=== PATIENT | female | born 1950 | race Caucasian/White ===

== ENCOUNTER → 2019-07-24 | Outpatient (CLI) | payer MEDICARE, SELFPAY | PROVIDERS: Family Provider Nurse Practitioner; Visit Provider Internal Medicine Hematology & Oncology | DX: D64.9 Anemia, unspecified (principal); D72.819 Decreased white blood cell count, unspecified | CPT/HCPCS: 82607; 82728; 85025; 99213 ==

== ENCOUNTER 2020-01-05 14:14 | Outpatient (CLI) | payer MEDICARE, SELFPAY ==
[2020-01-05 14:40] LABS: Basophils % 0.4 %; Eosinophils % 0.7 %; Hematocrit 38.8 % (37.0-47.0); Lymphocytes % 35.7 %; Mean Corpuscular HGB Conc 30.9 g/dL (30.0-36.0); Mean Corpuscular Hemoglobin 27.8 pg (28.0-34.0); Mean Platelet Volume 10.9 fL (7.4-10.4); Monocytes # 0.4 10^3/uL (0.2-0.9); Monocytes % 13.4 %; Neutrophils # 1.3 10^3/uL (1.8-7.7); Neutrophils % 49.8 %; Nucleated Red Blood Cells % 0 %; Platelet Count 179 10^3/cmm (130-400); Red Blood Count 4.31 10^6/uL (4.1-5.3); White Blood Count 2.7 10^3/uL (4.0-10.0)
[2020-01-05 15:03] LABS: Ferritin 137 ng/mL (15-150)
[2020-01-05 15:15] LABS: Vitamin B12 486 pg/mL (232-1245)
--- NOTE | 2020-01-05 16:24 | ONC FU_ITS ---
Dr. Valerio follow up note Patient: Clare Stovall Unit #: [id number]: 1950 Dicatated By: Shilpa Valerio M.D.Date of Visit:Jan 05, 2020 Onc Med Follow-up/Prog Note History of Present Illness: Mrs. Clare Stovall is a 69-year-old female who was admitted to hospital on 01/10/2019 with multiple bee stings. 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 She was treated with supportive care and epinephrine drip and her initial lab showed severe anemia hemoglobin was 7.3 g hematocrit 24.6 white blood count 3.8 and platelets 379,000 she was given 2 units of packed RBCs. Prior to admission she was not aware of anemia and anemia related symptoms. Patient denies any history of melena or hematochezia, denies any history of hemoptysis or hematemesis, denies any history of nosebleed or gross bleeding. History of anemia during at that time she took iron supplements. EGD colonoscopy done on 03/23/2019 showed moderate chronic patchy gastritis but no bleeding and colonoscopy was unremarkable. Came for follow-up, denies any specific complaints, no fever or chills, no nausea or vomiting, no diarrhea or constipation, no weight loss, appetite is good, no shortness of breath or palpitation. Medications: Ferrous Sulfate 1 Tablet (of 325 (65 fe) mg) Oral daily, Metoprolol Tartrate 1 Tablet (of 25 mg) Oral b.i.d. Allergies: Bee Sings Review of Systems: Review of Systems is not available for this patient. Vital Signs: Performed on Jan 05, 2020 15:42 Height - 61.50 in Weight - 127.8 lbs (HIGH) BSA - 1.57 sq.m BMI - 23.76 Temperature - 97.2 F (LOW) Pulse - 77 /min Respiration - 18 /min BP - 208/117 mm(hg) (HIGH) O2 Sat - 97 % Pain - 0 Performance Status: 0 - Fully active, able to carry on all predisease activities without restrictions. (ECOG) Physical Examination: ENMT - No mouth sores, no thrush, Respiratory - Lungs are clear, Cardiovascular - Regular rate and rhythm of heart, Abdomen - Soft, bowel sounds present, Extremities - No visible edema. Lab/Imaging: Test performed on Jan 05, 2020 14:24 WBC 2.7 10 3/uL RBC 4.31 10 6/uL HGB 12.0 g/dL HCT 38.8 % MCV 90.0 fL MCH 27.8 pg MCHC 30.9 g/dL RDW 13.0 % Platelet Count 179 10 3/cmm MPV 10.9 fL Neutrophils 1.3 10 3/uL Lymphocytes 1.0 10 3/uL Monocytes 0.4 10 3/uL Eosinophils 0.0 10 3/uL Basophils 0.0 10 3/uL Neutrophil % 49.8 % Lymphocyte % 35.7 % Monocyte % 13.4 % Eosinophil % 0.7 % Basophils % 0.4 % NRBC % 0 % Test performed on Jul 24, 2019 09:10 Ferritin 123.0 ng/ml Vitamin B12 693 pg/mL Impression: Microcytic anemia most likely iron deficiency due to either malabsorption or chronic GI blood loss. Considering her age underlying myelodysplasia cannot be ruled out. Her CBC from 01/10/2019 showed white blood count 3.8, hemoglobin 7.3 mg, hematocrit 24.6 platelets 379,000 and creatinine 1 Lab workup done on 01/15/2019 shows B12 207 normal being 232 -1245 and ferritin 25 folic acid 6 iron saturation 4.6 She was given 2 units of packed RBCs on 01/11/2019 Plan: Discussed with patient regarding her labs white blood count 2.7 hemoglobin 12 hematocrit 38.8 platelets 179,000 absolute neutrophil count 1300 ferritin 137, B12 486 Clinically, patient is doing well, no new signs symptoms, or follow-up labs shows hemoglobin and iron stores as well as B12 level is within normal range but there is a progressive leukopenia, etiology unclear but considering her age underlying myelodysplasia cannot be ruled out. We will monitor her closely and she will return to clinic in 2 months with CBC and if it shows progressive leukopenia then will consider bone marrow evaluation. Signed By: Shilpa Valerio M.D. <<Signature on File>>
--- NOTE | 2020-01-05 16:27 | ONC FU_ITS ---
Dr. Valerio follow up note Patient: Clare Stovall Unit #: [id number]: 1950 Dicatated By: Shilpa Valerio M.D.Date of Visit:Jan 05, 2020 Onc Med Follow-up/Prog Note History of Present Illness: Mrs. Clare Stovall is a 69-year-old female who was admitted to hospital on 01/10/2019 with multiple bee stings. 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 She was treated with supportive care and epinephrine drip and her initial lab showed severe anemia hemoglobin was 7.3 g hematocrit 24.6 white blood count 3.8 and platelets 379,000 she was given 2 units of packed RBCs. Prior to admission she was not aware of anemia and anemia related symptoms. Patient denies any history of melena or hematochezia, denies any history of hemoptysis or hematemesis, denies any history of nosebleed or gross bleeding. History of anemia during at that time she took iron supplements. EGD colonoscopy done on 03/23/2019 showed moderate chronic patchy gastritis but no bleeding and colonoscopy was unremarkable. Came for follow-up, denies any specific complaints, no fever or chills, no nausea or vomiting, no diarrhea or constipation, no weight loss, appetite is good, no shortness of breath or palpitation. Medications: Ferrous Sulfate 1 Tablet (of 325 (65 fe) mg) Oral daily, Metoprolol Tartrate 1 Tablet (of 25 mg) Oral b.i.d. Allergies: Bee Sings Review of Systems: Review of Systems is not available for this patient. Vital Signs: Performed on Jan 05, 2020 15:42 Height - 61.50 in Weight - 127.8 lbs (HIGH) BSA - 1.57 sq.m BMI - 23.76 Temperature - 97.2 F (LOW) Pulse - 77 /min Respiration - 18 /min BP - 208/117 mm(hg) (HIGH) O2 Sat - 97 % Pain - 0 Performance Status: 0 - Fully active, able to carry on all predisease activities without restrictions. (ECOG) Physical Examination: ENMT - No mouth sores, no thrush, Respiratory - Lungs are clear, Cardiovascular - Regular rate and rhythm of heart, Abdomen - Soft, bowel sounds present, Extremities - No visible edema. Lab/Imaging: Test performed on Jan 05, 2020 14:24 WBC 2.7 10 3/uL RBC 4.31 10 6/uL HGB 12.0 g/dL HCT 38.8 % MCV 90.0 fL MCH 27.8 pg MCHC 30.9 g/dL RDW 13.0 % Platelet Count 179 10 3/cmm MPV 10.9 fL Neutrophils 1.3 10 3/uL Lymphocytes 1.0 10 3/uL Monocytes 0.4 10 3/uL Eosinophils 0.0 10 3/uL Basophils 0.0 10 3/uL Neutrophil % 49.8 % Lymphocyte % 35.7 % Monocyte % 13.4 % Eosinophil % 0.7 % Basophils % 0.4 % NRBC % 0 % Test performed on Jul 24, 2019 09:10 Ferritin 123.0 ng/ml Vitamin B12 693 pg/mL Impression: Microcytic anemia most likely iron deficiency due to either malabsorption or chronic GI blood loss. Considering her age underlying myelodysplasia cannot be ruled out. Her CBC from 01/10/2019 showed white blood count 3.8, hemoglobin 7.3 mg, hematocrit 24.6 platelets 379,000 and creatinine 1 Lab workup done on 01/15/2019 shows B12 207 normal being 232 -1245 and ferritin 25 folic acid 6 iron saturation 4.6 She was given 2 units of packed RBCs on 01/11/2019 Plan: Discussed with patient regarding her labs white blood count 2.7 hemoglobin 12 hematocrit 38.8 platelets 179,000 absolute neutrophil count 1300 ferritin 137, B12 486 Clinically, patient is doing well, no new signs symptoms, or follow-up labs shows hemoglobin and iron stores as well as B12 level is within normal range but there is a progressive leukopenia, etiology unclear but considering her age underlying myelodysplasia cannot be ruled out. Other possibility could be splenic sequestration, we will consider abdominal sonogram with special attention to spleen size. We will monitor her closely and she will return to clinic in 2 months with CBC and if it shows progressive leukopenia then will consider bone marrow evaluation. Signed By: Shilpa Valerio M.D. <<Signature on File>>
== END 2020-01-05 14:15 | disposition home or self-care (01) ==
LOC: ONCMED 14:19
PROVIDERS: PCP Nurse Practitioner; Visit Provider Internal Medicine Hematology & Oncology
DX: D50.9 Iron deficiency anemia, unspecified (principal); D51.9 Vitamin B12 deficiency anemia, unspecified; D72.819 Decreased white blood cell count, unspecified
CPT/HCPCS: 36415; 82607; 82728; 85025; 99214

== ENCOUNTER 2020-02-01 09:19 | Outpatient (CLI) | payer MEDICARE, SELFPAY ==
--- NOTE | 2020-02-01 09:29 | US_ITS ---
WS: [id number] Complete ABDOMINAL ULTRASOUND HISTORY: LEUKOPENIA COMPARISON: None available. Liver: 10.2 cm in length. Liver is normal size and echogenicity with no mass or intrahepatic dilatati on. Gallbladder: Normally distended gallbladder with stones. No wall thickening. No pericholecystic fluid . Gallbladder wall thickness: 0.1 cm. Pancreas: Normal size and echogenicity. CBD: 0.2 cm. Right kidney: 8.4 cm x 4.0 cm x 3.6 cm. Mild cortical thinning. Mild atrophy with no hydronephrosis or solid mass. Left kidney: 7.8 cm x 4.0 cm x 3.6 cm. Mild renal atrophy and cortical thinning. 2 cyst upper pole L EFT kidney. Largest measures 2.3 x 2.2 x 1.7 cm. Spleen: Spleen is normal length. 10.9 cm. Abdominal aorta and IVC are within normal limits. No ascites. US/US abdomen complete* [id number] IMPRESSION: 1. Mild bilateral renal atrophy and LEFT renal cysts. 2. Cholelithiasis without acute cholecystitis. 3. Normal length spleen at 10.9 cm.
== END 2020-02-01 09:20 | disposition home or self-care (01) ==
LOC: US 09:20
PROVIDERS: PCP Nurse Practitioner; Visit Provider Internal Medicine Hematology & Oncology
DX: D72.819 Decreased white blood cell count, unspecified (principal); N26.1 Atrophy of kidney (terminal); Q61.02 Congenital multiple renal cysts; K80.20 Calculus of gallbladder without cholecystitis without obstruction
CPT/HCPCS: 76700

== ENCOUNTER 2020-03-09 09:58 | Outpatient (CLI) | payer MEDICARE, SELFPAY ==
[2020-03-09 10:42] LABS: Basophils % 0.3 %; Eosinophils # 0.1 10^3/uL (0.0-0.8); Eosinophils % 1.5 %; Hematocrit 40.3 % (37.0-47.0); Hemoglobin 12.5 g/dL (11.5-15.3); Lymphocytes # 1.1 10^3/uL (0.8-4.8); Lymphocytes % 30.8 %; Mean Corpuscular Hemoglobin 27.5 pg (28.0-34.0); Mean Corpuscular Volume 88.8 fL (81-99); Mean Platelet Volume 11.2 fL (7.4-10.4); Monocytes # 0.5 10^3/uL (0.2-0.9); Monocytes % 13.4 %; Neutrophils # 1.85 10^3/uL (1.8-7.7); Neutrophils % 53.7 %; Nucleated Red Blood Cells % 0 %; Platelet Count 166 10^3/cmm (130-400); Red Blood Count 4.54 10^6/uL (4.1-5.3); Red Cell Distribution Width 13.3 % (12.1-15.1); White Blood Count 3.4 10^3/uL (4.0-10.0)
--- NOTE | 2020-03-10 16:31 | ONC FU_ITS ---
Dr. Valerio follow up note Patient: Clare Stovall Unit #: [id number]: 1950 Dicatated By: Shilpa Valerio M.D.Date of Visit:Mar 09, 2020 Onc Med Follow-up/Prog Note History of Present Illness: Mrs. Clare Stovall is a 69-year-old female who was admitted to hospital on 01/10/2019 with multiple bee stings. 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 She was treated with supportive care and epinephrine drip and her initial lab showed severe anemia hemoglobin was 7.3 g hematocrit 24.6 white blood count 3.8 and platelets 379,000 she was given 2 units of packed RBCs. Prior to admission she was not aware of anemia and anemia related symptoms. Patient denies any history of melena or hematochezia, denies any history of hemoptysis or hematemesis, denies any history of nosebleed or gross bleeding. History of anemia during at that time she took iron supplements. EGD colonoscopy done on 03/23/2019 showed moderate chronic patchy gastritis but no bleeding and colonoscopy was unremarkable. Abdominal sonogram done on February 01, 2020 showed mild bilateral renal atrophy with left renal cysts spleen is normal size Came for follow-up, denies any specific complaints, no nausea no vomiting, no diarrhea no constipation, no fever chills, no peripheral lymphadenopathy, no abdominal fullness, no night sweats, no weight loss, no recurrent fever, no melena or hematochezia Medications: Ferrous Sulfate 1 Tablet (of 325 (65 fe) mg) Oral daily, Metoprolol Tartrate 1 Tablet (of 25 mg) Oral b.i.d. Allergies: Bee Sings Review of Systems: Constitutional - Appetite is fair and weight is stable. No fever, chills, hot flashes, or night sweats. Energy level is fair, ENMT - No sinus congestion/drainage. No mouth sores. No sore throat or difficulty swallowing, Hematologic/Lymphatic - Pt reports frequent nosebleeds, Respiratory - No shortness of breath. No cough. No pleuritic pain or hemoptysis, Cardiovascular - No angina pain. Positive for palpitations, Gastrointestinal - No nausea or vomiting. No heartburn or acid reflux. No diarrhea or constipation. No blood in the stool or black stools, Genitourinary (F) - No dysuria or hematuria. Positive for nocturia. No urgency, Positive for incontinence, Musculoskeletal - Positive for joint pain, Neurologic - No headache or dizziness. No numbness/paresthesias or other focal neurologic symptoms, Psychiatric - No anxiety or depression. Positive for insomnia. Vital Signs: Performed on Mar 09, 2020 12:04 Height - 61.50 in Weight - 125.0 lbs (LOW) BSA - 1.56 sq.m BMI - 23.24 Temperature - 98.4 F Pulse - 64 /min Respiration - 18 /min BP - 130/90 mm(hg) O2 Sat - 99 % Pain - 0 Performance Status: 0 - Fully active, able to carry on all predisease activities without restrictions. (ECOG) Physical Examination: ENMT - No mouth sores, no thrush, no jaundice, Respiratory - Lungs are clear, Cardiovascular - Regular rate and rhythm of heart, Abdomen - Soft, bowel sounds present, Extremities - No visible edema or rash. Lab/Imaging: Test performed on Jan 05, 2020 14:24 Ferritin 137 ng/mL Vitamin B12 486 pg/mL WBC 2.7 10 3/uL RBC 4.31 10 6/uL HGB 12.0 g/dL HCT 38.8 % MCV 90.0 fL MCH 27.8 pg MCHC 30.9 g/dL RDW 13.0 % Platelet Count 179 10 3/cmm MPV 10.9 fL Neutrophils 1.3 10 3/uL Lymphocytes 1.0 10 3/uL Monocytes 0.4 10 3/uL Eosinophils 0.0 10 3/uL Basophils 0.0 10 3/uL Neutrophil % 49.8 % Lymphocyte % 35.7 % Monocyte % 13.4 % Eosinophil % 0.7 % Basophils % 0.4 % NRBC % 0 % Impression: Microcytic anemia most likely iron deficiency due to either malabsorption or chronic GI blood loss. Considering her age underlying myelodysplasia cannot be ruled out. Her CBC from 01/10/2019 showed white blood count 3.8, hemoglobin 7.3 mg, hematocrit 24.6 platelets 379,000 and creatinine 1 Lab workup done on 01/15/2019 shows B12 207 normal being 232 -1245 and ferritin 25 folic acid 6 iron saturation 4.6 She was given 2 units of packed RBCs on 01/11/2019 Plan: Discussed with patient regarding her labs white blood 3.4 compared to 2.7 on January 05, 2020, hemoglobin 12.5 hematocrit 40.3 platelets 166,000, ANC 1850 Ferritin 137, B12 486, abdominal sonogram showed no splenomegaly Clinically, patient is doing well with no new signs symptoms, her follow-up CBC shows persistent mild but not improving leukopenia with mild monocytosis, reactive versus underlying myelodysplasia/myeloproliferative disorder, her ferritin is within normal range patient is on daily oral iron, she was advised to cut down to twice a week and her B12 is also within normal range. Considering her age underlying myelodysplasia cannot be ruled out which can cause isolated leukopenia, as her follow-up CBC stable, mild, now improving leukopenia with normal hemoglobin and platelet count, will continue to monitor. And she will return to clinic in 6 months with CBC Signed By: Shilpa Valerio M.D. <<Signature on File>>
== END 2020-03-09 09:59 | disposition home or self-care (01) ==
LOC: ONCMED 10:02
PROVIDERS: PCP Nurse Practitioner; Visit Provider Internal Medicine Hematology & Oncology
DX: D50.0 Iron deficiency anemia secondary to blood loss (chronic) (principal); I10 Essential (primary) hypertension
CPT/HCPCS: 85025; G0463

== ENCOUNTER 2020-10-03 09:08 | Outpatient (CLI) | payer MEDICARE, SELFPAY ==
[2020-10-03 09:42] LABS: Basophils % 0.7 %; Eosinophils % 1.5 %; Hematocrit 38.9 % (37.0-47.0); Lymphocytes # 0.8 10^3/uL (0.8-4.8); Lymphocytes % 27.9 %; Mean Corpuscular HGB Conc 30.8 g/dL (30.0-36.0); Mean Corpuscular Hemoglobin 27.1 pg (28.0-34.0); Mean Corpuscular Volume 87.8 fL (81-99); Mean Platelet Volume 10.7 fL (7.4-10.4); Monocytes # 0.3 10^3/uL (0.2-0.9); Monocytes % 12.3 %; Neutrophils # 1.55 10^3/uL (1.8-7.7); Neutrophils % 57.6 %; Nucleated Red Blood Cells % 0 %; Platelet Count 190 10^3/cmm (130-400); Red Blood Count 4.43 10^6/uL (4.1-5.3); Red Cell Distribution Width 13.4 % (12.1-15.1); White Blood Count 2.7 10^3/uL (4.0-10.0)
== END 2020-10-03 09:09 | disposition home or self-care (01) ==
LOC: ONCMED 09:11
PROVIDERS: PCP Nurse Practitioner; Visit Provider Internal Medicine Hematology & Oncology
DX: D72.819 Decreased white blood cell count, unspecified (principal); D64.9 Anemia, unspecified
CPT/HCPCS: 36415; 85025

== ENCOUNTER 2020-10-04 05:41 | Outpatient (CLI) | payer MEDICARE, SELFPAY ==
--- NOTE | 2020-10-04 16:04 | ONC FU_ITS ---
Dr. Valerio follow up note Patient: Clare Stovall Unit #: [id number]: 1950 Dicatated By: Shilpa Valerio M.D.Date of Visit:Oct 04, 2020 Onc Med Follow-up/Prog Note History of Present Illness: Mrs. Clare Stovall is a 70-year-old female who was admitted to hospital on 01/10/2019 with multiple bee stings. 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 She was treated with supportive care and epinephrine drip and her initial lab showed severe anemia hemoglobin was 7.3 g hematocrit 24.6 white blood count 3.8 and platelets 379,000 she was given 2 units of packed RBCs. Prior to admission she was not aware of anemia and anemia related symptoms. Patient denies any history of melena or hematochezia, denies any history of hemoptysis or hematemesis, denies any history of nosebleed or gross bleeding. History of anemia during at that time she took iron supplements. EGD colonoscopy done on 03/23/2019 showed moderate chronic patchy gastritis but no bleeding and colonoscopy was unremarkable. Abdominal sonogram done on February 01, 2020 showed mild bilateral renal atrophy with left renal cysts spleen is normal size Came for follow-up, denies any specific complaints, no fever chills no nausea or vomiting, no diarrhea or constipation, no recurrent fever, no dysuria, no sinus problem.No night sweats, no weight loss, no recurrent infection Medications: Ferrous Sulfate 1 Tablet (of 325 (65 fe) mg) Oral daily, Metoprolol Tartrate 1 Tablet (of 25 mg) Oral b.i.d. Allergies: Bee Sings Review of Systems: Review of Systems is not available for this patient. Vital Signs: Performed on Oct 04, 2020 08:31 Height - 61.50 in Weight - 126 lbs (HIGH) BSA - 1.56 sq.m BMI - 23.42 Temperature - 98.4 F Pulse - 99 /min Respiration - 18 /min BP - 150/90 mm(hg) (HIGH) O2 Sat - 98 % Pain - 0 Fatigue - 0 Performance Status: 0 - Fully active, able to carry on all predisease activities without restrictions. (ECOG) Physical Examination: ENMT - No mouth sores, no thrush, no jaundice, Respiratory - Lungs are clear to auscultation, Cardiovascular - Regular rate and rhythm of heart, Abdomen - No abdominal mass, bowel sounds present, Extremities - No visible edema, no rash. Lab/Imaging: Most recent lab results are not available for this patient. Impression: Microcytic anemia most likely iron deficiency due to either malabsorption or chronic GI blood loss. Considering her age underlying myelodysplasia cannot be ruled out. Her CBC from 01/10/2019 showed white blood count 3.8, hemoglobin 7.3 mg, hematocrit 24.6 platelets 379,000 and creatinine 1 Lab workup done on 01/15/2019 shows B12 207 normal being 232 -1245 and ferritin 25 folic acid 6 iron saturation 4.6 She was given 2 units of packed RBCs on 01/11/2019 Plan: Discussed with patient regarding his labs white blood count 2.7 hemoglobin 12 hematocrit 38.9 platelets 190,000 ANC 1550 Clinically, patient is doing reasonably well with no new signs symptoms or follow-up labs shows fluctuating mild leukopenia and today white blood count is 2700 compared to 3400 on March 09, 2020, at this point patient was recommended bone marrow evaluation to rule out underlying myelodysplasia but 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 She will return to clinic in 2 months with CBC and if leukopenia persists or progressed, will consider bone marrow evaluation Signed By: Shilpa Valerio M.D. <<Signature on File>>
== END 2020-10-04 05:42 | disposition home or self-care (01) ==
LOC: ONCMED 05:44
PROVIDERS: PCP Nurse Practitioner; Visit Provider Internal Medicine Hematology & Oncology
DX: D72.819 Decreased white blood cell count, unspecified (principal); D64.9 Anemia, unspecified
CPT/HCPCS: G0463

== ENCOUNTER 2021-03-06 11:22 | Inpatient (IN) | payer MEDICARE, SELFPAY ==
[2021-03-06] VITALS (9 sets, daily range): BP systolic 161–170; BP diastolic 86–108; PULSE 105–130; RESP 20–40; TEMP 37.4–38.1; O2SAT 94–99; BMI 21.0
--- NOTE | 2021-03-06 11:40 | CT_ITS ---
WS: [id number] CT HEAD TECHNIQUE: Noncontrast CT of the head obtained from the skullbase to the vertex. CLINICAL INFORMATION: Stroke like symptoms. Fall. COMPARISON: None. DLP: 938.[address] scans at [facility] use at least one of these dose optimization techniques: automat ed exposure control; mA and/or kV adjustment per patient size (includes targeted exams where dose is matched to clinical indication); or iterative reconstruction. FINDINGS: No evidence of intracranial hemorrhage or mass effect. Ventricular system and basal cisterns are cho nt. Moderate small vessel changes with moderate parenchymal volume loss. 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 Mastoid air cells are well aerated. Mild mucosal thickening in the eth moid air cells Soft tissue swelling partially visualized over the right facial soft tissues. Partially visualized lo w-attenuation parotid nodules largest measuring [address]/CT head wo con* [id number] IMPRESSION: 1. No evidence of intracranial hemorrhage or mass effect. 2. Moderate small vessel changes with moderate parenchymal volume loss. 3. 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 4. Partially visualized low-attenuation left parotid nodules in accessory paro tid tissue largest measuring 15 x 15 mm. This can be followed up with contrast- enhanced neck CT.
--- NOTE | 2021-03-06 11:40 | XRR_ITS ---
PROCEDURE INFORMATION: Exam: XR Chest Exam date and time: 03/06/2021 11:40 AM Age: 70 years old Clinical indication: Tachypnea; Additional info: AMS, tachycardia, tachypnea TECHNIQUE: Imaging protocol: XR of the chest. Views: 1 view. COMPARISON: No relevant prior studies available. FINDINGS: Lungs: Nonspecific interstitial thickening. No consolidation. Pleural spaces: Unremarkable. No pleural effusion. No pneumothorax. Heart/Mediastinum: Borderline minimal cardiomegaly. Bones/joints: No acute findings. XR/XR chest 1V portable [id number] IMPRESSION: No acute findings.
--- NOTE | 2021-03-06 11:40 | W.ED.AMS ---
HPI - Altered Mental Status General: Chief Complaint: ER Hold Stated Complaint: CONFUSION Time Seen by Provider: 03/06/21 11:23 Source: EMS Limitations: altered mental status History of Present Illness: HPI narrative: Ms. Stovall is a 70-year-old lady with somewhat unclear past medical history presents emergency department after being found down confused. Reportedly she was last seen normal on Saturday. 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 Per EMS report patient reported being down since approximately Saturday morning though exact circumstances of her fall are somewhat unclear. She was found today by a coworker. She does have swelling around her right eye and confused speech. She was tachycardic and had a strong urine smell. No other specific traumatic injuries were identified by EMS crew. Blood glucose was normal. History otherwise limited by mental status change. MD complaint: altered mental status and confusion Review of Systems General: Reports: ROS unobtainable due to mental status Narrative: Unable to obtain due to mental status change [facility] ED PFSH: Medical History (Updated 03/06/21 @ 16:52 by Major Damian MD) History of microcytic hypochromic anemia Surgical History (Updated 03/06/21 @ 16:50 by Major Damian MD) History of 3 sections Family History (Updated 03/06/21 @ 16:50 by Major Damian MD) Father Lung cancer Social History (Updated 03/06/21 @ 16:50 by Major Damian MD) Smoking and tobacco status: never smoked Alcohol intake: never Substance/Drug Use: never Physical Exam Narrative: EXAM NARRATIVE: GENERAL/CONSTITUTIONAL -moderately ill-appearing., Confused. Eyes - PERRL. There is significant edema with purulent sticky discharge of the right eye and periorbital edema. There is conjunctival injection. ENMT - Atraumatic external nose and ears. Moist mucous membranes NECK - supple. trachea midline CARDIOVASCULAR -tachycardia. Regular rate and rhythm. Peripheral pulses 2+ and equal RESPIRATORY -clear to auscultation bilaterally. No retractions or accessory muscle use. ABDOMEN/GI -generalized moderate tenderness to deep palpation.. No tenderness to percussion or evidence of peritonitis MSK - Extremities without obvious deformity or tenderness to palpation SKIN - Warm, Dry. Rash on the lower extremities that appears mildly purpuric though may be diffuse insect bites after scratching NEURO - confused and disoriented strength and sensation intact. Moves all extremities equally. PSYCH -confused and mildly anxious Course ED course: - Patient was seen and evaluated by me at bedside - Patient placed on cardiac monitors, IV access obtained - Initial evaluation notable for ill appearance, patient is confused though no focal deficits are appreciated. The patient did grimace to movement of hip however distal CMS intact and no obvious deformity noted. - Labs notable for normal white blood cell count though this is markedly increased from leukopenia from prior reading, likely hemoconcentration compared to prior. Metabolic panel with minimally elevated anion gap and creatinine. Lactate elevated. CK elevated. Urinalysis concerning for urinary tract infection. - Imaging notable for ED read of chest x-ray with no pneumothorax or lobar consolidation. CT head and neck ordered given possibility of intracranial pathology as an explanation for altered mental status in addition to trauma. Orbital CT ordered due to concern over orbital cellulitis. Given tenderness to palpation of the abdomen and pelvis CT imaging was included. Chest x-ray ordered due to risk of pulmonary source of infection as well as risk of aspiration event. - Fluids and antibiotics given. Due to elevated CK additional fluids ordered. - Upon serial reexamination after treatment the patient was mildly improved in overall appearance however patient continues to be tachycardic and ill - Based on patient history, evaluation, labs, and imaging as interpreted the most likely cause of the patient's condition is sepsis associated with urinary tract infection as well as rhabdomyolysis - The results of ED evaluation were discussed with the patient including plan for admission due to requirement for level of care not available if discharged to prevent significant worsening/deterioration. - Admitting service was contacted and Dr Damian with internal medicine hospitalist agreed to admit the patient - Patient was admitted without further deterioration or significant events. Vital Signs: Vital signs: Vital Signs Temperature 100.6 F H 03/06/21 12:01 Pulse Rate 114 H 03/06/21 22:47 Respiratory Rate 40 H 03/06/21 22:47 Blood Pressure 167/94 03/06/21 22:47 Pulse Oximetry 94 03/06/21 22:47 MDM - Altered Mental Status Medical Records: Attestation: I reviewed the patient's medical records. Lab Data: Attestation: I reviewed the patient's lab results. Labs: Lab Results 08/09/21 08/09/21 08/09/21 Range/Units 12:30 12:30 12:30 WBC 8.2 (4.0-10.0) 10^3/ uL RBC 5.51 H (4.1-5.3) 10^6/u L Hgb 14.3 (11.5-15.3) g/dL Hct 48.1 H (37.0-47.0) % MCV 87.3 (81-99) fL MCH 26.0 L (28.0-34.0) pg MCHC 29.7 L (30.0-36.0) g/dL RDW 15.8 H (12.1-15.1) % Plt Count 168 (130-400) 10^3/c mm MPV 11.7 H (7.4-10.4) fL Neut % (Auto) 87.3 % Lymph % (Auto) 6.6 % Rich % (Auto) 5.3 % Eos % (Auto) 0.0 % Baso % (Auto) 0.2 % Neut # (Auto) 7.14 (1.8-7.7) 10^3/u L Lymph # (Auto) 0.5 L (0.8-4.8) 10^3/u L Rich # (Auto) 0.4 (0.2-0.9) 10^3/u L Eos # (Auto) 0.0 (0.0-0.8) 10^3/u L Baso # (Auto) 0.0 (0.0-0.1) 10^3/u L Nucleated RBC % (a uto) 0 % Nucleated RBCs # 0.0 /100WBC PT 13.20 (12.1-14.9) SECO NDS INR 0.97 (0.8-1.2) APTT 28.1 (23.9-36.7) SECO NDS Sodium 140 (136-145) mmol/L Potassium 4.3 (3.5-5.1) mmol/L Chloride 102 (98-107) mmol/L Carbon Dioxide 23 (22-29) mmol/L Anion Gap 19.3 H (5-19) BUN 28 H (8-23) mg/dL Creatinine 1.0 H (0.5-0.9) mg/dL GFR Calculation Not Reportable Glucose 160 H (65-115) mg/dL Calculated Osmolal ity 299 H (285-295) mOsm/k g Lactate (0.5-2.2) mmol/L Calcium 10.0 (8.5-10.5) mg/dL Total Bilirubin 0.4 (0.15-1.2) mg/dL AST 77 H (0-32) U/L ALT 20 (0-33) U/L Alkaline Phosphata se 86 (35-105) IU/L Creatine Kinase 2116 H* (26-192) U/L Troponin T Baselin e (0-10) ng/L Troponin T 120 Min [place] (0-10) ng/L Delta Troponin T Troponin T Hi Sens 6Hr (0-10) ng/L Troponin T Hi Sens 6Hr Delta (0-12) ng/L C-Reactive Protein (0.0-4.9) mg/L NT-Pro-B Natriuret Pep (0-125) pg/mL Total Protein 8.0 (6.6-8.7) g/dL Albumin 3.6 (3.5-5.2) g/dL Globulin 4.4 (1.3-4.6) g/dL Procalcitonin (0-0.5) ng/mL TSH (0.27-4.20) uIU/ mL Urine Color (Yellow) Urine Appearance (CLEAR) Urine pH (5-7) Ur Specific Gravit y (1.005-1.030) Urine Protein (Negative) Urine Glucose (UA) (Normal) Urine Ketones (Negative) Urine Blood (Negative) Urine Nitrate (Negative) Urine Bilirubin (Negative) Urine Urobilinogen (Negative) mg/dL Ur Leukocyte Layla ase (Negative) Urine RBC (0-2) /hpf Urine WBC (0-5) /hpf Ur Squamous Epith Cells (0-5) /hpf Amorphous Sediment Urine Bacteria (NONE) /hpf SARS-CoV-2 Ag (Rap id) (Negative) 03/06/21 03/06/21 03/06/21 Range/Units 12:30 12:30 12:30 WBC (4.0-10.0) 10^3/ uL RBC (4.1-5.3) 10^6/u L Hgb (11.5-15.3) g/dL Hct (37.0-47.0) % MCV (81-99) fL MCH (28.0-34.0) pg MCHC (30.0-36.0) g/dL RDW (12.1-15.1) % Plt Count (130-400) 10^3/c mm MPV (7.4-10.4) fL Neut % (Auto) % Lymph % (Auto) % Rich % (Auto) % Eos % (Auto) % Baso % (Auto) % Neut # (Auto) (1.8-7.7) 10^3/u L Lymph # (Auto) (0.8-4.8) 10^3/u L Rich # (Auto) (0.2-0.9) 10^3/u L Eos # (Auto) (0.0-0.8) 10^3/u L Baso # (Auto) (0.0-0.1) 10^3/u L Nucleated RBC % (a uto) % Nucleated RBCs # /100WBC PT (12.1-14.9) SECO NDS INR (0.8-1.2) APTT (23.9-36.7) SECO NDS Sodium (136-145) mmol/L Potassium (3.5-5.1) mmol/L Chloride (98-107) mmol/L Carbon Dioxide (22-29) mmol/L Anion Gap (5-19) BUN (8-23) mg/dL Creatinine (0.5-0.9) mg/dL GFR Calculation Glucose (65-115) mg/dL Calculated Osmolal ity (285-295) mOsm/k g Lactate 2.4 H (0.5-2.2) mmol/L Calcium (8.5-10.5) mg/dL Total Bilirubin (0.15-1.2) mg/dL AST (0-32) U/L ALT (0-33) U/L Alkaline Phosphata se (35-105) IU/L Creatine Kinase (26-192) U/L Troponin T Baselin e 28 H (0-10) ng/L Troponin T 120 Min [place] (0-10) ng/L Delta Troponin T Troponin T Hi Sens 6Hr (0-10) ng/L Troponin T Hi Sens 6Hr Delta (0-12) ng/L C-Reactive Protein (0.0-4.9) mg/L NT-Pro-B Natriuret Pep (0-125) pg/mL Total Protein (6.6-8.7) g/dL Albumin (3.5-5.2) g/dL Globulin (1.3-4.6) g/dL Procalcitonin (0-0.5) ng/mL TSH (0.27-4.20) uIU/ mL Urine Color Dark yellow (Yellow) Urine Appearance Hazy A (CLEAR) Urine pH 5 (5-7) Ur Specific Gravit y 1.025 (1.005-1.030) Urine Protein 2+ H (Negative) Urine Glucose (UA) Norm (Normal) Urine Ketones Negative (Negative) Urine Blood 3+ H (Negative) Urine Nitrate Negative (Negative) Urine Bilirubin Neg (Negative) Urine Urobilinogen Norm (Negative) mg/dL Ur Leukocyte Layla ase 2+ H (Negative) Urine RBC 5-10 H (0-2) /hpf Urine WBC >100 H (0-5) /hpf Ur Squamous Epith Cells None (0-5) /hpf Amorphous Sediment Not Reportable Urine Bacteria 3+ H (NONE) /hpf SARS-CoV-2 Ag (Rap id) (Negative) 03/06/21 03/06/21 03/06/21 Range/Units 12:30 12:30 16:51 WBC (4.0-10.0) 10^3/ uL RBC (4.1-5.3) 10^6/u L Hgb (11.5-15.3) g/dL Hct (37.0-47.0) % MCV (81-99) fL MCH (28.0-34.0) pg MCHC (30.0-36.0) g/dL RDW (12.1-15.1) % Plt Count (130-400) 10^3/c mm MPV (7.4-10.4) fL Neut % (Auto) % Lymph % (Auto) % Rich % (Auto) % Eos % (Auto) % Baso % (Auto) % Neut # (Auto) (1.8-7.7) 10^3/u L Lymph # (Auto) (0.8-4.8) 10^3/u L Rich # (Auto) (0.2-0.9) 10^3/u L Eos # (Auto) (0.0-0.8) 10^3/u L Baso # (Auto) (0.0-0.1) 10^3/u L Nucleated RBC % (a uto) % Nucleated RBCs # /100WBC PT (12.1-14.9) SECO NDS INR (0.8-1.2) APTT (23.9-36.7) SECO NDS Sodium (136-145) mmol/L Potassium (3.5-5.1) mmol/L Chloride (98-107) mmol/L Carbon Dioxide (22-29) mmol/L Anion Gap (5-19) BUN (8-23) mg/dL Creatinine (0.5-0.9) mg/dL GFR Calculation Glucose (65-115) mg/dL Calculated Osmolal ity (285-295) mOsm/k g Lactate (0.5-2.2) mmol/L Calcium (8.5-10.5) mg/dL Total Bilirubin (0.15-1.2) mg/dL AST (0-32) U/L ALT (0-33) U/L Alkaline Phosphata se (35-105) IU/L Creatine Kinase (26-192) U/L Troponin T Baselin e (0-10) ng/L Troponin T 120 Min [place] 36.08 H (0-10) ng/L Delta Troponin T TNP Troponin T Hi Sens 6Hr (0-10) ng/L Troponin T Hi Sens 6Hr Delta (0-12) ng/L C-Reactive Protein 117.8 H (0.0-4.9) mg/L NT-Pro-B Natriuret Pep 8597 H (0-125) pg/mL Total Protein (6.6-8.7) g/dL Albumin (3.5-5.2) g/dL Globulin (1.3-4.6) g/dL Procalcitonin 6.44 H (0-0.5) ng/mL TSH 0.90 (0.27-4.20) uIU/ mL Urine Color (Yellow) Urine Appearance (CLEAR) Urine pH (5-7) Ur Specific Gravit y (1.005-1.030) Urine Protein (Negative) Urine Glucose (UA) (Normal) Urine Ketones (Negative) Urine Blood (Negative) Urine Nitrate (Negative) Urine Bilirubin (Negative) Urine Urobilinogen (Negative) mg/dL Ur Leukocyte Layla ase (Negative) Urine RBC (0-2) /hpf Urine WBC (0-5) /hpf Ur Squamous Epith Cells (0-5) /hpf Amorphous Sediment Urine Bacteria (NONE) /hpf SARS-CoV-2 Ag (Rap id) Negative (Negative) 03/06/21 03/06/21 Range/Units 16:51 20:24 WBC (4.0-10.0) 10^3/ uL RBC (4.1-5.3) 10^6/u L Hgb (11.5-15.3) g/dL Hct (37.0-47.0) % MCV (81-99) fL MCH (28.0-34.0) pg MCHC (30.0-36.0) g/dL RDW (12.1-15.1) % Plt Count (130-400) 10^3/c mm MPV (7.4-10.4) fL Neut % (Auto) % Lymph % (Auto) % Rich % (Auto) % Eos % (Auto) % Baso % (Auto) % Neut # (Auto) (1.8-7.7) 10^3/u L Lymph # (Auto) (0.8-4.8) 10^3/u L Rich # (Auto) (0.2-0.9) 10^3/u L Eos # (Auto) (0.0-0.8) 10^3/u L Baso # (Auto) (0.0-0.1) 10^3/u L Nucleated RBC % (a uto) % Nucleated RBCs # /100WBC PT (12.1-14.9) SECO NDS INR (0.8-1.2) APTT (23.9-36.7) SECO NDS Sodium (136-145) mmol/L Potassium (3.5-5.1) mmol/L Chloride (98-107) mmol/L Carbon Dioxide (22-29) mmol/L Anion Gap (5-19) BUN (8-23) mg/dL Creatinine (0.5-0.9) mg/dL GFR Calculation Glucose (65-115) mg/dL Calculated Osmolal ity (285-295) mOsm/k g Lactate 2.3 H (0.5-2.2) mmol/L Calcium (8.5-10.5) mg/dL Total Bilirubin (0.15-1.2) mg/dL AST (0-32) U/L ALT (0-33) U/L Alkaline Phosphata se (35-105) IU/L Creatine Kinase (26-192) U/L Troponin T Baselin e (0-10) ng/L Troponin T 120 Min [place] (0-10) ng/L Delta Troponin T Troponin T Hi Sens 6Hr 29.98 H (0-10) ng/L Troponin T Hi Sens 6Hr Delta 1.98 (0-12) ng/L C-Reactive Protein (0.0-4.9) mg/L NT-Pro-B Natriuret Pep (0-125) pg/mL Total Protein (6.6-8.7) g/dL Albumin (3.5-5.2) g/dL Globulin (1.3-4.6) g/dL Procalcitonin (0-0.5) ng/mL TSH (0.27-4.20) uIU/ mL Urine Color (Yellow) Urine Appearance (CLEAR) Urine pH (5-7) Ur Specific Gravit y (1.005-1.030) Urine Protein (Negative) Urine Glucose (UA) (Normal) Urine Ketones (Negative) Urine Blood (Negative) Urine Nitrate (Negative) Urine Bilirubin (Negative) Urine Urobilinogen (Negative) mg/dL Ur Leukocyte Layla ase (Negative) Urine RBC (0-2) /hpf Urine WBC (0-5) /hpf Ur Squamous Epith Cells (0-5) /hpf Amorphous Sediment Urine Bacteria (NONE) /hpf SARS-CoV-2 Ag (Rap id) (Negative) Imaging Data^: CXR: Attestation: I personally reviewed and interpreted this imaging study as follows: My impression: No pneumothorax. Indistinctness of the left lateral heart border may be due to infiltrate. Radiologist's impression: No acute findings EKG Data^: EKG 1: Attestation: I personally reviewed and interpreted this EKG as follows: EKG interpretation date: 03/06/21 EKG interpretation time: 12:15 Prior EKG tracings: not available for review Ischemic changes: non-specific ST-T wave changes Interpretation: Twelve-lead EKG shows a regular sinus rhythm at a rate of 132 GA interval 112. Normal axis. Interpretation: Sinus tachycardia. Short GA. EKG 2: Attestation: I personally reviewed and interpreted this EKG as follows: EKG interpretation date: 03/06/21 Prior EKG tracings: available for review Interpretation: twelve-lead EKG shows a regular sinus rhythm at a rate of 105. GA interval 124. Normal axis. Attention: Sinus tachycardia. Critical Care Time Critical Care Time: Critical Care Time: Yes Total Critical Care Time: 35 Attestation: This case had a high probability of a clinically significant, sudden, or life threatening deterioration of this patient's condition which required my full and direct attention, intervention and personal management. Discharge Plan Discharge Patient Disposition: Admitted As Inpatient Admit Provider: Major Damian Clinical Impression: Altered mental status, Sepsis, Acute UTI, Blunt trauma of face, Cellulitis, Rhabdomyolysis Condition: Stable Coding Level of Care Code ED Return Agent [place] for Tasneem Pratt
--- NOTE | 2021-03-06 11:41 | ECG_ITS ---
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 Measurements Intervals [place] Rate: 132 P: 73 WA: 112 QRS: 54 QRSD: 80 T: 67 QT: 283 QTc: 420 Interpretive Statements SINUS TACHYCARDIA WITH SHORT WA INTERVAL Compared to ECG 01/10/2019 20:21:17 Short WA interval now present T-wave abnormality no longer present Electronically Signed On 03-06-2021 17:28:15 CDT by Apollo Oneal M.D. [id number]
--- NOTE | 2021-03-06 11:42 | CT_ITS ---
WS: [id number] CT ORBITS TECHNIQUE: Contrast-enhanced CT of the orbits with coronal and sagittal reformatted images. CLINICAL INFORMATION: R eye injury/swelling. sepsis. ?deep infection COMPARISON: None. DLP: 461.[address] scans at [facility] use at least one of these dose optimization techniques: automat ed exposure control; mA and/or kV adjustment per patient size (includes targeted exams where dose is matched to clinical indication); or iterative reconstruction. FINDINGS: Soft tissue edema overlying the right orbit. Recommend correlation with cellulitis or trauma. No evid ence of post septal extension. Normal intraconal fat. Normal rectus muscles. No drainable fluid colle ctions. No evidence of subperiosteal abscess. Enhancing extra-axial dural based lesion involving the right middle cranial fossa anteriorly most consistent with an en plaque meningioma measuring 2.1 x 1. 1 CM. This extends along the right middle cranial fossa and superiorly to the sylvian fissure. Normal nasal bones. Lateral orbits are normal in appearance. Paranasal sinuses and mastoid air cells are well aerated. Mild mucosal thickening in the ethmoid air cells. Normal pterygoid plates. No evide nce of mandibular fracture dislocation. Partially visualized low-attenuation left parotid nodules the largest measure 15 x 16 mm. This can be followed up with ultrasound for better anatomic detail. Cervical lymphadenopathy previously describe d on the cervical spine CT. CT/CT orbit BI w con [id number] IMPRESSION: 1. No acute facial fractures. Right orbit appears intact. 2. Soft tissue edema with enhancement overlying the right orbit consistent wit h cellulitis and/or contusion. No evidence of post septal extension. Normal int raconal fat. 3. No drainable abscess or fluid collection. 4. Enhancing extra-axial lesion right middle cranial fossa described above mos t consistent with en plaque meningioma. 5. Low-attenuation nodules involving the accessory left parotid tissue largest measuring 15 x 16 mm. This can be followed up with ultrasound for better anato maryse detail.
--- NOTE | 2021-03-06 11:42 | CT_ITS ---
WS: [id number] CT ABDOMEN PELVIS TECHNIQUE: Contrast-enhanced CT of the abdomen and pelvis with coronal and sagittal reformatted image s. CLINICAL INFORMATION: abdominal pain, AMS COMPARISON: None. DLP: 2455.[address] scans at [facility] use at least one of these dose optimization techniques: automat ed exposure control; mA and/or kV adjustment per patient size (includes targeted exams where dose is matched to clinical indication); or iterative reconstruction. FINDINGS: Mild diffuse fatty infiltration liver. Normal portal vein and splenic vein. Cholelithiasis. Normal sp damion. Large esophageal hiatal hernia with intrathoracic stomach. Compressive atelectasis in the lung bases. Normal pancreas. Adrenal glands are normal. Normal renal parenchymal enhancement. Right pelvoc aliectasis with mild ureterectasis. No visualized obstructing calculi. Left renal cysts the largest m easuring 2.1 CM. No abdominal or pelvic lymphadenopathy. No inguinal lymphadenopathy. Normal caliber abdominal aorta. Sigmoid diverticulosis. No evidence of acute diverticulitis. No evidence of high-grade small or large bowel obstruction. Urine distended bladder. Calcified uterine fibroid. Left ovarian cyst measuring 4 .1 x 3.8 x 2.8 cm. No free fluid in the abdomen or pelvis. CT/CT abdomen pelvis w con* [id number] IMPRESSION: 1. Mild diffuse fatty infiltration of the liver. 2. Cholelithiasis. 3. Large esophageal hiatal hernia with partial intrathoracic stomach. 4. Normal caliber abdominal aorta. 5. Large left ovarian cyst measuring 4.1 x 3.8 x 2.8 cm. 6. Urine distended bladder. 7. No free fluid in the abdomen or pelvis. 8. No evidence of small or large bowel obstruction.
--- NOTE | 2021-03-06 11:42 | CT_ITS ---
WS: [id number] CT CERVICAL TRAUMA TECHNIQUE: Noncontrast CT of the cervical spine with coronal and sagittal reformatted images. CLINICAL INFORMATION: AMS, fall trauma COMPARISON: None. DLP: 399.[address] scans at [facility] use at least one of these dose optimization techniques: automat ed exposure control; mA and/or kV adjustment per patient size (includes targeted exams where dose is matched to clinical indication); or iterative reconstruction. FINDINGS: Straightening of the normal cervical lordosis. Mild spondylitic changes. Disc space narrowing worse a t C4-C5 C5-C6 and C6-C7. Mild compression of the superior endplate T1 age indeterminant but may be ch ronic. Normal craniocervical junction. Normal C1-C2 articulation. Dens is normal in appearance. Mara l occipital condyles. No high-grade spinal canal narrowing. Normal C1 ring. Normal prevertebral soft tissues. Numerous enlarged bilateral cervical lymph nodes throughout both ce rvical chains. Mastoids air cells are well aerated. CT/CT cervical spin wo con* [id number] IMPRESSION: 1. Mild spondylitic changes. Straightening of the normal cervical lordosis. 2. Mild compression superior endplate T1 age indeterminant but may be chronic. 3. Otherwise no acute fractures. 4. Bilateral cervical lymphadenopathy throughout both cervical chains. Recomme nd correlation with history of malignancy or infection.
--- NOTE | 2021-03-06 12:12 | XRR_ITS ---
PROCEDURE INFORMATION: Exam: XR Pelvis Exam date and time: 03/06/2021 12:12 PM Age: 70 years old Clinical indication: Pain and injury or trauma; Fall; Blunt trauma (contusions or hematomas); Hip pain; Right hip; Additional info: R hip pain TECHNIQUE: Imaging protocol: XR pelvis. Views: 1 or 2 view. COMPARISON: No relevant prior studies available. FINDINGS: Bones/joints: Unremarkable. No acute fracture. Soft tissues: Unremarkable. XR/XR pelvis 1-2V* [id number] IMPRESSION: No acute findings.
[2021-03-06] MEDS: piperacillin-tazobactam 4.5 GM in sodium chloride 0.9% (plus) 50 ML IV (12:45)
[2021-03-06] MEDS: lactated ringers 1,000 ML 1503 ML IV (12:46)
[2021-03-06 12:55] LABS: Basophils % 0.2 %; Hematocrit 48.1 % (37.0-47.0); Hemoglobin 14.3 g/dL (11.5-15.3); Lymphocytes # 0.5 10^3/uL (0.8-4.8); Lymphocytes % 6.6 %; Mean Corpuscular HGB Conc 29.7 g/dL (30.0-36.0); Mean Corpuscular Volume 87.3 fL (81-99); Mean Platelet Volume 11.7 fL (7.4-10.4); Monocytes # 0.4 10^3/uL (0.2-0.9); Monocytes % 5.3 %; Neutrophils # 7.14 10^3/uL (1.8-7.7); Neutrophils % 87.3 %; Nucleated Red Blood Cells % 0 %; Platelet Count 168 10^3/cmm (130-400); Red Blood Count 5.51 10^6/uL (4.1-5.3); Red Cell Distribution Width 15.8 % (12.1-15.1); White Blood Count 8.2 10^3/uL (4.0-10.0)
[2021-03-06 13:00] LABS: INR 0.97 (0.8-1.2)
[2021-03-06 13:01] LABS: Partial Thromboplastin Time 28.1 SECONDS (23.9-36.7)
[2021-03-06 13:16] LABS: Troponin(5th) Baseline 28 ng/L (0-10)
[2021-03-06 13:19] LABS: Lactate (Lactic Acid level) 2.4 mmol/L (0.5-2.2)
[2021-03-06 13:20] LABS: Alanine Aminotransferase 20 U/L (0-33); Albumin Level 3.6 g/dL (3.5-5.2); Alkaline Phosphatase 86 IU/L (35-105); Blood Urea Nitrogen 28 mg/dL (8-23); Carbon Dioxide 23 mmol/L (22-29); Chloride 102 mmol/L (98-107); Globulin 4.4 g/dL (1.3-4.6); Glucose 160 mg/dL (65-115); Osmolality Calculated 299 mOsm/kg (285-295); Sodium 140 mmol/L (136-145); Total Bilirubin 0.4 mg/dL (0.15-1.2)
[2021-03-06] MEDS: vancomycin 1,500 MG/300 ML PIGGYBACK 200 MG IV (13:25)
[2021-03-06 13:39] LABS: Add Urine Microscopic? YES; Bilirubin Urine Neg (Negative); Blood Urine 3+ (Negative); Glucose Urine UA Norm (Normal); Ketones Urine Negative (Negative); Leukocyte Esterase Urine 2+ (Negative); Nitrate Urine Negative (Negative); Protein Urine 2+ (Negative); Specific Gravity, Urine 1.025 (1.005-1.030); Urine Appearance Hazy (CLEAR); Urine Color Dark Yellow (Yellow); Urobilinogen Urine Norm (Negative); pH Urine 5 (5-7)
[2021-03-06 13:40] LABS: WBC Urine >100 /hpf (0-5)
--- NOTE | 2021-03-06 13:40 | PC.NURSE ---
sticky discharge of the right eye noted, right eye periorbital edema noted.
[2021-03-06 13:41] LABS: Add Urine Culture? Yes; Bacteria Urine 3+ /hpf
--- NOTE | 2021-03-06 13:41 | ECG_ITS ---
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 Measurements Intervals [place] Rate: 105 P: 58 MS: 124 QRS: 41 QRSD: 94 T: 54 QT: 328 QTc: 435 Interpretive Statements SINUS TACHYCARDIA POSSIBLE LEFT ATRIAL ENLARGEMENT [-0.1mV P WAVE IN V1/V2] ABNORMAL RHYTHM ECG WARNING: DATA QUALITY MAY AFFECT INTERPRETATION Compared to ECG 03/06/2021 12:01:04 Short MS interval no longer present Electronically Signed On 03-06-2021 17:31:11 CDT by Apollo Oneal M.D. [id number]
--- NOTE | 2021-03-06 13:41 | PC.NURSE ---
patient denied any pain at this time
[2021-03-06 13:44] LABS: Anion Gap 19.3 (5-19)
[2021-03-06 13:45] LABS: SARS Covid-2 Antigen Negative (Negative)
[2021-03-06 13:48] LABS: Aspartate Amino Transferase 77 U/L (0-32); Creatine Phosphokinase 2116 U/L (26-192); Potassium 4.3 mmol/L (3.5-5.1)
[2021-03-06] MEDS: iodixanol 320 mg/mL 100mL Btl IV ×2 (14:10→14:11)
[2021-03-06] MEDS: sodium chloride 0.9% 1,000 ML 150 ML IV (14:31)
--- NOTE | 2021-03-06 16:44 | P.HP_ITS ---
Providers/Chief Complaint Primary Care Provider: GUERRERO Stewart Chief Complaint: CONFUSION History of Present Illness Clare Stovall is a 70 year old female with a past medical history of microcytic anemia, history of leukopenia, who presents to [facility] with her son due to concerns for altered mental status. Currently patient is alert to person, place, not to time, she has episodes of drowsiness and lucidity, she do es answers a significant portion of the questions appropriately, but her son is at bedside to fill in the gaps. According to patient, she went to work on Saturday, nothing out of the ordinary, but starting on Saturday, she did not feel well, no cough, no fevers, no nausea, no vomiting or abdominal pain, no chest pain, no diarrhea, no constipation she just was not feeling well. When she did not show up to religion on Saturday, her children were worried, so her other son called her and she was able to fiber picker the phone, she told the family she just was not feeling well, so she wanted some clare fam, and her son was able to bring it to her and leave it out at her front steps but he did not see her. 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 No known sick contacts, she has not received the Covid vaccination, no known exposure to COVID-19. She has been seen recently, she is fairly healthy, no headache, blurry vision, no strokelike symptoms no facial droop, slurring of her speech, she was found with her right eye swollen, on the floor. In the emergency room, she was found to be tachycardic, febrile, requiring 2 L, work-up evidence of sepsis, UTI, some evidence of periorbital cellulitis, poor periorbital swelling, no radiographic evidence of fractures, no intracranial bleed, no acute stroke. Currently patient has no complaints, but she does doze in and out of answering questions. Review of Systems Const: Reports: fatigue; Denies: fever(s), chills or malaise Eyes: Denies: change in vision or blurry vision ENMT: Denies: nasal congestion Card: Denies: chest pain or palpitations Resp: Denies: dyspnea, productive cough, non-productive cough or wheezing GI: Denies: abdominal pain, nausea, vomiting, hematemesis, diarrhea, constipation, hematochezia or melena : Denies: flank pain, dysuria or urinary frequency Musc: Denies: neck pain or back pain Skin/Breast: Denies: rash Neuro: Denies: headache(s), dizziness or vertigo Psych: Denies: anxiety or depression Endo: Denies: polyuria or polydipsia Medications/Allergies Home Medications Medication Instructions Recorded Confirmed Last Taken Type metoprolol tartrate 25 mg tablet 25 mg PO BID 30 Days #60 tab 01/13/20 03/06/21 Unknown Rx aspirin 325 mg PO PRN 03/06/21 03/06/21 Unknown History Allergies Allergy/AdvReac Type Severity Reaction Status Date / Time insect venom Allergy anaphylaxis Verified 11/05/19 13:12 PFSH Acute PFSH: Medical History (Updated 03/06/21 @ 16:52 by Major Damian MD) History of microcytic hypochromic anemia Surgical History (Updated 03/06/21 @ 16:50 by Major Damian MD) History of 3 sections Family History (Updated 03/06/21 @ 16:50 by Major Damian MD) Father Lung cancer Social History (Updated 03/06/21 @ 16:50 by Major Damian MD) Smoking and tobacco status: never smoked Alcohol intake: never Substance/Drug Use: never Vitals/I&O/Wt Last Vital Signs Temp 100.6 F H 03/06/21 12:01 Pulse 115 H 03/06/21 13:28 Resp 24 H 03/06/21 13:28 BP 170/93 03/06/21 13:28 Pulse Ox 98 03/06/21 13:28 Weight last 48 hrs Weight 52.163 kg Physical Exam Const: COMMON NORMALS: no acute distress EXAM LIMITATIONS: altered mental status ORIENTATION/CONSCIOUSNESS: Yes awake, Yes oriented to person and Yes oriented to place; not oriented to time HENMT: COMMON NORMALS: normocephalic HEAD & SCALP: normocephalic OTHER: Has periorbital edema, periorbital swelling, has crusting along the eyelid Eye: COMMON NORMALS: Equal, round and reactive pupils present PUPIL: Yes Equal, round and reactive pupils present Neck/C-Spine: COMMON NORMALS: full ROM THYROID: Thyroid normal Lymph: LYMPHATIC: lymphadenopathy (Cervical) Resp: COMMON NORMALS: normal respiratory effort, No retractions, No use of accessory muscles and clear to auscultation bilaterally AUSCULTATION: clear to auscultation bilaterally Cardio: COMMON NORMALS: regular rate, regular rhythm, S1 normal heart sound present, S2 normal heart sound present, No gallops present (Cardio), No clicks present (Cardio) and No murmurs present (Cardio) RATE: regular rate RHYTHM: regular rhythm HEART SOUNDS: S1 normal heart sound present and S2 normal heart sound present GI: COMMON NORMALS: Normal to inspection, nondistended, normoactive bowel sounds present, Soft to palpation, non-tender and No hepatosplenomegaly present Extremity: COMMON NORMALS: no pedal edema Neuro: COMMON NORMALS: moves all extremities and no focal motor deficits Skin: OTHER: Bilateral lower extremities, scarring from multiple chigger and bee stings Data : 03/06/21 12:30 03/06/21 12:30 Micro: Microbiology 03/06/21 12:30 Blood Culture - Preliminary Blood SPECIMEN COLLECTED A&P Assessment and plan (1) Sepsis: -Currently tachycardic, febrile with temp 100.6, respiratory 24, required 2 L -Has UA evidence of UTI, no radiographic evidence of pyelonephritis or obstructive uropathy -Has clinical evidence of periorbital cellulitis, no evidence of preseptal cellulitis -With acute encephalopathy -With LEIDY, rhabdomyolysis Plan: -Admit to general medical floors -Has received sepsis bolus -Tylenol for fevers -Monitor mentation -Continue gentle IV hydration, avoid fluid overload -Continue broad-spectrum antibiotics vancomycin, Zosyn -Topical erythromycin -Follow blood cultures, urine cultures, urine bacterial antigen -Monitor urine output -We will order Covid PCR -Follow-up pro-Juice, CRP -Full code -Lovenox for DVT prophylaxis Status: Acute (2) Periorbital cellulitis: Status: Acute (3) Acute kidney injury: Status: Acute (4) Acute encephalopathy: Status: Acute (5) Acute UTI: Status: Acute (6) Blunt trauma of face: Status: Acute (7) Cellulitis: Status: Acute (8) Rhabdomyolysis: Status: [facility] Necessity Statement*: Patient requires hospitalization, inpatient, greater than 2 midnights for sepsis, acute encephalopathy secondary to periorbital cellulitis, with UTI Coding Level of Care Code Acute Playground Equipment Erector for [facility] Diagnoses Sepsis A41.9 Periorbital cellulitis L03.213 Acute kidney injury N17.9 Acute encephalopathy G93.40 Acute UTI N39.0 Blunt trauma of face S09.93XA Cellulitis L03.90 Rhabdomyolysis M62.82
[2021-03-06 17:13] LABS: NT Pro B Type Natriuretic Pept 8597 pg/mL (0-125); Procalcitonin 6.44 ng/mL (0-0.5)
[2021-03-06 17:24] LABS: C Reactive Protein 117.8 mg/L (0.0-4.9)
[2021-03-06 17:36] LABS: Lactate (Lactic Acid level) 2.3 mmol/L (0.5-2.2)
--- NOTE | 2021-03-06 17:41 | ECG_ITS ---
[facility] Test Date: 2021-03-06 Pat Name: Clare Stovall Department: Room: Gender: Female Semi Driver: : 1950 Requested By: Jenaro Estevez Order Number: [id number] Matias MD: Apollo Oneal M.D. Measurements Intervals [place] Rate: 131 P: 79 IL: 134 QRS: 52 QRSD: 82 T: 66 QT: 285 QTc: 422 Interpretive Statements SINUS TACHYCARDIA WITH OCCASIONAL VENTRICULAR PREMATURE COMPLEXES Compared to ECG 01/10/2019 20:21:17 Ventricular premature complex(es) now present T-wave abnormality no longer present Electronically Signed On 03-06-2021 17:31:57 CDT by Apollo Oneal M.D. [id number]
[2021-03-06] MEDS: enoxaparin 40 mg/0.4 mL Syringe SUBCUT (17:42)
[2021-03-06] MEDS: erythromycin Op Oint 1 gm 1 APPLIC EYE-RIGHT (17:44)
[2021-03-06] MEDS: pantoprazole 40 mg SDV IVP (17:45)
[2021-03-06 17:49] LABS: Troponin 5 2HR 36.08 ng/L (0-10)
[2021-03-06] MEDS: piperacillin-tazobactam 3.375 GM in sodium chloride 0.9% (plus) 50 ML IV (17:55)
[2021-03-06 20:58] LABS: Troponin 5 6HR 29.98 ng/L (0-10); Troponin 5 6HR Delta 1.98 ng/L (0-12)
[2021-03-07] MEDS: vancomycin 750 MG in sodium chloride 0.9% 250 ML 250 MG IV ×2 (00:10→17:13)
[2021-03-07] MEDS: sodium chloride 0.9% 1,000 ML 150 ML IV ×2 (00:48→11:23)
--- NOTE | 2021-03-07 00:50 | PC.NURSE ---
Patient had several ticks and fleas on her during assessment. Her legs are covered in flea and tick bites. Patient was given a good bath and changed.
[2021-03-07] MEDS: piperacillin-tazobactam 3.375 GM in sodium chloride 0.9% (plus) 50 ML IV ×3 (02:09→18:26)
[2021-03-07 03:40] LABS: Basophils % 0.3 %; Hematocrit 42.8 % (37.0-47.0); Hemoglobin 12.8 g/dL (11.5-15.3); Lymphocytes # 0.5 10^3/uL (0.8-4.8); Lymphocytes % 7.9 %; Mean Corpuscular HGB Conc 29.9 g/dL (30.0-36.0); Mean Platelet Volume 11.8 fL (7.4-10.4); Monocytes # 0.5 10^3/uL (0.2-0.9); Neutrophils # 4.98 10^3/uL (1.8-7.7); Neutrophils % 83.3 %; Nucleated Red Blood Cells % 0 %; Platelet Count 119 10^3/cmm (130-400); Red Blood Count 4.92 10^6/uL (4.1-5.3); Red Cell Distribution Width 15.8 % (12.1-15.1)
[2021-03-07 03:55] VITALS: BP 153/91; PULSE 105; RESP 20; TEMP 36.9; O2SAT 96
[2021-03-07 03:55] LABS: Alanine Aminotransferase 20 U/L (0-33); Albumin Level 2.7 g/dL (3.5-5.2); Alkaline Phosphatase 65 IU/L (35-105); Anion Gap 10.7 (5-19); Aspartate Amino Transferase 79 U/L (0-32); Blood Urea Nitrogen 20 mg/dL (8-23); C Reactive Protein 118.2 mg/L (0.0-4.9); Calcium 9.5 mg/dL (8.5-10.5); Carbon Dioxide 24 mmol/L (22-29); Chloride 109 mmol/L (98-107); Globulin 4.5 g/dL (1.3-4.6); Glucose 104 mg/dL (65-115); Osmolality Calculated 293 mOsm/kg (285-295); Phosphorus 3.1 mg/dL (2.5-4.5); Potassium 3.7 mmol/L (3.5-5.1); Sodium 140 mmol/L (136-145); Total Bilirubin 0.3 mg/dL (0.15-1.2); Total Protein 7.2 g/dL (6.6-8.7)
[2021-03-07 04:08] LABS: Lactate (Lactic Acid level) 1.2 mmol/L (0.5-2.2)
[2021-03-07 04:10] LABS: Creatine Phosphokinase 1521 U/L (26-192)
[2021-03-07 04:15] LABS: Procalcitonin 3.88 ng/mL (0-0.5)
--- NOTE | 2021-03-07 05:49 | PC.NURSE ---
Patient had low grade temp when brought to the floor around 2345 last night. her temp was normal this AM. Patient is incontinent. Patient denies any pain this shift. Patient seems more alert and answering questions better this AM. will continue to monitor.
[2021-03-07 07:15] VITALS: BP 151/85; PULSE 92; RESP 22; TEMP 36.6; O2SAT 96
[2021-03-07 11:08] VITALS: BP 144/87; PULSE 91; RESP 18; TEMP 36.7; O2SAT 97
[2021-03-07] MEDS: erythromycin Op Oint 1 gm 1 APPLIC EYE-RIGHT ×4 (11:22→21:49)
--- NOTE | 2021-03-07 12:06 | PC.NURSE ---
Called patient's son Toni [phone] and Trena [phone] to complete patient's admission assessment.
[2021-03-07 14:13] LABS: Coronavirus Test Green County Not Detected
--- NOTE | 2021-03-07 14:25 | PC.NURSE ---
Notified patient's son Toni that patient is negative for Covid and patient can have visitor now.
--- NOTE | 2021-03-07 14:26 | PC.NURSE ---
notified Dr Wright that patient is negative for covid per sendout.
--- NOTE | 2021-03-07 15:16 | PC.NURSE ---
Leroyvd verbalized order from Dr Wright to discontinue isolation order since patient is negative for covid.
[2021-03-07 15:17] VITALS: BP 145/92; PULSE 87; RESP 18; TEMP 36.4; O2SAT 98
[2021-03-07] MEDS: enoxaparin 40 mg/0.4 mL Syringe SUBCUT (17:14)
[2021-03-07] MEDS: pantoprazole 40 mg SDV IVP (17:29)
--- NOTE | 2021-03-07 17:47 | P.PN_ITS ---
Subjective Subjective: Interval history: Noted to have poor urine output overnight. Bean catheter was placed after which 900 cc was noted. No fever or chills. Medications: Reviewed: Yes Vitals/I&O/Wt Last Vital Signs Temp 97.6 F 03/07/21 15:17 Pulse 87 03/07/21 15:17 Resp 18 03/07/21 15:17 BP 145/92 03/07/21 15:17 Pulse Ox 98 03/07/21 15:17 03/07/21 03/07/21 03/07/21 06:59 14:59 22:59 Intake Total 300 / 3203 1122.5 / 1122.5 50 / 1172.5 Output Total 1800 / 1800 200 / 2000 Balance 300 / 3203 -677.5 / -677.5 -150 / -827.5 Weight last 48 hrs Weight 52.163 kg Physical Exam Const: COMMON NORMALS: no acute distress EXAM LIMITATIONS: altered mental status ORIENTATION/CONSCIOUSNESS: Yes awake, Yes oriented to person and Yes oriented to place; not oriented to time HENMT: COMMON NORMALS: normocephalic HEAD & SCALP: normocephalic OTHER: Has periorbital edema, periorbital swelling, has crusting along the eyelid Eye: COMMON NORMALS: Equal, round and reactive pupils present PUPIL: Yes Equal, round and reactive pupils present Neck/C-Spine: COMMON NORMALS: full ROM and Thyroid normal THYROID: Thyroid normal Lymph: LYMPHATIC: lymphadenopathy (Cervical) Resp: COMMON NORMALS: normal respiratory effort, No retractions, No use of acc essory muscles and clear to auscultation bilaterally AUSCULTATION: clear to auscultation bilaterally Cardio: COMMON NORMALS: regular rate, regular rhythm, S1 normal heart sound present, S2 normal heart sound present, No gallops present (Cardio), No clicks present (Cardio) and No murmurs present (Cardio) RATE: regular rate RHYTHM: regular rhythm HEART SOUNDS: S1 normal heart sound present and S2 normal heart sound present GI: COMMON NORMALS: Normal to inspection, nondistended, normoactive bowel sounds present, Soft to palpation, non-tender and No hepatosplenomegaly present PALPATION: Yes Soft to palpation and Yes No hepatosplenomegaly present Extremity: COMMON NORMALS: no pedal edema Neuro: COMMON NORMALS: moves all extremities and no focal motor deficits SENSORIUM/ORIENTATION: Yes oriented to person, Yes oriented to place and No oriented to time Skin: OTHER: Bilateral lower extremities, scarring from multiple chigger and b ee stings Urinary Catheter Management^: Bean: Cath Placed During This Visit: yes Reason for Continuing Indwelling Catheter: Acute Urinary Retention or Obstruction Urinary Catheter Date of Insertion: 03/07/21 Urinary Catheter Time of Insertion: 11:32 Data : 03/07/21 03:13 03/07/21 03:13 Micro: Microbiology 03/06/21 16:51 Blood Culture - Preliminary Blood NEGATIVE TO DATE 03/07/21 11:14 Bacterial Antigens - Final Urine,Clean Catch 03/06/21 12:30 Blood Culture - Preliminary Blood NEGATIVE TO DATE 03/06/21 12:30 Urine Culture - Preliminary Urine,Clean Catch Gram Negative Rods A&P Assessment and plan (1) Sepsis: -Currently tachycardic, febrile with temp 100.6, respiratory 24, required 2 L -Has UA evidence of UTI, no radiographic evidence of pyelonephritis or obst ructive uropathy -Has clinical evidence of periorbital cellulitis, no evidence of preseptal cellulitis -With acute encephalopathy -With LEIDY, rhabdomyolysis Plan: Continue antibiotics as currently ordered Follow-up on cultures Repeat labs in a.m. COVID-19 negative Status: Acute (2) Periorbital cellulitis: Status: Acute (3) Acute kidney injury: Status: Acute (4) Acute encephalopathy: Status: Acute (5) Acute UTI: Status: Acute (6) Blunt trauma of face: Status: Acute (7) Cellulitis: Status: Acute (8) Rhabdomyolysis: Status: Acute Additional A&P Information -Lovenox for DVT prophylaxis Attestations Medical Necessity Statement*: Will require further hospitalization for management of sepsis requiring IV antibiotics Time Spent in Patient Care: Greater than 35 minutes (>than 50% of time spent in counselling and/or direct pt care on unit) . Coding Level of Care Code Acute Long Distance Billing Operator for [facility] Fwd Diagnoses Sepsis A41.9 Periorbital cellulitis L03.213 Acute kidney injury N17.9 Acute encephalopathy G93.40 Acute UTI N39.0 Blunt trauma of face S09.93XA Cellulitis L03.90 Rhabdomyolysis M62.82
[2021-03-07 20:00] VITALS: BP 162/85; PULSE 81; RESP 16; TEMP 36.4; O2SAT 96
[2021-03-07 23:54] VITALS: BP 157/84; PULSE 79; RESP 18; TEMP 36.8; O2SAT 100
[2021-03-08] MEDS: piperacillin-tazobactam 3.375 GM in sodium chloride 0.9% (plus) 50 ML IV ×3 (01:06→16:47)
[2021-03-08] MEDS: acetaminophen 325 mg Tablet 650 MG PO ×2 (02:51→09:30)
[2021-03-08 04:00] VITALS: BP 152/83; PULSE 81; RESP 18; TEMP 37; O2SAT 95
[2021-03-08 04:15] LABS: Basophils % 0.3 %; Hematocrit 35.1 % (37.0-47.0); Hemoglobin 10.4 g/dL (11.5-15.3); Lymphocytes # 0.6 10^3/uL (0.8-4.8); Lymphocytes % 15.2 %; Mean Corpuscular HGB Conc 29.6 g/dL (30.0-36.0); Mean Corpuscular Hemoglobin 26.1 pg (28.0-34.0); Mean Platelet Volume 12.1 fL (7.4-10.4); Monocytes # 0.5 10^3/uL (0.2-0.9); Monocytes % 12.4 %; Neutrophils # 2.85 10^3/uL (1.8-7.7); Neutrophils % 71.8 %; Nucleated Red Blood Cells % 0 %; Platelet Count 109 10^3/cmm (130-400); Red Blood Count 3.99 10^6/uL (4.1-5.3); Red Cell Distribution Width 15.7 % (12.1-15.1)
[2021-03-08 04:34] LABS: Alanine Aminotransferase 17 U/L (0-33); Albumin Level 2.5 g/dL (3.5-5.2); Alkaline Phosphatase 49 IU/L (35-105); Anion Gap 8.4 (5-19); Aspartate Amino Transferase 59 U/L (0-32); Blood Urea Nitrogen 18 mg/dL (8-23); C Reactive Protein 62.4 mg/L (0.0-4.9); Calcium 9.2 mg/dL (8.5-10.5); Carbon Dioxide 24 mmol/L (22-29); Chloride 114 mmol/L (98-107); Globulin 3.2 g/dL (1.3-4.6); Glucose 97 mg/dL (65-115); Osmolality Calculated 298 mOsm/kg (285-295); Phosphorus 1.9 mg/dL (2.5-4.5); Potassium 3.4 mmol/L (3.5-5.1); Sodium 143 mmol/L (136-145); Total Bilirubin 0.2 mg/dL (0.15-1.2); Total Protein 5.7 g/dL (6.6-8.7)
[2021-03-08 05:24] LABS: Procalcitonin 2.46 ng/mL (0-0.5)
[2021-03-08 05:26] LABS: Creatine Phosphokinase 460 U/L (26-192)
[2021-03-08] MEDS: erythromycin Op Oint 1 gm 1 APPLIC EYE-RIGHT ×4 (07:48→21:26)
[2021-03-08 08:04] VITALS: BP 163/85; PULSE 78; RESP 16; TEMP 36.5; O2SAT 96
--- NOTE | 2021-03-08 11:51 | PC.CHAP ---
Pastoral Care Encounter/Spiritual Assessment Type of Contact [] Declined engineering documentation specialist visit [] Patient/Family/Request visit [] Outpatient visit [] Follow-up visit [] Physician referral [] Code/Alert [x] Routine visit [] Staff referral [] Actively dying [] Patient sleeping [] Family support [] [x] Out of room [] Palliative care [] [] Receiving care in room [] Pre-surgical visit [] Trauma [] Long length of stay [] ICU visit [] Other: Relational/Emotional Strength [] Patient feels connected with others/family/visitors/staff [] Distress [] Loneliness/isolation [] Abandonment Spirituality of Patient [] Person of Zulma [] Attends Confucianism of their Zulma [] Believes in Prayer [] Reads Bible or Roman Catholic materials [] There are Spiritual issues to be addressed Structural Manager Interventions [] Prayer [] Active listening [] Non-anxious presence [] Spiritual/emotional support [] Crisis/trauma care [] Spiritual counseling [] Bereavement support [] Provided bereavement packet [] Provided Bible/devotional materials [] Provided toy/stuffed animal, coloring book to patient or family member [] Provided Communion [] Anointing/[place] [] Salvation [] Completed spiritual assessment [] Other: Impact on Illness or Injury [] Angry [] Fearful [] Anxious [] Often cries [] Exhaustion [] Unable to work [] Unable to attend zoroastrian [] Unable to walk/stand [] Unable to read [] Unable to drive [] Unable to eat/drink [] Unable to sleep [] Unable to be with family [] Patient intubated [] Other: Summary Time spent with patient
[2021-03-08 12:00] VITALS: BP 144/88; PULSE 82; RESP 16; TEMP 36.7; O2SAT 98
[2021-03-08 16:00] VITALS: BP 148/92; PULSE 89; RESP 16; TEMP 36.8; O2SAT 98
[2021-03-08] MEDS: enoxaparin 40 mg/0.4 mL Syringe SUBCUT (16:47)
[2021-03-08] MEDS: pantoprazole 40 mg SDV IVP (16:47)
[2021-03-08] MEDS: vancomycin 750 MG in sodium chloride 0.9% 250 ML 250 MG IV (17:46)
--- NOTE | 2021-03-08 17:53 | P.PN_ITS ---
Subjective Subjective: Interval history: Patient was feeling better today. denied any pain with ocular movement. no fever, chills, nausea or vomiting. Noted improvement in overall Medications: Reviewed: Yes Vitals/I&O/Wt Last Vital Signs Temp 98.2 F 03/08/21 16:00 Pulse 89 03/08/21 16:00 Resp 16 03/08/21 16:00 BP 148/92 03/08/21 16:00 Pulse Ox 98 03/08/21 16:00 03/08/21 03/08/21 03/08/21 06:59 14:59 22:59 Intake Total 50 / 2520.0 770 / 770 Output Total 300 / 2300 Balance -250 / 220.0 770 / 770 - 769 Physical Exam Const: COMMON NORMALS: no acute distress EXAM LIMITATIONS: altered mental status ORIENTATION/CONSCIOUSNESS: Yes awake, Yes oriented to person and Yes oriented to place; not oriented to time HENMT: COMMON NORMALS: normocephalic HEAD & SCALP: normocephalic OTHER: Has periorbital edema, periorbital swelling, has crusting along the eyelid - conjuntical injection Eye: COMMON NORMALS: Equal, round and reactive pupils present PUPIL: Yes Equal, round and reactive pupils present Neck/C-Spine: COMMON NORMALS: full ROM and Thyroid normal THYROID: Thyroid normal Lymph: LYMPHATIC: lymphadenopathy (Cervical) Resp: COMMON NORMALS: normal respiratory effort, No retractions, No use of accessory muscles and clear to auscultation bilaterally AUSCULTATION: clear to auscultation bilaterally Cardio: COMMON NORMALS: regular rate, regular rhythm, S1 normal heart sound present, S2 normal heart sound present, No gallops present (Cardio), No clicks present (Cardio) and No murmurs present (Cardio) RATE: regular rate RHYTHM: regular rhythm HEART SOUNDS: S1 normal heart sound present and S2 normal heart sound present GI: COMMON NORMALS: Normal to inspection, nondistended, normoactive bowel sounds present, Soft to palpation, non-tender and No hepatosplenomegaly present PALPATION: Yes Soft to palpation and Yes No hepatosplenomegaly present Extremity: COMMON NORMALS: no pedal edema Neuro: COMMON NORMALS: moves all extremities and no focal motor deficits SENSORIUM/ORIENTATION: Yes oriented to person, Yes oriented to place and No oriented to time Skin: OTHER: Bilateral lower extremities, scarring from multiple chigger and bee stings Urinary Catheter Management^: Bean: Cath Placed During This Visit: yes Reason for Continuing Indwelling Catheter: Acute Urinary Retention or Obstruction Urinary Catheter Date of Insertion: 03/07/21 Urinary Catheter Time of Insertion: 11:32 Data : 03/08/21 03:52 03/08/21 03:52 Micro: Microbiology 03/06/21 16:51 Blood Culture - Preliminary Blood NEGATIVE TO DATE 03/07/21 11:14 Bacterial Antigens - Final Urine,Clean Catch A&P Assessment and plan (1) Sepsis: -Currently tachycardic, febrile with temp 100.6, respiratory 24, required 2 L -Has UA evidence of UTI, no radiographic evidence of pyelonephritis or obstructive uropathy -Has clinical evidence of periorbital cellulitis on admission per prior physician notes. - Currently appears to have conjunctival injection. No orbital proptosis. pain with EOM or visual field deficits. -With acute encephalopathy which has resolved -With LEIDY, rhabdomyolysis Plan: De-escalate abx Culture - no growth to date Repeat labs in a.m. COVID-19 negative Status: Acute (2) Periorbital cellulitis: Status: Acute (3) Acute kidney injury: Resolved. Status: Acute (4) Acute encephalopathy: Resolved Status: Acute (5) Acute UTI: culture showed gram negative Follow up on final organism Status: Acute (6) Blunt trauma of face: Status: Acute (7) Cellulitis: Status: Acute (8) Rhabdomyolysis: Improving. Status: Acute (9) Conjunctivitis: will add abx drops Status: Acute Additional A&P Information -Lovenox for DVT prophylaxis - Monitor platelets - if further drop will stop. bleeding precautions Attestations Medical Necessity Statement*: Continue hospitalization for management of sepsis, UTI, conjunctivitits. Time Spent in Patient Care: Greater than 35 minutes (>than 50% of time spent in counselling and/or direct pt care on unit) . Coding Level of Care Code Acute Community Associate for [facility] Fw Diagnoses Sepsis A41.9 Periorbital cellulitis L03.213 Acute kidney injury N17.9 Acute encephalopathy G93.40 Acute UTI N39.0 Blunt trauma of face S09.93XA Cellulitis L03.90 Rhabdomyolysis M62.82 Conjunctivitis H10.9
[2021-03-08 19:51] VITALS: BP 160/82; PULSE 95; RESP 18; TEMP 36.4; O2SAT 90
[2021-03-08 23:39] VITALS: BP 183/98; PULSE 97; RESP 16; TEMP 36.8; O2SAT 97
[2021-03-09] VITALS (7 sets, daily range): BP systolic 165–185; BP diastolic 90–115; PULSE 89–110; RESP 16–19; TEMP 36.8–38; O2SAT 95–97
[2021-03-09 03:37] LABS: Eosinophils % 0.2 %; Hematocrit 36.5 % (37.0-47.0); Hemoglobin 11.1 g/dL (11.5-15.3); Lymphocytes # 0.6 10^3/uL (0.8-4.8); Lymphocytes % 12.6 %; Mean Corpuscular HGB Conc 30.4 g/dL (30.0-36.0); Mean Corpuscular Hemoglobin 25.8 pg (28.0-34.0); Mean Corpuscular Volume 84.7 fL (81-99); Mean Platelet Volume 11.9 fL (7.4-10.4); Monocytes # 0.4 10^3/uL (0.2-0.9); Monocytes % 9.5 %; Neutrophils # 3.42 10^3/uL (1.8-7.7); Neutrophils % 77.2 %; Nucleated Red Blood Cells % 0 %; Platelet Count 128 10^3/cmm (130-400); Red Blood Count 4.31 10^6/uL (4.1-5.3); Red Cell Distribution Width 15.2 % (12.1-15.1); White Blood Count 4.4 10^3/uL (4.0-10.0)
[2021-03-09 03:51] LABS: Lactate (Lactic Acid level) 0.7 mmol/L (0.5-2.2)
[2021-03-09 03:55] LABS: Alanine Aminotransferase 18 U/L (0-33); Albumin Level 2.5 g/dL (3.5-5.2); Alkaline Phosphatase 60 IU/L (35-105); Anion Gap 9.1 (5-19); Aspartate Amino Transferase 51 U/L (0-32); Blood Urea Nitrogen 11 mg/dL (8-23); C Reactive Protein 52.4 mg/L (0.0-4.9); Carbon Dioxide 25 mmol/L (22-29); Chloride 108 mmol/L (98-107); Globulin 3.5 g/dL (1.3-4.6); Glucose 101 mg/dL (65-115); Magnesium 1.8 mg/dL (1.7-2.3); Osmolality Calculated 288 mOsm/kg (285-295); Phosphorus 1.5 mg/dL (2.5-4.5); Potassium 3.1 mmol/L (3.5-5.1); Sodium 139 mmol/L (136-145); Total Bilirubin 0.2 mg/dL (0.15-1.2)
[2021-03-09] MEDS: piperacillin-tazobactam 3.375 GM in sodium chloride 0.9% (plus) 50 ML IV ×3 (03:55→21:02)
[2021-03-09 04:03] LABS: Procalcitonin 1.29 ng/mL (0-0.5)
[2021-03-09 04:14] LABS: Creatine Phosphokinase 165 U/L (26-192)
[2021-03-09] MEDS: erythromycin Op Oint 1 gm 1 APPLIC EYE-RIGHT ×4 (10:05→21:03)
--- NOTE | 2021-03-09 10:31 | PC.OT ---
Occupational therapy attempted multiple times, patient very fatigued today, sleeping sitting in chair. Will attempt again tomorrow.
--- NOTE | 2021-03-09 10:58 | PC.CHAP ---
Pastoral Care Encounter/Spiritual Assessment Type of Contact [] Declined caramel coloring operator visit [] Patient/Family/Request visit [] Outpatient visit [] Follow-up visit [] Physician referral [] Code/Alert [x] Routine visit [] Staff referral [] Actively dying [] Patient sleeping [] Family support [] [] Out of room [] Palliative care [] [x] Receiving care in room [] Pre-surgical visit [] Trauma [x] Long length of stay [] ICU visit [x] Other: confusion Relational/Emotional Strength [x] Patient feels connected with others/family/visitors/staff [x] Distress [] Loneliness/isolation [] Abandonment Spirituality of Patient [x] Person of Zulma [] Attends Restorationism of their Zulma [x] Believes in Prayer [] Reads Bible or Cheondoism materials [] There are Spiritual issues to be addressed Religious Leader Interventions [x] Prayer [x] Active listening [x] Non-anxious presence [x] Spiritual/emotional support [] Crisis/trauma care [x] Spiritual counseling [] Bereavement support [] Provided bereavement packet [] Provided Bible/devotional materials [] Provided toy/stuffed animal, coloring book to patient or family member [] Provided Communion [] Anointing/[place] [] Salvation [x] Completed spiritual assessment [] Other: Impact on Illness or Injury [] Angry [x] Fearful [] Anxious [] Often cries [] Exhaustion [x] Unable to work [] Unable to attend orthodox [] Unable to walk/stand [] Unable to read [] Unable to drive [] Unable to eat/drink [] Unable to sleep [] Unable to be with family [] Patient intubated [] Other: Summary confusion doesn't about her or what needs to be done at this point has negative attitude about when she will able to go home Time spent with patient 10 mins
--- NOTE | 2021-03-09 11:24 | PC.SOCIAL ---
IMM Update IMM updated with patient. Verbalized an understanding. Copy Pg. 2 provided. Initialed, dated, timed, and placed in chart.
--- NOTE | 2021-03-09 17:06 | PM.PN ---
Subjective Subjective: Interval history: patient was continue to improve. No new clinical events overnight. Throughout the day she was noted to be hypertensive and tachycardic. Restarted on her home beta blockers. Denies chest pain or shortness of breath. Medications: Reviewed: Yes Vitals/I&O/Wt Last Vital Signs Temp 98.9 F 03/09/21 15:33 Pulse 109 H 03/09/21 15:33 Resp 16 03/09/21 15:33 BP 165/109 03/09/21 15:33 Pulse Ox 97 03/09/21 15:33 03/09/21 03/09/21 03/09/21 06:59 14:59 22:59 Intake Total 250 / 1670 170 / 170 50 / 220 Output Total 1850 / 1850 300 / 2150 Balance 250 / 1669 -1680 / -1680 -250 / -1930 Physical Exam Const: COMMON NORMALS: no acute distress EXAM LIMITATIONS: altered mental status ORIENTATION/CONSCIOUSNESS: Yes awake, Yes oriented to person and Yes oriented to place; not oriented to time HENMT: COMMON NORMALS: normocephalic HEAD & SCALP: normocephalic OTHER: Has periorbital edema, periorbital swelling, has crusting along the eyelid - conjuntical injection Eye: COMMON NORMALS: Equal, round and reactive pupils present PUPIL: Yes Equal, round and reactive pupils present Neck/C-Spine: COMMON NORMALS: full ROM and Thyroid normal THYROID: Thyroid normal Lymph: LYMPHATIC: lymphadenopathy (Cervical) Resp: COMMON NORMALS: normal respiratory effort, No retractions, No use of accessory muscles and clear to auscultation bilaterally AUSCULTATION: clear to auscultation bilaterally Cardio: COMMON NORMALS: regular rate, regular rhythm, S1 normal heart sound present, S2 normal heart sound present, No gallops present (Cardio), No clicks present (Cardio) and No murmurs present (Cardio) RATE: regular rate RHYTHM: regular rhythm HEART SOUNDS: S1 normal heart sound present and S2 normal heart sound present GI: COMMON NORMALS: Normal to inspection, nondistended, normoactive bowel sounds present, Soft to palpation, non-tender and No hepatosplenomegaly present PALPATION: Yes Soft to palpation and Yes No hepatosplenomegaly present Extremity: COMMON NORMALS: no pedal edema Neuro: COMMON NORMALS: moves all extremities and no focal motor deficits SENSORIUM/ORIENTATION: Yes oriented to person, Yes oriented to place and No oriented to time Skin: OTHER: Bilateral lower extremities, scarring from multiple chigger and bee stings Urinary Catheter Management^: Bean: Cath Placed During This Visit: yes, but has since been removed by the nurse Reason for Continuing Indwelling Catheter: Decision to DC Catheter Urinary Catheter Date of Insertion: 03/07/21 Urinary Catheter Time of Insertion: 11:32 Date Urinary Catheter Removed: 03/09/21 Time Urinary Catheter Discontinued: 11:44 Data : 03/09/21 02:56 03/09/21 02:56 Micro: Microbiology 03/06/21 12:30 Urine Culture - Final Urine,Clean Catch Escherichia coli A&P Assessment and plan (1) Sepsis: -Currently tachycardic, febrile with temp 100.6, respiratory 24, required 2 L -Has UA evidence of UTI, no radiographic evidence of pyelonephritis or obstructive uropathy -Has clinical evidence of periorbital cellulitis on admission per prior physician notes. - Currently appears to have conjunctival injection. No orbital proptosis. pain with EOM or visual field deficits. -With acute encephalopathy which has resolved -With LEIDY, rhabdomyolysis Plan: Will plan to discharge on oral antibiotics tomorrow Status: Acute (2) Periorbital cellulitis: Status: Acute (3) Acute kidney injury: Resolved. Status: Acute (4) Acute encephalopathy: Resolved Status: Acute (5) Acute UTI: culture showed gram negative Follow up on final organism Follow-up on susceptibilities Status: Acute (6) Blunt trauma of face: Status: Acute (7) Cellulitis: Status: Acute (8) Rhabdomyolysis: Improving. Status: Acute (9) Conjunctivitis: continue erythromycin ointment Status: Acute Additional A&P Information -Lovenox for DVT prophylaxis - Monitor platelets - if further drop will stop. bleeding precautions Attestations Medical Necessity Statement*: will require further hospitalization for IV antibiotics Time Spent in Patient Care: Greater than 35 minutes (>than 50% of time spent in counselling and/or direct pt care on unit). 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
[2021-03-09] MEDS: pantoprazole 40 mg SDV IVP (17:30)
[2021-03-09] MEDS: sodium chloride 0.9% (100 ml) 100 ML 50 ML (17:30)
[2021-03-09] MEDS: enoxaparin 40 mg/0.4 mL Syringe SUBCUT (17:30)
[2021-03-09] MEDS: metoprolol tartrate 25 mg Tablet PO (17:30)
[2021-03-10] VITALS (9 sets, daily range): BP systolic 136–176; BP diastolic 77–94; PULSE 60–93; RESP 16–18; TEMP 36.3–38.1; O2SAT 94–97
[2021-03-10] MEDS: acetaminophen 325 mg Tablet 650 MG PO ×2 (00:46→20:52)
[2021-03-10] MEDS: piperacillin-tazobactam 3.375 GM in sodium chloride 0.9% (plus) 50 ML IV ×3 (04:21→19:37)
[2021-03-10 05:26] LABS: Basophils % 0.3 %; Eosinophils % 0.3 %; Hematocrit 35.4 % (37.0-47.0); Hemoglobin 10.9 g/dL (11.5-15.3); Lymphocytes # 0.8 10^3/uL (0.8-4.8); Lymphocytes % 20.9 %; Mean Corpuscular HGB Conc 30.8 g/dL (30.0-36.0); Mean Corpuscular Hemoglobin 26.5 pg (28.0-34.0); Mean Corpuscular Volume 85.9 fL (81-99); Mean Platelet Volume 11.1 fL (7.4-10.4); Monocytes # 0.5 10^3/uL (0.2-0.9); Monocytes % 12.6 %; Neutrophils # 2.54 10^3/uL (1.8-7.7); Neutrophils % 65.4 %; Nucleated Red Blood Cells % 0 %; Platelet Count 144 10^3/cmm (130-400); Red Blood Count 4.12 10^6/uL (4.1-5.3); Red Cell Distribution Width 15.3 % (12.1-15.1); White Blood Count 3.9 10^3/uL (4.0-10.0)
[2021-03-10 06:08] LABS: Alanine Aminotransferase 16 U/L (0-33); Albumin Level 2.4 g/dL (3.5-5.2); Alkaline Phosphatase 55 IU/L (35-105); Aspartate Amino Transferase 40 U/L (0-32); Blood Urea Nitrogen 12 mg/dL (8-23); Carbon Dioxide 28 mmol/L (22-29); Chloride 104 mmol/L (98-107); Globulin 3.4 g/dL (1.3-4.6); Glucose 88 mg/dL (65-115); Osmolality Calculated 287 mOsm/kg (285-295); Sodium 139 mmol/L (136-145); Total Bilirubin 0.3 mg/dL (0.15-1.2); Total Protein 5.8 g/dL (6.6-8.7)
[2021-03-10 07:35] LABS: Slide Review Slide Review Perform
[2021-03-10] MEDS: metoprolol tartrate 25 mg Tablet PO ×2 (10:28→17:15)
[2021-03-10] MEDS: erythromycin Op Oint 1 gm 1 APPLIC EYE-RIGHT ×4 (10:28→19:37)
--- NOTE | 2021-03-10 11:44 | P.PN_ITS ---
Subjective Subjective: Interval history: Fever Medications: Reviewed: Yes Vitals/I&O/Wt Last Vital Signs Temp 100.5 F H 03/10/21 20:00 Pulse 73 03/10/21 20:00 Resp 18 03/10/21 20:00 BP 136/85 03/10/21 20:00 Pulse Ox 96 03/10/21 20:00 03/10/21 03/10/21 03/11/21 14:59 22:59 06:59 Intake Total 410 / 410 290 / 700 Output Total 0 / 0 Balance 410 / 410 290 / 700 Physical Exam Const: COMMON NORMALS: no acute distress EXAM LIMITATIONS: altered mental status ORIENTATION/CONSCIOUSNESS: Yes awake, Yes oriented to person and Yes oriented to place; not oriented to time HENMT: COMMON NORMALS: normocephalic HEAD & SCALP: normocephalic OTHER: Has periorbital edema, periorbital swelling, has crusting along the eyelid - co njuntical injection Eye: COMMON NORMALS: Equal, round and reactive pupils present PUPIL: Yes Equal, round and reactive pupils present Neck/C-Spine: COMMON NORMALS: full ROM and Thyroid normal THYROID: Thyroid normal Lymph: LYMPHATIC: lymphadenopathy (Cervical) Resp: COMMON NORMALS: normal respiratory effort, No retractions, No use of accessory muscles and clear to auscultation bilaterally AUSCULTATION: clear to auscultation bilaterally Cardio: COMMON NORMALS: regular rate, regular rhythm, S1 normal heart sound present, S2 normal heart sound present, No gallops present (Cardio), No clicks present (Cardio) and No murmurs present (Cardio) RATE: regular rate RHYTHM: regular rhythm HEART SOUNDS: S1 normal heart sound present and S2 normal heart sound present GI: COMMON NORMALS: Normal to inspection, nondistended, normoactive bowel sounds present, Soft to palpation, non-tender and No hepatosplenomegaly present PALPATION: Yes Soft to palpation and Yes No hepatosplenomegaly present Extremity: COMMON NORMALS: no pedal edema Neuro: COMMON NORMALS: moves all extremities and no focal motor deficits SENSORIUM/ORIENTATION: Yes oriented to person, Yes oriented to place and No oriented to time Skin: OTHER: Bilateral lower extremities, scarring from multiple chigger and bee stings Urinary Catheter Management^: Bean: Cath Placed During This Visit: yes, but has since been removed by the nurse Reason for Continuing Indwelling Catheter: Decision to DC Catheter Urinary Catheter Date of Insertion: 03/07/21 Urinary Catheter Time of Insertion: 11:32 Date Urinary Catheter Removed: 03/09/21 Time Urinary Catheter Discontinued: 11:44 Data : 03/10/21 05:00 03/10/21 05:00 A&P Assessment and plan (1) Sepsis: -Currently tachycardic, febrile with temp 100.6, respiratory 24, required 2 L -Has UA evidence of UTI, no radiographic evidence of pyelonephritis or obstructive uropathy -Has clinical evidence of periorbital cellulitis on admission per prior physician notes. - Currently appears to have conjunctival injection. No orbital proptosis. pain with EOM or visual field deficits. -With acute encephalopathy which has resolved -With LEIDY, rhabdomyolysis Plan: Will plan to discharge on oral antibiotics tomorrow Status: Acute (2) Periorbital cellulitis: Status: Acute (3) Acute kidney injury: Resolved. Status: Acute (4) Acute encephalopathy: Resolved Status: Acute (5) Acute UTI: culture showed gram negative Follow up on final organism Follow-up on susceptibilities Status: Acute (6) Blunt trauma of face: Status: Acute (7) Cellulitis: Status: Acute (8) Rhabdomyolysis: Improving. Status: Acute (9) Conjunctivitis: continue erythromycin ointment Status: Acute Additional A&P Information -Lovenox for DVT prophylaxis - Monitor platelets - if further drop will stop. bleeding precautions Attestations Medical Necessity Statement*: Will continue hospitalization for managment of infectious process Time Spent in Patient Care: Greater than 35 minutes (>than 50% of time spent in counselling and/or direct pt care on unit) . 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
[2021-03-10] MEDS: pantoprazole 40 mg SDV IVP (17:15)
[2021-03-10] MEDS: enoxaparin 40 mg/0.4 mL Syringe SUBCUT (17:15)
--- NOTE | 2021-03-10 17:57 | PC.NURSE ---
Shift Note Frequent safety and comfort rounds continue. Orders and/or nursing care completed as indicated. Patient monitored for response to intervention and treatment(s). Education provided includes using walker when ambulating. Patient verbalized understanding and demonstrated proper use of the walker. patient is currently sitting in bedside chair. Will continue to monitor.
[2021-03-11 04:00] VITALS: BP 143/81; PULSE 61; RESP 16; TEMP 36.6; O2SAT 98
[2021-03-11] MEDS: piperacillin-tazobactam 3.375 GM in sodium chloride 0.9% (plus) 50 ML IV ×2 (04:40→11:31)
--- NOTE | 2021-03-11 05:37 | PC.NURSE ---
Shift Note Frequent safety and comfort rounds continue. Orders and/or nursing care completed as indicated. Patient monitored for response to intervention and treatment(s). Education provided includes[DISCHARGE PLANS, MEDICATIONS, SAFETY, AND SKIN CARE]. Patient and/or loan representative SHOWED WILLINGNESS TO LEARN, ASK QUESTIONS, AND VERBALIZED UNDERSTANDING. Will continue to monitor.
[2021-03-11 07:49] VITALS: BP 157/81; PULSE 73; RESP 16; TEMP 37.4; O2SAT 97
[2021-03-11 08:00] VITALS: BP 157/81; PULSE 73; RESP 16; TEMP 37.4
[2021-03-11] MEDS: metoprolol tartrate 25 mg Tablet PO (08:36)
[2021-03-11] MEDS: erythromycin Op Oint 1 gm 1 APPLIC EYE-RIGHT (08:37)
--- NOTE | 2021-03-11 09:56 | PC.SOCIAL ---
IMM Updated Updated pt on Pg 2 IMM. No questions voiced. Provided pt a copy. Initialed, dated, & timed copy in chart.
[2021-03-11 11:19] VITALS: BP 142/79; PULSE 81; RESP 17; TEMP 37.1; O2SAT 94
--- NOTE | 2021-03-11 12:23 | PC.NURSE ---
Pt discharged 03/11/21 1219. all questions and concerns answered. pt discharged to son. escorted in a wheelchair by claims customer service representative to vehicle
--- NOTE | 2021-03-11 13:32 | PM.PN ---
Subjective Subjective: Interval history: Patient overall improved significantly. She was however having intermittent episodes of fever. Temperature ranging up to 100.5. Has fever on 13. Noted significant improvement in right eye. Medications: Reviewed: Yes Vitals/I&O/Wt Last Vital Signs Temp 98.8 F 03/11/21 11:19 Pulse 81 03/11/21 11:19 Resp 17 03/11/21 11:19 BP 142/79 03/11/21 11:19 Pulse Ox 94 03/11/21 11:19 03/10/21 03/11/21 03/11/21 22:59 06:59 14:59 Intake Total 290 / 700 50 / 750 420.833 / 420.833 Output Total 0 / 0 Balance 290 / 700 50 / 750 420.833 / 420.833 Physical Exam Const: COMMON NORMALS: no acute distress EXAM LIMITATIONS: altered mental status ORIENTATION/CONSCIOUSNESS: Yes awake, Yes oriented to person and Yes oriented to place; not oriented to time HENMT: COMMON NORMALS: normocephalic HEAD & SCALP: normocephalic OTHER: Has periorbital edema, periorbital swelling, has crusting along the eyelid - conjuntical injection Eye: COMMON NORMALS: Equal, round and reactive pupils present PUPIL: Yes Equal, round and reactive pupils present Neck/C-Spine: COMMON NORMALS: full ROM and Thyroid normal THYROID: Thyroid normal Lymph: LYMPHATIC: lymphadenopathy (Cervical) Resp: COMMON NORMALS: normal respiratory effort, No retractions, No use of accessory muscles and clear to auscultation bilaterally AUSCULTATION: clear to auscultation bilaterally Cardio: COMMON NORMALS: regular rate, regular rhythm, S1 normal heart sound present, S2 normal heart sound present, No gallops present (Cardio), No clicks present (Cardio) and No murmurs present (Cardio) RATE: regular rate RHYTHM: regular rhythm HEART SOUNDS: S1 normal heart sound present and S2 normal heart sound present GI: COMMON NORMALS: Normal to inspection, nondistended, normoactive bowel sounds present, Soft to palpation, non-tender and No hepatosplenomegaly present PALPATION: Yes Soft to palpation and Yes No hepatosplenomegaly present Extremity: COMMON NORMALS: no pedal edema Neuro: COMMON NORMALS: moves all extremities and no focal motor deficits SENSORIUM/ORIENTATION: Yes oriented to person, Yes oriented to place and No oriented to time Skin: OTHER: Bilateral lower extremities, scarring from multiple chigger and bee stings Urinary Catheter Management^: Bean: Cath Placed During This Visit: yes, but has since been removed by the nurse Reason for Continuing Indwelling Catheter: Decision to DC Catheter Urinary Catheter Date of Insertion: 03/07/21 Urinary Catheter Time of Insertion: 11:32 Date Urinary Catheter Removed: 03/09/21 Time Urinary Catheter Discontinued: 11:44 Data : 03/10/21 05:00 03/10/21 05:00 Micro: Microbiology 03/06/21 12:30 Blood Culture - Final Blood NO GROWTH AFTER 5 DAYS A&P Assessment and plan (1) Sepsis: -Currently tachycardic, febrile with temp 100.6, respiratory 24, required 2 L -Resolved -Has UA evidence of UTI, no radiographic evidence of pyelonephritis or obstructive uropathy -Has clinical evidence of periorbital cellulitis on admission per prior physician notes. -Currently appears to have conjunctival injection. No orbital proptosis. pain with EOM or visual field deficits. -With acute encephalopathy which has resolved -With LEIDY, rhabdomyolysis Plan: Transition to oral antibiotics today. Discussed with patient regarding recurrence of fevers. Advisory from hospital if febrile at home. Wanted to be discharged. Status: Acute (2) Periorbital cellulitis: Status: Acute (3) Acute kidney injury: Resolved. Status: Acute (4) Acute encephalopathy: Resolved Status: Acute (5) Acute UTI: Valerio susceptible E coli No urinary symptoms Bean catheter was discontinued on Status: Acute (6) Blunt trauma of face: Status: Acute (7) Cellulitis: Status: Acute (8) Rhabdomyolysis: Improving. Status: Acute (9) Conjunctivitis: Outpatient follow-up with ophthalmology. No visual disturbances, no chemosis or proptosis. No evidence of orbital involvement. Status: Acute Additional A&P Information Discharge orders placed. Attestations Medical Necessity Statement*: Plan to discharge today. Time Spent in Patient Care: Greater than 35 minutes (>than 50% of time spent in counselling and/or direct pt care on unit). Coding Level of Care Code Acute Advertisement Compositor for [facility] Fwd Diagnoses Sepsis A41.9 Periorbital cellulitis L03.213 Acute kidney injury N17.9 Acute encephalopathy G93.40 Acute UTI N39.0 Blunt trauma of face S09.93XA Cellulitis L03.90 Rhabdomyolysis M62.82 Conjunctivitis H10.9
--- NOTE | 2021-03-11 15:49 | P.DS_ITS ---
Discharge Providers Date of Admission: 03/06/21 23:29 Date of Discharge: March 11, 2021 Attending Provider at Admission: Major Damian MD Attending Provider at Discharge: Jay Wright Primary Care Provider: GUERRERO Stewart Diagnoses at Discharge Discharge Diagnosis (1) Sepsis: Status: Resolved (2) Periorbital cellulitis: Status: Resolved (3) Acute kidney injury: Status: Resolved (4) Acute encephalopathy: Status: Acute (5) Acute UTI: Status: Resolved (6) Blunt trauma of face: Status: Resolved (7) Cellulitis: Status: Resolved (8) Rhabdomyolysis: Status: Resolved (9) Conjunctivitis: Status: Acute Reason for Visit Reason for Visit: CONFUSION Hospital Course Hospital Course 70 year old female with a past medical history of microcytic anemia, history of leukopenia, who presents to [facility] with her son due to concerns for altered mental status. Currently patient is alert to person, place, not to time, she has episodes of drowsiness and lucidity, she does answers a significant portion of the questions appropriately, but her son is at bedside to fill in the gaps. According to patient, she went to work on Saturday, nothing out of the ordinary, but starting on Saturday, she did not feel well, no cough, no fevers, no nausea, no vomiting or abdominal pain, no chest pain, no diarrhea, no constipation she just was not feeling well. When she did not show up to [employer] on Saturday, her children were worried, so her other son called her and she was able to excelsior picker the phone, she told the family she just was not feeling well, so she wanted some clare fam, and her son was able to bring it to her and leave it out at her front steps but he did not see her. 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 No known sick contacts, she has not received the Covid vaccination, no known exposure to COVID-19. She has been seen recently, she is fairly healthy, no headache, blurry vision, no strokelike symptoms no facial droop, slurring of her speech, she was found with her right eye swollen, on the floor. In the emergency room, she was found to be tachycardic, febrile, requiring 2 L, work-up evidence of sepsis, UTI, some evidence of periorbital cellulitis, poor periorbital swelling, no radiographic evidence of fractures, no intracranial bleed, no acute stroke. Currently patient has no complaints, but she does doze in and out of answering questions. Patient was continued on IV antibiotics or hospitalization. Her leukocytosis had resolved. She briefly did have intermittent episodes of fever. At the time I assumed care patient her previously noted periorbital cellulitis had resolved. She did however noted to have conjunctival injection. This also improved. No visual deficits. No pain with extraocular movements. Outpatient ophthalmology consultation was requested. Of note orbital CT did show soft tissue edema with enhancement overlying the right orbit consistent with cellulitis or contusion. No evidence of orbital cellulitis was noted. 03/06/2021 blood cultures did not show any growth. Bacterial antigen was also negative. Urine culture however did show E coli. Intermittently did require Bean however urinary retention resolved. Laboratory workup on day of discharge showed a WBC of 3.9, hemoglobin 10.9, hematocrit 35.4 and a platelet count of 144. Sodium 139, potassium 3.0- this was replaced, chloride 104, bicarb 28, BUN 12 and creatinine of 0.6. AST of 40, ALT of 16, alkaline phosphatase of 55. Rhabdo which patient presented with a CPK of 2116 had resolved to 165. Additional testing throughout hospitalization included COVID-19 which was negative. Patient was discharged however extensively counseled on returning to hospital if any recurrence of fever at home. Physical Exam Const: COMMON NORMALS: no acute distress EXAM LIMITATIONS: altered mental status ORIENTATION/CONSCIOUSNESS: Yes awake, Yes oriented to person and Yes oriented to place; not oriented to time HENMT: COMMON NORMALS: normocephalic HEAD & SCALP: normocephalic OTHER: Periorbital edema resolved, conjuntical injection improved. Eye: COMMON NORMALS: Equal, round and reactive pupils present PUPIL: Yes Equal, round and reactive pupils present Neck/C-Spine: COMMON NORMALS: full ROM and Thyroid normal THYROID: Thyroid normal Lymph: LYMPHATIC: lymphadenopathy (Cervical) Resp: COMMON NORMALS: normal respiratory effort, No retractions, No use of accessory muscles and clear to auscultation bilaterally AUSCULTATION: clear to auscultation bilaterally Cardio: COMMON NORMALS: regular rate, regular rhythm, S1 normal heart sound present, S2 normal heart sound present, No gallops present (Cardio), No clicks present (Cardio) and No murmurs present (Cardio) RATE: regular rate RHYTHM: regular rhythm HEART SOUNDS: S1 normal heart sound present and S2 normal heart sound present GI: COMMON NORMALS: Normal to inspection, nondistended, normoactive bowel sounds present, Soft to palpation, non-tender and No hepatosplenomegaly present PALPATION: Yes Soft to palpation and Yes No hepatosplenomegaly present Extremity: COMMON NORMALS: no pedal edema Neuro: COMMON NORMALS: moves all extremities and no focal motor deficits SENSORIUM/ORIENTATION: Yes oriented to person, Yes oriented to place and No oriented to time Skin: OTHER: Bilateral lower extremities, scarring from multiple chigger and bee stings Urinary Catheter Management^: Bean: Cath Placed During This Visit: yes, but has since been removed by the nurse Reason for Continuing Indwelling Catheter: Decision to DC Catheter Urinary Catheter Date of Insertion: 03/07/21 Urinary Catheter Time of Insertion: 11:32 Date Urinary Catheter Removed: 03/09/21 Time Urinary Catheter Discontinued: 11:44 Discharge Data Data Completed and Pending: Completed Studies During Hospitalization Category Date Time Status CT abdomen pelvis w con* [id number] Urge nt Cat Scan 03/06/21 11:[address] cervical spin wo con* [id number] Urge nt Cat Scan 03/06/21 11:[address] head wo con* [id number] Stat Cat Scan 03/06/21 11:[address] orbit BI w con [id number] Urgent Cat Scan 03/06/21 11:42 Completed XR chest 1V fabiola ble [id number] Stat Exams 03/06/21 11:40 Completed XR pelvis 1-2V* 7 [id number] Urgent Exams 03/06/21 12:12 Completed Vitals: Last Vital Signs Temp 98.8 F 03/11/21 17:04 Pulse 81 03/11/21 17:04 Resp 17 03/11/21 17:04 BP 142/79 03/11/21 17:04 Pulse Ox 94 03/11/21 17:04 Discharge Plan Discharge Patient Disposition: Home Condition: Stable Prescriptions: New pantoprazole 40 mg Tablet,Delayed Release (Dr/Ec) 40 mg PO DAILY@1700 Qty: 14 RF: 0 Augmentin 875-125 mg tablet 1 tab PO Q12H Qty: 6 RF: 0 Continued metoprolol tartrate 25 mg tablet 25 mg PO BID 30 Days Qty: 60 RF: 1 aspirin 325 mg Tablet 325 mg PO PRN RF: 0 Discharge Orders: Discharge Order (Routine); Ordered 03/11/21 Ordered By: Jay Wright Referrals: Pina Pro FNP [Primary Care Provider] - (Please call Saturday to schedule a follow up appointment. ) Discharge Diet: Usual diet Discharge Activity: Increase activity as tolerated Patient Instructions: Cellulitis, Amoxicillin/Clavulanate Potassium (By mouth), Pantoprazole (By mouth), Urinary Tract Infection in Women (GEN), Rhabdomyolysis (DC), Sepsis (GEN) Activity Restrictions/Additional Instructions: Consult on return to hospital if any recurrence of fever. Discharge Attestations Time Spent in Discharge Care*: greater than 30 min Specific Discharge Activities: educating patient, discussing with pcp/other providers, discussing with employment evaluator/case manager/social workers/dc planners, documenting/other paperwork and evaluating patient/reviewing data Status at Discharge: Cognitive status at discharge: cognitively intact , Behavioral status at discharge: cooperative , Functional status at discharge: independent ambulation Overall status at discharge: patient is progressing back to baseline Quality Metrics Clinical Quality Measures During this hospital stay, did patient experience: None Coding Level of Care Code Acute Chg FW DC note Diagnoses Sepsis A41.9 Periorbital cellulitis L03.213 Acute kidney injury N17.9 Acute encephalopathy G93.40 Acute UTI N39.0 Blunt trauma of face S09.93XA Cellulitis L03.90 Rhabdomyolysis M62.82 Conjunctivitis H10.9
[2021-03-11 17:04] VITALS: BP 142/79; PULSE 81; RESP 17; TEMP 37.1; O2SAT 94
--- NOTE | 2021-03-16 09:09 | PC.SOCIAL ---
discharge follow up call made. Patient saw Dr. Camara this week, antibiotics were changed. Patient will see PCP this coming week. Taking medications as prescribed, starting to feel better. No questions or concerns.
== END 2021-03-11 12:21 | disposition home or self-care (01) | DRG 872 ==
LOC: ER 15:28 → ER IP 22:51 → MEDSURG 23:31
PROVIDERS: Admitting Provider Family Medicine; Emergency Provider Emergency Medicine; PCP Nurse Practitioner; Visit Provider Hospitalist
DX: A41.51 Sepsis due to Escherichia coli [E. coli] (principal); N39.0 Urinary tract infection, site not specified; M62.82 Rhabdomyolysis; L03.213 Periorbital cellulitis; N17.9 Acute kidney failure, unspecified; G93.40 Encephalopathy, unspecified; H05.011 Cellulitis of right orbit; S09.93XA Unspecified injury of face, initial encounter; W19.XXXA Unspecified fall, initial encounter; Y93.9 Activity, unspecified; Y92.009 Unspecified place in unspecified non-institutional (private) residence as the place of occurrence of the external cause; H10.9 Unspecified conjunctivitis; R33.9 Retention of urine, unspecified; Z87.59 Personal history of other complications of pregnancy, childbirth and the puerperium; Z20.822 Contact with and (suspected) exposure to COVID-19; Z80.1 Family history of malignant neoplasm of trachea, bronchus and lung; Z79.82 Long term (current) use of aspirin
CPT/HCPCS: 36415; 51701; 51702; 70450; 70481; 71045; 72125; 72170; 74177; 80053; 80202; 81001; 82550; 83605; 83735; 83880; 84100; 84145; 84443; 84484; 85025; 85610; 85730; 86140; 86403; 87040; 87077; 87086; 87186; 87426; 87635; 93005; 96361; 96365; 96366; 96367; 96372; 97110; 97112; 97116; 97161; 97165; 97530; 97535; 99285; C9113; J1650; J2543; J3370; J7030; J7050; Q9967

== ENCOUNTER 2021-03-24 13:59 | Outpatient (CLI) | payer MEDICARE, SELFPAY ==
--- NOTE | 2021-03-24 14:41 | CT_ITS ---
WS: [id number] Exam: CT neck w con* [id number] Date/Time of Exam: 03/24/2021 2:43 PM Reason For Exam: PAROTID MASS RIGHT The neck is evaluated in the axial plane with sagittal and coronal reformatted images. Enlarged necr otic lymph nodes in the right neck in the region of the right parotid gland. The largest node measure s 2.4 cm at greatest short axis dimension. The right parotid gland itself is also contains several cy stic-appearing and intraparotid lymph nodes. There are also cystic lesions in the left parotid lobe t he largest about 2 cm at greatest diameter. There is also 1 cm cystic nodule seen along the medial as pect of the right carotid sheath that may represent a necrotic lymph node. No mass is seen in the reg ion of the tongue base. The submandibular glands are difficult to identify. The airway is patent. Vas cular structures are unremarkable. Small cyst in the left thyroid lobe. Upper lung zones are clear. D egenerative changes of the cervical spine. Small left axillary lymph nodes are seen. DLP: 420.[address] scans at [facility] use at least one of these dose optimization techniques: automat ed exposure control; mA and/or kV adjustment per patient size (includes targeted exams where dose is matched to clinical indication); or iterative reconstruction. CT/CT neck w con* [id number] IMPRESSION: 1. Multiple enlarged necrotic lymph nodes in the right and left neck. Some are in the parotid glands. These may represent malignant necrotic nodes or abscess nodes from infection. Biopsy would be indicated for definitive diagnosis. 2. Small left axillary lymph nodes noted which are nonspecific.
[2021-03-24] MEDS: iohexol 300 mg/mL 100 mL Btl IV (15:00)
== END 2021-03-24 14:00 | disposition home or self-care (01) ==
PROVIDERS: PCP Electrodiagnostic Medicine; Visit Provider Electrodiagnostic Medicine
DX: K11.8 Other diseases of salivary glands (principal)
CPT/HCPCS: 70491; Q9967

== ENCOUNTER 2021-07-18 09:17 | Outpatient (CLI) | payer MEDICARE, SELFPAY ==
[2021-07-18 10:22] LABS: Basophils % 0.4 %; Eosinophils # 0.1 10^3/uL (0.0-0.8); Eosinophils % 2.2 %; Hematocrit 38.2 % (37.0-47.0); Hemoglobin 11.9 g/dL (11.5-15.3); Lymphocytes % 41.9 %; Mean Corpuscular HGB Conc 31.2 g/dL (30.0-36.0); Mean Corpuscular Hemoglobin 26.8 pg (28.0-34.0); Mean Platelet Volume 10.7 fL (7.4-10.4); Monocytes # 0.3 10^3/uL (0.2-0.9); Neutrophils % 41.5 %; Nucleated Red Blood Cells % 0 %; Platelet Count 168 10^3/cmm (130-400); Red Blood Count 4.44 10^6/uL (4.1-5.3); Red Cell Distribution Width 13.8 % (12.1-15.1); White Blood Count 2.3 10^3/uL (4.0-10.0)
[2021-07-18 10:36] LABS: Alanine Aminotransferase 7 U/L (0-33); Albumin Level 3.7 g/dL (3.5-5.2); Alkaline Phosphatase 95 IU/L (35-105); Anion Gap 15.8 (5-19); Aspartate Amino Transferase 21 U/L (0-32); Blood Urea Nitrogen 9 mg/dL (8-23); Carbon Dioxide 24 mmol/L (22-29); Chloride 104 mmol/L (98-107); Globulin 3.9 g/dL (1.3-4.6); Glucose 95 mg/dL (65-115); Osmolality Calculated 288 mOsm/kg (285-295); Potassium 3.8 mmol/L (3.5-5.1); Sodium 140 mmol/L (136-145); Total Bilirubin 0.2 mg/dL (0.15-1.2); Total Protein 7.6 g/dL (6.6-8.7)
[2021-07-18 10:59] LABS: Neutrophils # 0.95 10^3/uL (1.8-7.7); Slide Review Slide Review Perform
--- NOTE | 2021-07-18 12:26 | ONC FU_ITS ---
Dr. Valerio follow up note Patient: Clare Stovall Unit #: [id number]: 1950 Dicatated By: Shilpa Valerio M.D.Date of Visit:Jul 18, 2021 Onc Med Follow-up/Prog Note History of Present Illness: Mrs. Clare Stovall is a 71-year-old female who was admitted to hospital on 01/10/2019 with multiple bee stings. 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 She was treated with supportive care and epinephrine drip and her initial lab showed severe anemia hemoglobin was 7.3 g hematocrit 24.6 white blood count 3.8 and platelets 379,000 she was given 2 units of packed RBCs. Prior to admission she was not aware of anemia and anemia related symptoms. Patient denies any history of melena or hematochezia, denies any history of hemoptysis or hematemesis, denies any history of nosebleed or gross bleeding. History of anemia during at that time she took iron supplements. EGD colonoscopy done on 03/23/2019 showed moderate chronic patchy gastritis but no bleeding and colonoscopy was unremarkable. Abdominal sonogram done on February 01, 2020 showed mild bilateral renal atrophy with left renal cysts spleen is normal size Came for follow-up, denies any specific complaint except since her last visit as per patient she was admitted to hospital in February 2021 with tach fever which was confirmed with tick panel and she was treated with antibiotics for over 1 week as inpatient. As per patient then she developed a mass in her right neck for which she was referred to Dr. Maharaj, ENT who ordered FNA of right neck mass in March 2021, as per patient she was told there were cancer cell and she was referred to [facility] in [place] where she saw Dr. Nowak, ENT who repeated right neck FNA and she was told there were necrotic tissue noted that the cancer cell but she was treated with antibiotic for tularemia causing lymphadenopathy, with that right neck mass resolved and during her routine follow-up with PMD, her lab work-up shows persistent leukopenia and neutropenia and she was asked to see us again., Patient was supposed to come back to see us again after tax season as bone marrow evaluation was recommended during her previous visit but patient wanted to wait till the tax season is over, as per patient in summer she developed tach fever and subsequently the issues mentioned above. Today she denies any specific complaints, no fever chills, no nausea or vomiting, no diarrhea constipation, no melena or hematochezia, no hemoptysis or hematemesis, no dysuria no sore throat no lymphadenopathy, no night sweats Medications: Ferrous Sulfate 1 Tablet (of 325 (65 fe) mg) Oral daily, Metoprolol Tartrate 1 Tablet (of 25 mg) Oral b.i.d. Allergies: Bee Sings Review of Systems: Review of Systems is not available for this patient. Vital Signs: Vitals are not available for this patient. Performance Status: 0 - Fully active, able to carry on all predisease activities without restrictions. (ECOG) Physical Examination: ENMT - No mouth sores, no thrush, no jaundice, in the right neck small tiny nodules in submandibular area, as per patient, due to FNA done twice. Small shotty lymphadenopathy, Respiratory - Lungs are clear to auscultation, Cardiovascular - Regular rate and rhythm of heart, Abdomen - Soft, bowel sounds present, Extremities - No visible edema or rash. Lab/Imaging: Most recent lab results are not available for this patient. Impression: Microcytic anemia most likely iron deficiency due to either malabsorption or chronic GI blood loss. Considering her age underlying myelodysplasia cannot be ruled out. Her CBC from 01/10/2019 showed white blood count 3.8, hemoglobin 7.3 mg, hematocrit 24.6 platelets 379,000 and creatinine 1 Lab workup done on 01/15/2019 shows B12 207 normal being 232 -1245 and ferritin 25 folic acid 6 iron saturation 4.6 She was given 2 units of packed RBCs on 01/11/2019 Plan: Discussed with patient regarding her labs white blood count 2.3 hemoglobin 11.9 hematocrit 38.2 platelets 168,000 ANC 950 Clinically, patient is doing well with no signs symptom suggestive of infection her follow-up CBC shows persistent leukopenia/neutropenia etiology remained unclear, bone marrow evaluation was considered during prior visit but patient wanted to wait till tax season is over, as per patient, she developed thick fever in summer and Subsequently right neck mass, for which she underwent CT PET scan in March 2021 which shows increased uptake in the neck, FNA was done by Dr. Maharaj, as per patient it shows that the cancer cell, then she was referred to [facility] where she underwent repeat FNA and was diagnosed with tularemia and treated with antibiotics, as per patient she was told again that she had some cancer cell. . So we will obtain records from [facility] and Dr. Maharaj's office and CT PET scan report and review, today's labs shows persistent moderate isolated leukopenia/neutropenia, etiology remains unclear could be underlying myelodysplasia. She will return to clinic in 2 weeks with CBC and in the meantime we will obtain records from above-mentioned offices and review and may consider bone marrow evaluation. Signed By: Shilpa Valerio M.D. <<Signature on File>>
== END 2021-07-18 09:18 | disposition home or self-care (01) ==
PROVIDERS: PCP Electrodiagnostic Medicine; Visit Provider Internal Medicine Hematology & Oncology
DX: D50.9 Iron deficiency anemia, unspecified (principal); Z09 Encounter for follow-up examination after completed treatment for conditions other than malignant neoplasm
CPT/HCPCS: 36415; 80053; 85025; 99214

== ENCOUNTER 2021-08-01 10:17 | Outpatient (CLI) | payer MEDICARE, SELFPAY ==
[2021-08-01 11:25] LABS: Basophils % 0.4 %; Eosinophils % 1.4 %; Hematocrit 38.6 % (37.0-47.0); Hemoglobin 12.1 g/dL (11.5-15.3); Lymphocytes # 1.1 10^3/uL (0.8-4.8); Lymphocytes % 38.4 %; Mean Corpuscular HGB Conc 31.3 g/dL (30.0-36.0); Mean Corpuscular Hemoglobin 26.2 pg (28.0-34.0); Mean Corpuscular Volume 83.5 fl (81-99); Mean Platelet Volume 10.3 fL (7.4-10.4); Monocytes # 0.4 10^3/uL (0.2-0.9); Monocytes % 12.8 %; Neutrophils # 1.32 10^3/uL (1.8-7.7); Nucleated Red Blood Cells % 0 %; Platelet Count 167 10^3/cmm (130-400); Red Blood Count 4.62 10^6/uL (4.1-5.3); Red Cell Distribution Width 13.5 % (12.1-15.1); White Blood Count 2.8 10^3/uL (4.0-10.0)
== END 2021-08-01 10:18 | disposition home or self-care (01) ==
LOC: ONCMED 10:23
PROVIDERS: Internal Medicine Hematology & Oncology; PCP Electrodiagnostic Medicine; Visit Provider Nurse Practitioner Family
DX: D64.9 Anemia, unspecified (principal)
CPT/HCPCS: 36415; 85025; 99214

== ENCOUNTER → 2021-08-09 16:49 | Outpatient (BNVA) | payer MEDICARE, SELFPAY | PROVIDERS: PCP Electrodiagnostic Medicine; Visit Provider Internal Medicine Hematology & Oncology | DX: Z01.812 Encounter for preprocedural laboratory examination (principal) | CPT/HCPCS: 87635 ==

== ENCOUNTER 2021-08-14 10:47 | Day surgery (SDC) | payer MEDICARE, SELFPAY ==
[2021-08-09 14:31] VITALS: BMI 21.5
--- NOTE | 2021-08-14 11:07 | ANES.PREANE2 ---
Pre-Anesthetic Assessment Pre-Anesthetic Assessment: Height/Weight: Height 1.57 m Weight 53.524 kg Proposed Procedure: Operation Date: 08/14/21 12:00 Proposed Procedures p Bone Marrow Biospy With Aspiration(Not Applicable) - Shilpa Valerio MD Was Beta Guilherme taken within 24 hours: N/A Was Clonidine taken within 24 hours: N/A Social: Social History: No alcohol and No tobacco Exam: Pre-Anes Outpt Exam: alert, oriented x 3, clear to auscultation bilaterally and regular rate & rhythm Airway: Submandibular: WNL Cervical ROM: WNL MP: 2 Dentition: False CV/HEM: CV/HEM: HTN Anesthetic Plan: ASA status: 2 Anesthesia: MAC Risk of > 500 ml blood loss (7ml/kg in children): No PFSH Anesthesia PFSH: Medical History (Updated 08/10/21 @ 00:01 by ) History of microcytic hypochromic anemia Surgical History (Updated 03/06/21 @ 16:50 by Major Damian MD) History of 3 sections Family History (Updated 03/06/21 @ 16:50 by Major Damian MD) Father Lung cancer Social History (Updated 03/06/21 @ 16:50 by Major Damian MD) Smoking and tobacco status: never smoked Alcohol intake: never Data Anesthesia Cardiac Studies: No Data to Display
[2021-08-14 11:20] VITALS: BP 216/137; PULSE 114; RESP 18; TEMP 37; O2SAT 99
[2021-08-14 11:24] VITALS: BP 200/110
--- NOTE | 2021-08-14 11:25 | PC.NURSE ---
Addendum entered by Vidal Vera RN 08/14/21 11:26: Dr. Lima notified. Original Note: 200/110 manual BP
[2021-08-14 11:44] LABS: Basophils % 0.3 %; Eosinophils # 0.1 10^3/uL (0.0-0.8); Eosinophils % 2.3 %; Hematocrit 42.7 % (37.0-47.0); Hemoglobin 13.5 g/dL (11.5-15.3); Lymphocytes # 1.2 10^3/uL (0.8-4.8); Mean Corpuscular HGB Conc 31.6 g/dL (30.0-36.0); Mean Corpuscular Hemoglobin 26.7 pg (28.0-34.0); Mean Corpuscular Volume 84.4 fl (81-99); Mean Platelet Volume 11.5 fL (7.4-10.4); Monocytes # 0.4 10^3/uL (0.2-0.9); Monocytes % 12.2 %; Neutrophils # 1.71 10^3/uL (1.8-7.7); Neutrophils % 49.9 %; Nucleated Red Blood Cells % 0 %; Platelet Count 225 10^3/cmm (130-400); Red Blood Count 5.06 10^6/uL (4.1-5.3); Red Cell Distribution Width 13.8 % (12.1-15.1); White Blood Count 3.4 10^3/uL (4.0-10.0)
[2021-08-14] MEDS: sodium chloride 0.9% 1,000 ML 30 ML IV (11:45)
--- NOTE | 2021-08-14 11:49 | W.PM.OPSUD ---
Surgery/Procedure H&P Update DATE OF PROCEDURE: August 14, 2021 DATE H&P PERFORMED: 07/18/21 PLANNED PROCEDURE: Operation Date: 08/14/21 12:00 Proposed Procedures p Bone Marrow Biospy With Aspiration(Not Applicable) - Shilpa Valerio MD Patient seen and evaluated in GI Lab for bone marrow aspiration biopsy, since last encounter, no change in her physical exam and any new symptoms, will proceed with bone marrow aspiration biopsy as planned.
[2021-08-14] MEDS: metoprolol tartrate 1 mg/1 mL SDV 5 mL 5 MG IVP (12:00)
--- NOTE | 2021-08-14 13:29 | P.PCN_ITS ---
Bone Marrow Biopsy Bone Marrow Biopsy: I was consulted by [] office regarding bone marrow biopsy on []. Briefly, the patient is a [71] year old [Female] with [Leukopenia and anemia]. In the Outpatient Services Department, with nursing staff and laboratory technologists in attendance, the procedure was discussed with the patient. Appropriate consent form had been signed. Appropriate alternatives, benefits and risks of procedure were discussed with the patient and she was pre- operatively assessed with a history and physical by myself and cleared for the biopsy procedure. The patient did request IV sedation and that was provided by the Anesthesia Department.Under aseptic condition right posterior iliac area was cleaned and prepped, local anesthesia was given, about 10 cc of bone marrow aspirate and core biopsy was obtained, specimen was sent for routine histopathology, flow cytometric/cytogenetics and FISH for MDS. Post procedure nurse instructions irwin given Thank you for allowing me to participate in this patient's care and diagnosis. Coding Level of Care Code Acute Quality Control Expert for Tasneem Pratt
[2021-08-14 13:42] VITALS: BP 128/76; PULSE 77; RESP 16; TEMP 36.4; O2SAT 98
[2021-08-14 13:55] VITALS: BP 169/106; PULSE 75; RESP 16; O2SAT 97
--- NOTE | 2021-08-14 14:15 | ANE.PACU2 ---
Inpatient post-anesthesia follow up: Airway intact: Yes Vital signs: Temperature 97.6 F Pulse Rate 75 Respiratory Rate 16 Blood Pressure 169/106 Pulse Oximetry 97 Oxygen Delivery Me thod Room Air Oxygen Flow Rate Fraction of Inspir ed Oxygen Hydration adequate: Yes Nausea and vomiting: No Pain level: 1 Mental status: Baseline
[2021-08-16 07:55] LABS: Miscellaneous Test See Scanned Lab Rpt
[2021-09-01 09:26] LABS: Miscellaneous Test See Scanned Lab Rpt
== END 2021-08-14 14:09 | disposition home or self-care (01) ==
PROVIDERS: PCP Electrodiagnostic Medicine; Visit Provider Internal Medicine Hematology & Oncology
PROC: 07DT3ZX Extraction of Bone Marrow, Percutaneous Approach, Diagnostic (ICD-10-PCS; CPT 38222; principal; 2021-08-14 12:00)
DX: D72.819 Decreased white blood cell count, unspecified (principal); D64.9 Anemia, unspecified; I10 Essential (primary) hypertension; Z80.1 Family history of malignant neoplasm of trachea, bronchus and lung
CPT/HCPCS: 36415; 38222; 85025; 88184; 88185; 88237; 88264; 88305; 88311; 88367; 88374; 96374; J3490; J7030

== ENCOUNTER 2021-08-15 08:32 | Outpatient (CLI) | payer MEDICARE, SELFPAY ==
--- NOTE | 2021-08-15 08:38 | MM_ITS ---
WS: [id number] BILATERAL DIGITAL SCREENING MAMMOGRAPHY WITH CAD CLINICAL INFORMATION: SCREENING HISTORY: Screening mammogram. No current complaints. COMPARISON: None. TECHNIQUE: Bilateral CC and MLO views. FINDINGS: The breasts are composed of heterogeneous fibroglandular density tissue, which can limit the detectio n of small underlying mass lesions. Dystrophic calcification left breast. A few punctate calcificatio ns. Vascular calcification. No suspicious mass, asymmetry, calcifications, or architectural distortio n. No evidence of malignancy. MM/[place] [id number] IMPRESSION: BI-RADS: 2-Benign FOLLOW UP: 1 Year Follow-up Recommend return to annual screening mammography.
== END 2021-08-15 08:33 | disposition home or self-care (01) ==
LOC: RADSHAW 08:34
PROVIDERS: PCP Electrodiagnostic Medicine; Visit Provider Electrodiagnostic Medicine
DX: Z12.31 Encounter for screening mammogram for malignant neoplasm of breast (principal)
CPT/HCPCS: 77067

== ENCOUNTER 2021-09-06 12:54 | Outpatient (CLI) | payer MEDICARE, SELFPAY ==
[2021-09-06 13:51] LABS: Basophils % 0.4 %; Eosinophils # 0.1 10^3/uL (0.0-0.8); Hematocrit 36.5 % (37.0-47.0); Hemoglobin 11.4 g/dL (11.5-15.3); Lymphocytes # 0.9 10^3/uL (0.8-4.8); Lymphocytes % 36.5 %; Mean Corpuscular HGB Conc 31.2 g/dL (30.0-36.0); Mean Corpuscular Hemoglobin 26.3 pg (28.0-34.0); Mean Corpuscular Volume 84.3 fl (81-99); Mean Platelet Volume 10.8 fL (7.4-10.4); Monocytes # 0.3 10^3/uL (0.2-0.9); Monocytes % 12.2 %; Neutrophils # 1.25 10^3/uL (1.8-7.7); Neutrophils % 48.9 %; Nucleated Red Blood Cells % 0 %; Platelet Count 187 10^3/cmm (130-400); Red Blood Count 4.33 10^6/uL (4.1-5.3); White Blood Count 2.6 10^3/uL (4.0-10.0)
[2021-09-06 14:24] LABS: Alanine Aminotransferase 8 U/L (0-33); Albumin Level 4.1 g/dL (3.5-5.2); Alkaline Phosphatase 102 IU/L (35-105); Anion Gap 16.4 (5-19); Aspartate Amino Transferase 24 U/L (0-32); Blood Urea Nitrogen 15 mg/dL (8-23); Calcium 9.9 mg/dL (8.5-10.5); Carbon Dioxide 23 mmol/L (22-29); Chloride 104 mmol/L (98-107); Globulin 3.5 g/dL (1.3-4.6); Glucose 90 mg/dL (65-115); Osmolality Calculated 288 mOsm/kg (285-295); Potassium 4.4 mmol/L (3.5-5.1); Sodium 139 mmol/L (136-145); Total Bilirubin 0.2 mg/dL (0.15-1.2); Total Protein 7.6 g/dL (6.6-8.7)
== END 2021-09-06 12:55 | disposition home or self-care (01) ==
LOC: ONCMED 13:05
PROVIDERS: PCP Electrodiagnostic Medicine; Visit Provider Internal Medicine Hematology & Oncology
DX: D64.9 Anemia, unspecified (principal)
CPT/HCPCS: 36415; 80053; 85025

== ENCOUNTER 2021-09-07 06:22 | Outpatient (CLI) | payer MEDICARE, SELFPAY ==
--- NOTE | 2021-09-07 16:19 | ONC FU_ITS ---
Dr. Valerio follow up note Patient: Clare Stovall Unit #: [id number]: 1950 Dicatated By: Shilpa Valerio M.D.Date of Visit:Sep 07, 2021 Onc Med Follow-up/Prog Note History of Present Illness: Mrs. Clare Stovall is a 71-year-old female who was admitted to hospital on 01/10/2019 with multiple bee stings. 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 She was treated with supportive care and epinephrine drip and her initial lab showed severe anemia hemoglobin was 7.3 g hematocrit 24.6 white blood count 3.8 and platelets 379,000 she was given 2 units of packed RBCs. Prior to admission she was not aware of anemia and anemia related symptoms. Patient denies any history of melena or hematochezia, denies any history of hemoptysis or hematemesis, denies any history of nosebleed or gross bleeding. History of anemia during at that time she took iron supplements. EGD colonoscopy done on 03/23/2019 showed moderate chronic patchy gastritis but no bleeding and colonoscopy was unremarkable. Abdominal sonogram done on February 01, 2020 showed mild bilateral renal atrophy with left renal cysts spleen is normal size as per patient she was admitted to hospital in February 2021 with tic fever which was confirmed with tick panel and she was treated with antibiotics for over 1 week as inpatient. As per patient then she developed a mass in her right neck for which she was referred to Dr. Maharaj ENT who ordered FNA of right neck mass in March 2021, as per patient she was told there were cancer cell and she was referred to [facility] in [place] where she saw TIAN Velasquez who repeated right neck biopsy and she was told there were necrotic tissue noted that the cancer cell but she was treated with antibiotic for tularemia causing lymphadenopathy, with that right neck mass resolved and during her routine follow-up with PMD, her lab work-up shows persistent leukopenia and neutropenia and she was asked to see us again., , Eventually underwent bone marrow evaluation on August 14, 2021 and showed normal to mildly hypercellular bone marrow for age with trilineage hematopoiesis. No overt dyspoietic or megaloblastic changes seen. Blasts are not appear to be increased. No bone marrow infiltrative disorder detected. Flow cytometry showed no abnormality FISH for MDS was unremarkable, Mammogram done on August 15, 2021 shows BI-RADS 2, benign Came for follow-up, denies any specific complaints, no fever chills, no nausea or vomiting, no diarrhea or constipation, no night sweats, no peripheral lymphadenopathy, no abdominal fullness, no dysuria or hematuria. No neck mass, now being followed by Dr. Maharaj, ENT as per patient she is scheduled to see him in November 2021 Medications: amLODIPine Besylate 1 Tablet (of 5 mg) Oral daily, Ferrous Sulfate 1 Tablet (of 325 (65 fe) mg) Oral daily, Lisinopril 1 Tablet (of 40 mg) Oral daily, Pepcid 1 Tablet (of 20 mg) Oral b.i.d. Allergies: Bee Sings Review of Systems: Review of Systems is not available for this patient. Vital Signs: Performed on Sep 07, 2021 09:22 Height - 61.50 in Weight - 118.2 lbs (LOW) BSA - 1.52 sq.m BMI - 21.97 Temperature - 97.2 F (LOW) Pulse - 91 /min Respiration - 18 /min BP - 192/113 mm(hg) (HIGH) O2 Sat - 99 % Pain - 0 Fatigue - 7 Performance Status: 0 - Fully active, able to carry on all predisease activities without restrictions. (ECOG) Physical Examination: ENMT - No mouth sores, no thrush, no jaundice, no cervical lymphadenopathy, Respiratory - Lungs are clear to auscultation, Cardiovascular - Regular rate and rhythm of heart, Abdomen - Soft, bowel sounds present, Extremities - No visible edema. Lab/Imaging: Test performed on Aug 01, 2021 10:58 WBC 2.8 10 3/uL RBC 4.62 10 6/uL HGB 12.1 g/dL HCT 38.6 % MCV 83.5 fl MCH 26.2 pg MCHC 31.3 g/dL RDW 13.5 % Platelet Count 167 10 3/cmm MPV 10.3 fL Neutrophils 1.32 10 3/uL Lymphocytes 1.1 10 3/uL Monocytes 0.4 10 3/uL Eosinophils 0.0 10 3/uL Basophils 0.0 10 3/uL Neutrophil % 47.0 % Lymphocyte % 38.4 % Monocyte % 12.8 % Eosinophil % 1.4 % Basophils % 0.4 % NRBC % 0 % Impression: Mild leukopenia/neutropenia and fluctuating mild anemia, etiology unclear Myelodysplasia cannot be ruled out but Bone marrow done on August 14, 2021 showed normal to mildly hypercellular bone marrow for age, no overt dyspoietic or megaloblastic changes seen, no increase in blast cells, no infiltrative disorder no significant reticulin fibrosis., Flow cytometry showed no aberrant myeloid or lymphoid population. FISH for MDS was unremarkable, Other possibility could be micronutrient deficiency, or evolving MDS Lab workup done on 01/15/2019 shows B12 207 normal being 232 -1245 and ferritin 25 folic acid 6 iron saturation 4.6 She was given 2 units of packed RBCs on 01/11/2019 as per patient she was admitted to hospital in February 2021 with tic fever which was confirmed with tick panel and she was treated with antibiotics for over 1 week as inpatient. As per patient then she developed a mass in her right neck for which she was referred to TIAN Gilbert who ordered FNA of right neck mass in March 2021, as per patient she was told there were cancer cell and she was referred to [facility] in [place] where she saw TIAN Velasquez who repeated right neck biopsy and she was told there were necrotic tissue noted that the cancer cell but she was treated with antibiotic for tularemia causing lymphadenopathy, with that right neck mass resolved Plan: Discussed with patient regarding her labs white blood count 2.6, hemoglobin 11.4 hematocrit 36.5 platelets 187,000 ANC 1250 CMP within normal limits Bone marrow done on August 14, 2021 showed normal to mildly hypercellular bone marrow for age, no overt dyspoietic or megaloblastic changes seen, no increase in blast cells, no infiltrative disorder no significant reticulin fibrosis., Flow cytometry showed no aberrant myeloid or lymphoid population. FISH for MDS was unremarkable Clinically, patient doing well with no new signs symptoms or follow-up labs shows persistent mild leukopenia and fluctuating mild anemia, bone marrow evaluation showed no evidence of myelodysplasia or malignancy or infiltrative disorder, no history of splenomegaly per sonogram done in the past so etiology of her mild leukopenia/anemia remained inconclusive, early changes related to MDS may not be obvious at this point, so we will continue to monitor, she will return to clinic in 3 months with CBC, in the meantime patient was advised to try [id number] multivitamins. Signed By: Shilpa Valerio M.D. <<Signature on File>>
== END 2021-09-07 06:23 | disposition home or self-care (01) ==
PROVIDERS: PCP Electrodiagnostic Medicine; Visit Provider Internal Medicine Hematology & Oncology
DX: D72.819 Decreased white blood cell count, unspecified (principal); D70.9 Neutropenia, unspecified; D64.9 Anemia, unspecified
CPT/HCPCS: 99214

== ENCOUNTER 2022-01-08 13:19 | Oncology outpatient (recurring) (ONCR) | payer MEDICARE, SELFPAY ==
[2022-01-08 14:13] LABS: Basophils % 0.9 %; Eosinophils # 0.2 10^3/uL (0.0-0.8); Eosinophils % 4.7 %; Hematocrit 32.3 % (37.0-47.0); Hemoglobin 10.2 g/dL (11.5-15.3); Lymphocytes # 0.8 10^3/uL (0.8-4.8); Lymphocytes % 26.3 %; Mean Corpuscular HGB Conc 31.6 g/dL (30.0-36.0); Mean Corpuscular Volume 85.4 fl (81-99); Mean Platelet Volume 10.8 fL (7.4-10.4); Monocytes # 0.4 10^3/uL (0.2-0.9); Monocytes % 11.7 %; Neutrophils # 1.77 10^3/uL (1.8-7.7); Neutrophils % 56.1 %; Nucleated Red Blood Cells % 0 %; Platelet Count 160 10^3/cmm (130-400); Red Blood Count 3.78 10^6/uL (4.1-5.3); White Blood Count 3.2 10^3/uL (4.0-10.0)
== END 2022-01-25 23:59 | disposition home or self-care (01) ==
PROVIDERS: PCP Electrodiagnostic Medicine; Referring Provider Hospitalist; Visit Provider Internal Medicine Hematology & Oncology
DX: D64.9 Anemia, unspecified (principal); D72.819 Decreased white blood cell count, unspecified
CPT/HCPCS: 85025; 99214

== ENCOUNTER 2022-02-16 07:45 | Oncology outpatient (recurring) (ONCR) | payer MEDICARE, SELFPAY ==
[2022-02-16 09:01] LABS: Basophils % 0.5 %; Eosinophils # 0.3 10^3/uL (0.0-0.8); Eosinophils % 13.1 %; Hematocrit 37.7 % (37.0-47.0); Hemoglobin 11.5 g/dL (11.5-15.3); Lymphocytes # 0.6 10^3/uL (0.8-4.8); Lymphocytes % 29.3 %; Mean Corpuscular HGB Conc 30.5 g/dL (30.0-36.0); Mean Corpuscular Hemoglobin 26.6 pg (28.0-34.0); Mean Corpuscular Volume 87.1 fl (81-99); Mean Platelet Volume 10.6 fL (7.4-10.4); Monocytes # 0.3 10^3/uL (0.2-0.9); Monocytes % 14.1 %; Neutrophils % 42.5 %; Nucleated Red Blood Cells % 0 %; Platelet Count 183 10^3/cmm (130-400); Red Blood Count 4.33 10^6/uL (4.1-5.3); White Blood Count 1.9 10^3/uL (4.0-10.0)
[2022-02-16 09:15] LABS: Neutrophils # 0.81 10^3/uL (1.8-7.7)
[2022-02-16 09:18] LABS: Reticulocyte % 0.7 % (0.5-2.0)
[2022-02-16 09:35] LABS: Ferritin 54 ng/mL (15-150); Iron 62 ug/dL (37-145); Percent Saturation 26.9 % (20-50); Total Iron Binding Capacity 230 mcg/dl; Unsaturated Iron Binding 168 ug/dL (112-347)
[2022-02-16 09:48] LABS: Vitamin B12 306 pg/mL (232-1245)
== END 2022-02-25 23:59 | disposition home or self-care (01) ==
PROVIDERS: PCP Electrodiagnostic Medicine; Referring Provider Hospitalist; Visit Provider Internal Medicine Hematology & Oncology
DX: D64.9 Anemia, unspecified (principal); N28.1 Cyst of kidney, acquired; D72.819 Decreased white blood cell count, unspecified; Z79.899 Other long term (current) drug therapy
CPT/HCPCS: 36415; 82607; 82728; 83540; 83550; 85025; 85045; 99214

== ENCOUNTER 2022-03-23 07:49 | Oncology outpatient (recurring) (ONCR) | payer MEDICARE, SELFPAY ==
[2022-03-23 08:36] LABS: Basophils % 0.5 %; Eosinophils # 0.1 10^3/uL (0.0-0.8); Eosinophils % 6.2 %; Hematocrit 35.5 % (37.0-47.0); Hemoglobin 11.1 g/dL (11.5-15.3); Lymphocytes # 0.7 10^3/uL (0.8-4.8); Lymphocytes % 34.3 %; Mean Corpuscular HGB Conc 31.3 g/dL (30.0-36.0); Mean Corpuscular Hemoglobin 26.9 pg (28.0-34.0); Mean Platelet Volume 10.5 fL (7.4-10.4); Monocytes # 0.3 10^3/uL (0.2-0.9); Monocytes % 15.7 %; Neutrophils % 43.3 %; Nucleated Red Blood Cells % 0 %; Platelet Count 199 10^3/cmm (130-400); Red Blood Count 4.13 10^6/uL (4.1-5.3); Red Cell Distribution Width 14.3 % (12.1-15.1); White Blood Count 2.1 10^3/uL (4.0-10.0)
[2022-03-23 09:05] LABS: Iron 44 ug/dL (37-145); Lactate Dehydrogenase 150 U/L (135-214); Percent Saturation 18.5 % (20-50); Total Iron Binding Capacity 237 mcg/dl; Unsaturated Iron Binding 193 ug/dL (112-347)
[2022-03-23 09:24] LABS: Neutrophils # 0.91 10^3/uL (1.8-7.7)
[2022-03-23 09:27] LABS: Add On to Lab Order(s) Added
== END 2022-03-28 23:59 | disposition home or self-care (01) ==
PROVIDERS: Nurse Practitioner Family; PCP Electrodiagnostic Medicine; Referring Provider Hospitalist; Visit Provider Internal Medicine Hematology & Oncology
DX: D64.9 Anemia, unspecified (principal); D72.819 Decreased white blood cell count, unspecified
CPT/HCPCS: 36415; 83540; 83550; 83615; 85025

== ENCOUNTER 2022-04-20 07:50 | Oncology outpatient (recurring) (ONCR) | payer MEDICARE, SELFPAY ==
[2022-04-20 08:14] LABS: Basophils % 0.4 %; Eosinophils # 0.1 10^3/uL (0.0-0.8); Eosinophils % 4.1 %; Hematocrit 38.4 % (37.0-47.0); Hemoglobin 11.8 g/dL (11.5-15.3); Lymphocytes # 0.8 10^3/uL (0.8-4.8); Lymphocytes % 30.9 %; Mean Corpuscular HGB Conc 30.7 g/dL (30.0-36.0); Mean Corpuscular Hemoglobin 27.1 pg (28.0-34.0); Mean Corpuscular Volume 88.3 fl (81-99); Mean Platelet Volume 10.2 fL (7.4-10.4); Monocytes # 0.3 10^3/uL (0.2-0.9); Monocytes % 11.1 %; Neutrophils # 1.29 10^3/uL (1.8-7.7); Neutrophils % 53.1 %; Nucleated Red Blood Cells % 0 %; Platelet Count 177 10^3/cmm (130-400); Red Blood Count 4.35 10^6/uL (4.1-5.3); Red Cell Distribution Width 14.7 % (12.1-15.1); White Blood Count 2.4 10^3/uL (4.0-10.0)
== END 2022-04-27 23:59 | disposition home or self-care (01) ==
PROVIDERS: PCP Electrodiagnostic Medicine; Referring Provider Hospitalist; Visit Provider Internal Medicine Hematology & Oncology
DX: D64.9 Anemia, unspecified (principal); D72.819 Decreased white blood cell count, unspecified
CPT/HCPCS: 36415; 85025

== ENCOUNTER 2022-05-18 08:00 | Oncology outpatient (recurring) (ONCR) | payer MEDICARE, SELFPAY ==
[2022-05-18 08:42] LABS: Basophils % 0.4 %; Eosinophils # 0.1 10^3/uL (0.0-0.8); Eosinophils % 3.4 %; Hematocrit 38.2 % (37.0-47.0); Hemoglobin 11.7 g/dL (11.5-15.3); Lymphocytes # 0.8 10^3/uL (0.8-4.8); Mean Corpuscular HGB Conc 30.6 g/dL (30.0-36.0); Mean Corpuscular Hemoglobin 26.9 pg (28.0-34.0); Mean Corpuscular Volume 87.8 fl (81-99); Mean Platelet Volume 10.6 fL (7.4-10.4); Monocytes # 0.3 10^3/uL (0.2-0.9); Monocytes % 12.4 %; Neutrophils # 1.44 10^3/uL (1.8-7.7); Neutrophils % 53.8 %; Nucleated Red Blood Cells % 0 %; Platelet Count 197 10^3/cmm (130-400); Red Blood Count 4.35 10^6/uL (4.1-5.3); Red Cell Distribution Width 14.6 % (12.1-15.1); White Blood Count 2.7 10^3/uL (4.0-10.0)
== END 2022-05-28 23:59 | disposition home or self-care (01) ==
PROVIDERS: Nurse Practitioner Family; PCP Electrodiagnostic Medicine; Referring Provider Hospitalist; Visit Provider Internal Medicine Hematology & Oncology
DX: D64.9 Anemia, unspecified (principal); D72.819 Decreased white blood cell count, unspecified
CPT/HCPCS: 36415; 85025; 99214

== ENCOUNTER 2022-08-21 12:40 | Oncology outpatient (recurring) (ONCR) | payer MEDICARE, SELFPAY ==
[2022-08-21 13:11] LABS: Basophils % 0.4 %; Eosinophils # 0.1 10^3/uL (0.0-0.8); Eosinophils % 2.1 %; Hemoglobin 10.8 g/dL (11.5-15.3); Lymphocytes # 0.8 10^3/uL (0.8-4.8); Lymphocytes % 34.2 %; Mean Corpuscular HGB Conc 30.9 g/dL (30.0-36.0); Mean Corpuscular Hemoglobin 26.8 pg (28.0-34.0); Mean Corpuscular Volume 86.8 fl (81-99); Mean Platelet Volume 10.4 fL (7.4-10.4); Monocytes # 0.3 10^3/uL (0.2-0.9); Monocytes % 11.4 %; Neutrophils # 1.23 10^3/uL (1.8-7.7); Neutrophils % 51.9 %; Nucleated Red Blood Cells % 0 %; Platelet Count 187 10^3/cmm (130-400); Red Blood Count 4.03 10^6/uL (4.1-5.3); Red Cell Distribution Width 14.3 % (12.1-15.1); White Blood Count 2.4 10^3/uL (4.0-10.0)
[2022-08-21 13:31] LABS: Ferritin 95 ng/mL (15-150); Iron 27 ug/dL (37-145); Percent Saturation 11.2 % (20-50); Total Iron Binding Capacity 239 mcg/dl; Unsaturated Iron Binding 212 ug/dL (112-347)
== END 2022-08-28 23:59 | disposition home or self-care (01) ==
PROVIDERS: PCP Electrodiagnostic Medicine; Visit Provider Internal Medicine Hematology & Oncology
DX: D64.9 Anemia, unspecified (principal); D72.819 Decreased white blood cell count, unspecified; E07.9 Disorder of thyroid, unspecified; Z79.899 Other long term (current) drug therapy
CPT/HCPCS: 36415; 82728; 83540; 83550; 85025; 99214

== ENCOUNTER 2022-09-06 07:27 | Outpatient (CLI) | payer MEDICARE, SELFPAY ==
--- NOTE | 2022-09-06 08:01 | MM_ITS ---
WS: [id number] BILATERAL SCREENING DIGITAL TOMOSYNTHESIS MAMMOGRAM WITH CAD HISTORY: SCREENING COMPARISON: 08/15/2021 Bilateral CC and MLO views with tomosynthesis and synthetic mammography submitted. Computer aided det ection analyzed. Breast composition: The breasts are heterogeneously dense, which may obscure small masses. No suspici ous masses, microcalcifications or architectural distortion. Benign coarse calcification 12:00 LEFT b reast is probably degenerating fibroadenoma. There are a few additional scattered calcifications with in each breast. MM/[place] [id number] IMPRESSION: BI-RADS: 2-Benign FOLLOW UP: 1 Year Follow-up
== END 2022-09-06 07:28 | disposition home or self-care (01) ==
LOC: RAD 07:29
PROVIDERS: PCP Electrodiagnostic Medicine; Visit Provider Electrodiagnostic Medicine
DX: Z12.31 Encounter for screening mammogram for malignant neoplasm of breast (principal)
CPT/HCPCS: 77063; 77067

== ENCOUNTER 2022-12-26 14:30 | Oncology outpatient (recurring) (ONCR) | payer MEDICARE, SELFPAY ==
[2022-11-28 13:01] LABS: Eosinophils # 0.1 10^3/uL (0.0-0.8); Hemoglobin 10.6 g/dL (11.5-15.3); Lymphocytes # 0.8 10^3/uL (0.8-4.8); Lymphocytes % 30.9 %; Mean Corpuscular HGB Conc 31.2 g/dL (30.0-36.0); Mean Corpuscular Volume 86.5 fl (81-99); Mean Platelet Volume 10.7 fL (7.4-10.4); Monocytes # 0.3 10^3/uL (0.2-0.9); Monocytes % 11.4 %; Neutrophils # 1.36 10^3/uL (1.8-7.7); Neutrophils % 55.3 %; Nucleated Red Blood Cells % 0 %; Platelet Count 219 10^3/cmm (130-400); Red Blood Count 3.93 10^6/uL (4.1-5.3); Red Cell Distribution Width 14.4 % (12.1-15.1); White Blood Count 2.5 10^3/uL (4.0-10.0)
[2022-11-28 13:21] LABS: Ferritin 36 ng/mL (15-150); Iron 26 ug/dL (37-145); Percent Saturation 10.1 % (20-50); Total Iron Binding Capacity 256 mcg/dl; Unsaturated Iron Binding 230 ug/dL (112-347)
[2022-11-28 13:37] LABS: Vitamin B12 390 pg/mL (232-1245)
[2022-12-18] MEDS: cyanocobalamin 1,000 mcg/mL SDV 1000 MCG IM (14:34)
[2022-12-18] MEDS: sodium chloride 0.9% 250 ML 75 ML IV (14:35)
[2022-12-18] MEDS: iron sucrose 200 MG in sodium chloride 0.9% (100 ml) 100 ML 220 MG IV (14:35)
[2022-12-18 15:45] VITALS: BP 187/99; PULSE 93; RESP 17; TEMP 36.2; O2SAT 99
[2022-12-20 15:30] VITALS: BP 187/96; PULSE 79; RESP 18; TEMP 36.7; O2SAT 99
[2022-12-20] MEDS: iron sucrose 200 MG in sodium chloride 0.9% (100 ml) 100 ML 220 MG IV (15:44)
[2022-12-20 16:15] VITALS: BP 157/90; PULSE 96; RESP 18; TEMP 36.8; O2SAT 98
[2022-12-26 14:40] VITALS: BP 137/93; PULSE 67; RESP 18; TEMP 36.8; O2SAT 98
[2022-12-26] MEDS: iron sucrose 200 MG in sodium chloride 0.9% (100 ml) 100 ML 220 MG IV (15:02)
[2022-12-26] MEDS: sodium chloride 0.9% 250 ML 75 ML IV (15:02)
[2022-12-26 15:55] VITALS: BP 137/90; PULSE 67; RESP 18; TEMP 36.8; O2SAT 98
== END 2022-12-26 23:59 | disposition home or self-care (01) ==
PROVIDERS: PCP Electrodiagnostic Medicine; Visit Provider Internal Medicine Hematology & Oncology
DX: D50.9 Iron deficiency anemia, unspecified; K90.9 Intestinal malabsorption, unspecified; D51.9 Vitamin B12 deficiency anemia, unspecified; Z79.899 Other long term (current) drug therapy
CPT/HCPCS: 36415; 82607; 82728; 83540; 83550; 85025; 96365; 96372; 99214; J1756; J3420; J7050

== ENCOUNTER 2022-12-31 14:30 | Oncology outpatient (recurring) (ONCR) | payer MEDICARE, SELFPAY ==
[2022-12-28 08:50] VITALS: BP 154/87; PULSE 85; RESP 16; TEMP 35.7; O2SAT 99
[2022-12-28] MEDS: sodium chloride 0.9% 250 ML 75 ML IV (09:02)
[2022-12-28] MEDS: iron sucrose 200 MG in sodium chloride 0.9% (100 ml) 100 ML 220 MG IV (09:05)
[2022-12-28 10:10] VITALS: BP 156/85; PULSE 81; RESP 18; TEMP 36.2; O2SAT 96
[2022-12-31] MEDS: iron sucrose 200 MG in sodium chloride 0.9% (100 ml) 100 ML 220 MG IV (14:36)
[2022-12-31 14:41] VITALS: BP 149/80; PULSE 92; RESP 16; TEMP 35.9; O2SAT 93
[2022-12-31 15:12] VITALS: BP 145/93; PULSE 76; RESP 16; TEMP 36.5; O2SAT 99
== END 2023-01-25 23:59 | disposition home or self-care (01) ==
PROVIDERS: PCP Electrodiagnostic Medicine; Visit Provider Internal Medicine Hematology & Oncology
DX: D64.9 Anemia, unspecified (principal)
CPT/HCPCS: 96365; J1756; J7050

== ENCOUNTER 2023-01-30 13:19 | Oncology outpatient (recurring) (ONCR) | payer MEDICARE, SELFPAY ==
[2023-01-30 13:45] VITALS: BP 167/79; PULSE 86; RESP 18; TEMP 37; O2SAT 100
[2023-01-30 13:59] LABS: Basophils % 0.4 %; Eosinophils # 0.1 10^3/uL (0.0-0.8); Eosinophils % 2.1 %; Hematocrit 35.4 % (37.0-47.0); Hemoglobin 11.1 g/dL (11.5-15.3); Lymphocytes # 0.9 10^3/uL (0.8-4.8); Lymphocytes % 36.6 %; Mean Corpuscular HGB Conc 31.4 g/dL (30.0-36.0); Mean Corpuscular Hemoglobin 26.4 pg (28.0-34.0); Mean Corpuscular Volume 84.1 fl (81-99); Mean Platelet Volume 10.3 fL (7.4-10.4); Monocytes # 0.2 10^3/uL (0.2-0.9); Monocytes % 9.8 %; Neutrophils % 51.1 %; Nucleated Red Blood Cells % 0 %; Platelet Count 154 10^3/cmm (130-400); Red Blood Count 4.21 10^6/uL (4.1-5.3); Red Cell Distribution Width 16.8 % (12.1-15.1); White Blood Count 2.4 10^3/uL (4.0-10.0)
[2023-01-30 14:22] LABS: Ferritin 496 ng/mL (15-150); Iron 41 ug/dL (37-145); Percent Saturation 21.8 % (20-50); Total Iron Binding Capacity 188 mcg/dl; Unsaturated Iron Binding 147 ug/dL (112-347)
[2023-01-30 14:39] LABS: Vitamin B12 620 pg/mL (232-1245)
== END 2023-02-25 23:59 | disposition home or self-care (01) ==
PROVIDERS: PCP Electrodiagnostic Medicine; Visit Provider Internal Medicine Hematology & Oncology
DX: D64.9 Anemia, unspecified (principal); D70.9 Neutropenia, unspecified; Z79.899 Other long term (current) drug therapy
CPT/HCPCS: 36415; 82607; 82728; 83540; 83550; 85025; 99214

== ENCOUNTER 2023-04-15 15:25 | Outpatient (CLI) | payer MEDICARE, SELFPAY ==
--- NOTE | 2023-04-15 15:29 | XR_ITS ---
WS: [id number] DEXA (DUAL ENERGY X-RAY ABSORPTIOMETRY) Bone mineral density was performed using a Musiwave machine. HISTORY: Z78.0 COMPARISON: None available. Lumbar spine BMD (L1-L4): 1.0 T score: -1.8 Z score: 0.2 Total hip BMD: Left: 0.6. T score: -3.1 Z score: -1.2 Right: 0.6. T score: -3.6 Z score: -1.7 10 year probability of a major osteoporotic fracture is 31.1%. IMPRESSION: OSTEOPOROSIS based upon the WHO classification for females.
== END 2023-04-15 15:26 | disposition home or self-care (01) ==
PROVIDERS: PCP Electrodiagnostic Medicine; Visit Provider Nurse Practitioner Family
DX: Z78.0 Asymptomatic menopausal state (principal); M81.0 Age-related osteoporosis without current pathological fracture
CPT/HCPCS: 77080

== ENCOUNTER 2023-05-01 11:40 | Oncology outpatient (recurring) (ONCR) | payer MEDICARE, SELFPAY ==
[2023-05-01 11:53] VITALS: BP 149/89; PULSE 90; RESP 16; TEMP 36.7; O2SAT 97
[2023-05-01 12:12] LABS: Basophils % 0.5 %; Eosinophils # 0.1 10^3/uL (0.0-0.8); Eosinophils % 2.3 %; Lymphocytes # 0.7 10^3/uL (0.8-4.8); Lymphocytes % 29.4 %; Mean Corpuscular HGB Conc 32.4 g/dL (30-55); Mean Corpuscular Hemoglobin 28.1 pg (27-33); Mean Corpuscular Volume 86.6 fl (85-98); Mean Platelet Volume 10.6 fL (7.4-10.4); Monocytes # 0.3 10^3/uL (0.2-0.9); Monocytes % 11.3 %; Neutrophils # 1.25 10^3/uL (1.8-7.7); Neutrophils % 56.5 %; Nucleated Red Blood Cells % 0 %; Platelet Count 174 10^3/cmm (157-399); Red Blood Count 3.81 10^6/uL (3.85-5.65); Red Cell Distribution Width 14.4 % (12.1-15.1); White Blood Count 2.21 10^3/uL (3.29-11.43)
[2023-05-01 12:52] LABS: Ferritin 295 ng/mL (15-150); Iron 38 ug/dL (37-145); Percent Saturation 19.1 % (20-50); Total Iron Binding Capacity 198 mcg/dl; Unsaturated Iron Binding 160 ug/dL (112-347)
[2023-05-01 13:08] LABS: Vitamin B12 839 pg/mL (232-1245)
== END 2023-05-28 23:59 | disposition home or self-care (01) ==
PROVIDERS: Internal Medicine Medical Oncology; PCP Electrodiagnostic Medicine; Visit Provider Internal Medicine Hematology & Oncology
DX: D64.9 Anemia, unspecified (principal); D72.819 Decreased white blood cell count, unspecified; E53.8 Deficiency of other specified B group vitamins; D75.89 Other specified diseases of blood and blood-forming organs; Z79.899 Other long term (current) drug therapy
CPT/HCPCS: 36415; 82607; 82728; 83540; 83550; 85025; 99214

== ENCOUNTER 2023-05-29 13:28 | Oncology outpatient (recurring) (ONCR) | payer MEDICARE, SELFPAY ==
[2023-05-29 13:44] VITALS: BP 148/92; PULSE 92; RESP 16; TEMP 36.8; O2SAT 98
[2023-05-29 13:54] LABS: Basophils % 0.5 %; Hematocrit 33.1 % (36-47); Lymphocytes # 0.6 10^3/uL (0.8-4.8); Lymphocytes % 31.8 %; Mean Corpuscular HGB Conc 31.7 g/dL (30-55); Mean Corpuscular Volume 88.3 fl (85-98); Mean Platelet Volume 10.4 fL (7.4-10.4); Monocytes # 0.2 10^3/uL (0.2-0.9); Monocytes % 12.1 %; Neutrophils # 1.08 10^3/uL (1.8-7.7); Neutrophils % 54.6 %; Nucleated Red Blood Cells % 0 %; Platelet Count 165 10^3/cmm (157-399); Red Blood Count 3.75 10^6/uL (3.85-5.65); Red Cell Distribution Width 13.9 % (12.1-15.1); White Blood Count 1.98 10^3/uL (3.29-11.43)
[2023-05-29 14:29] LABS: Ferritin 235 ng/mL (15-150); Iron 30 ug/dL (37-145); Total Iron Binding Capacity 200 mcg/dl; Unsaturated Iron Binding 170 ug/dL (112-347)
[2023-05-29 14:45] LABS: Vitamin B12 1108 pg/mL (232-1245)
== END 2023-06-27 23:59 | disposition home or self-care (01) ==
PROVIDERS: PCP Electrodiagnostic Medicine; Visit Provider Internal Medicine Medical Oncology
DX: D64.9 Anemia, unspecified (principal); D72.819 Decreased white blood cell count, unspecified; E53.8 Deficiency of other specified B group vitamins; D75.89 Other specified diseases of blood and blood-forming organs; Z79.899 Other long term (current) drug therapy
CPT/HCPCS: 36415; 82607; 82728; 83540; 83550; 85025; 99214

== ENCOUNTER 2023-07-17 08:00 | Oncology outpatient (recurring) (ONCR) | payer MEDICARE, SELFPAY ==
[2023-07-01 12:57] VITALS: BP 153/96; PULSE 111; RESP 16; TEMP 35.8; O2SAT 99
[2023-07-01 13:25] LABS: Basophils % 0.4 %; Eosinophils % 0.9 %; Hematocrit 35.4 % (36-47); Lymphocytes # 0.6 10^3/uL (0.8-4.8); Lymphocytes % 25.5 %; Mean Corpuscular HGB Conc 31.1 g/dL (30-55); Mean Corpuscular Hemoglobin 27.4 pg (27-33); Mean Corpuscular Volume 88.3 fl (85-98); Monocytes # 0.2 10^3/uL (0.2-0.9); Monocytes % 9.5 %; Neutrophils # 1.46 10^3/uL (1.8-7.7); Neutrophils % 63.3 %; Nucleated Red Blood Cells % 0 %; Platelet Count 194 10^3/cmm (157-399); Red Blood Count 4.01 10^6/uL (3.85-5.65); Red Cell Distribution Width 13.8 % (12.1-15.1); White Blood Count 2.31 10^3/uL (3.29-11.43)
[2023-07-01 13:42] LABS: Ferritin 174 ng/mL (15-150); Iron 31 ug/dL (37-145); Percent Saturation 14.4 % (20-50); Total Iron Binding Capacity 215 mcg/dl; Unsaturated Iron Binding 184 ug/dL (112-347)
[2023-07-04 08:12] VITALS: BP 128/85; PULSE 100; RESP 16; TEMP 5337.2; TEMP 9639; O2SAT 97
[2023-07-04] MEDS: iron sucrose 200 MG in sodium chloride 0.9% (100 ml) 100 ML 220 MG IV (08:34)
[2023-07-04 09:11] VITALS: BP 115/74; PULSE 91; RESP 16; TEMP 36.1; O2SAT 97
[2023-07-08 14:59] VITALS: BP 146/90; PULSE 89; RESP 18; TEMP 36.2; O2SAT 97
[2023-07-08] MEDS: sodium chloride 0.9% 250 ML 75 ML IV (15:55)
[2023-07-08] MEDS: iron sucrose 200 MG in sodium chloride 0.9% (100 ml) 100 ML 220 MG IV (15:56)
[2023-07-08 16:24] VITALS: BP 134/79; PULSE 73; RESP 18; TEMP 36.8; O2SAT 98
[2023-07-11 09:19] VITALS: BP 118/78; PULSE 89; RESP 17; TEMP 36.6; O2SAT 99
[2023-07-11] MEDS: sodium chloride 0.9% 250 ML 75 ML IV (09:31)
[2023-07-11] MEDS: iron sucrose 200 MG in sodium chloride 0.9% (100 ml) 100 ML 220 MG IV (09:35)
[2023-07-11 10:30] VITALS: BP 118/71; PULSE 84; RESP 17; TEMP 36.6; O2SAT 97
[2023-07-15 08:36] VITALS: BP 135/84; PULSE 96; RESP 16; TEMP 36.6; O2SAT 100
[2023-07-15] MEDS: sodium chloride 0.9% 250 ML 75 ML IV (08:55)
[2023-07-15] MEDS: iron sucrose 200 MG in sodium chloride 0.9% (100 ml) 100 ML 220 MG IV (08:55)
[2023-07-17 08:08] VITALS: BP 131/77; PULSE 86; RESP 18; TEMP 36.8; O2SAT 98
[2023-07-17] MEDS: iron sucrose 200 MG in sodium chloride 0.9% (100 ml) 100 ML 220 MG IV (08:30)
[2023-07-17 09:10] VITALS: BP 131/74; PULSE 84; RESP 18; TEMP 36.4; O2SAT 98
== END 2023-07-28 23:59 | disposition home or self-care (01) ==
PROVIDERS: Internal Medicine Medical Oncology; PCP Electrodiagnostic Medicine; Visit Provider Nurse Practitioner Family
DX: D64.9 Anemia, unspecified (principal); Z53.9 Procedure and treatment not carried out, unspecified reason
CPT/HCPCS: 36415; 82728; 83540; 83550; 85025; 96365; 99214; J1756; J7050

== ENCOUNTER 2023-08-07 11:29 | Oncology outpatient (recurring) (ONCR) | payer MEDICARE, SELFPAY ==
[2023-08-01 12:05] VITALS: BP 147/89; PULSE 102; RESP 16; TEMP 36.7; O2SAT 97
[2023-08-01 12:14] LABS: Basophils % 0.5 %; Hematocrit 37.3 % (36-47); Lymphocytes # 0.7 10^3/uL (0.8-4.8); Mean Corpuscular HGB Conc 31.6 g/dL (30-55); Mean Corpuscular Volume 88.4 fl (85-98); Mean Platelet Volume 10.4 fL (7.4-10.4); Monocytes # 0.2 10^3/uL (0.2-0.9); Monocytes % 11.2 %; Neutrophils # 1.07 10^3/uL (1.8-7.7); Neutrophils % 54.3 %; Nucleated Red Blood Cells % 0 %; Platelet Count 159 10^3/cmm (157-399); Red Blood Count 4.22 10^6/uL (3.85-5.65); Red Cell Distribution Width 15.3 % (12.1-15.1); White Blood Count 1.97 10^3/uL (3.29-11.43)
[2023-08-01 12:38] LABS: Alanine Aminotransferase 14 U/L (0-33); Albumin Level 3.7 g/dL (3.5-5.2); Alkaline Phosphatase 83 U/L (35-105); Anion Gap 11.2 (5-19); Aspartate Amino Transferase 31 U/L (0-32); Blood Urea Nitrogen 10 mg/dL (8-23); Calcium 9.4 mg/dL (8.5-10.5); Carbon Dioxide 26 mmol/L (22-29); Chloride 105 mmol/L (98-107); Ferritin 879 ng/mL (15-150); Glucose 101 mg/dL (65-115); Iron 46 ug/dL (37-145); Osmolality Calculated 285 mOsm/kg (285-295); Percent Saturation 25.8 % (20-50); Potassium 4.2 mmol/L (3.5-5.1); Sodium 138 mmol/L (136-145); Total Bilirubin 0.2 mg/dL (0.15-1.2); Total Iron Binding Capacity 178 mcg/dl; Total Protein 7.7 g/dL (6.6-8.7); Unsaturated Iron Binding 132 ug/dL (112-347)
== END 2023-08-28 23:59 | disposition home or self-care (01) ==
LOC: LAB 11:29 → ONCMED 08-28 07:00
PROVIDERS: PCP Electrodiagnostic Medicine; Visit Provider Nurse Practitioner Family
DX: Z53.9 Procedure and treatment not carried out, unspecified reason
CPT/HCPCS: 36415; 80053; 82274; 82728; 83540; 83550; 85025; 99214

== ENCOUNTER 2023-09-02 11:04 | Oncology outpatient (recurring) (ONCR) | payer MEDICARE, SELFPAY ==
[2023-09-02 12:04] LABS: Basophils % 0.4 %; Eosinophils % 1.1 %; Hematocrit 36.8 % (36-47); Lymphocytes # 0.7 10^3/uL (0.8-4.8); Lymphocytes % 23.6 %; Mean Corpuscular HGB Conc 32.3 g/dL (30-55); Mean Corpuscular Volume 86.6 fl (85-98); Mean Platelet Volume 10.3 fL (7.4-10.4); Monocytes # 0.3 10^3/uL (0.2-0.9); Neutrophils # 1.73 10^3/uL (1.8-7.7); Neutrophils % 62.9 %; Nucleated Red Blood Cells % 0 %; Platelet Count 164 10^3/cmm (157-399); Red Blood Count 4.25 10^6/uL (3.85-5.65); Red Cell Distribution Width 14.7 % (12.1-15.1); White Blood Count 2.75 10^3/uL (3.29-11.43)
[2023-09-02 12:21] LABS: Alanine Aminotransferase 14 U/L (0-33); Albumin Level 3.7 g/dL (3.5-5.2); Alkaline Phosphatase 75 U/L (35-105); Anion Gap 11.1 (5-19); Aspartate Amino Transferase 35 U/L (0-32); Blood Urea Nitrogen 16 mg/dL (8-23); Calcium 10.6 mg/dL (8.5-10.5); Carbon Dioxide 26 mmol/L (22-29); Chloride 99 mmol/L (98-107); Globulin 4.2 g/dL (1.3-4.6); Glucose 115 mg/dL (65-115); Osmolality Calculated 276 mOsm/kg (285-295); Potassium 4.1 mmol/L (3.5-5.1); Sodium 132 mmol/L (136-145); Total Bilirubin 0.2 mg/dL (0.15-1.2); Total Protein 7.9 g/dL (6.6-8.7)
[2023-09-02 14:17] LABS: Ferritin 740 ng/mL (15-150); Iron 35 ug/dL (37-145); Percent Saturation 18.1 % (20-50); Total Iron Binding Capacity 193 mcg/dl; Unsaturated Iron Binding 158 ug/dL (112-347)
== END 2023-09-26 23:59 | disposition home or self-care (01) ==
PROVIDERS: PCP Electrodiagnostic Medicine; Visit Provider Nurse Practitioner Family
DX: D64.9 Anemia, unspecified; D72.819 Decreased white blood cell count, unspecified; E53.8 Deficiency of other specified B group vitamins; Z79.899 Other long term (current) drug therapy; M81.0 Age-related osteoporosis without current pathological fracture
CPT/HCPCS: 36415; 80053; 82728; 83540; 83550; 85025; 99214

== ENCOUNTER 2023-10-14 13:06 | Oncology outpatient (recurring) (ONCR) | payer MEDICARE, SELFPAY ==
[2023-10-14 13:39] LABS: Basophils % 0.4 %; Eosinophils % 0.8 %; Hematocrit 34.8 % (36-47); Lymphocytes # 0.8 10^3/uL (0.8-4.8); Mean Corpuscular HGB Conc 32.2 g/dL (30-55); Mean Corpuscular Hemoglobin 28.4 pg (27-33); Mean Corpuscular Volume 88.3 fl (85-98); Mean Platelet Volume 10.4 fL (7.4-10.4); Monocytes # 0.4 10^3/uL (0.2-0.9); Monocytes % 14.1 %; Neutrophils # 1.35 10^3/uL (1.8-7.7); Neutrophils % 52.7 %; Nucleated Red Blood Cells % 0 %; Platelet Count 166 10^3/cmm (157-399); Red Blood Count 3.94 10^6/uL (3.85-5.65); Red Cell Distribution Width 14.2 % (12.1-15.1); White Blood Count 2.56 10^3/uL (3.29-11.43)
[2023-10-14 14:01] LABS: Alanine Aminotransferase 13 U/L (0-33); Albumin Level 3.9 g/dL (3.5-5.2); Alkaline Phosphatase 91 U/L (35-105); Aspartate Amino Transferase 32 U/L (0-32); Blood Urea Nitrogen 21 mg/dL (8-23); Calcium 10.2 mg/dL (8.5-10.5); Carbon Dioxide 26 mmol/L (22-29); Chloride 96 mmol/L (98-107); Globulin 3.6 g/dL (1.3-4.6); Glucose 79 mg/dL (65-115); Osmolality Calculated 272 mOsm/kg (285-295); Sodium 130 mmol/L (136-145); Total Bilirubin 0.2 mg/dL (0.15-1.2); Total Protein 7.5 g/dL (6.6-8.7)
[2023-10-14 14:12] LABS: Anion Gap 12.2 (5-19); Potassium 4.2 mmol/L (3.5-5.1)
== END 2023-10-27 23:59 | disposition home or self-care (01) ==
PROVIDERS: PCP Electrodiagnostic Medicine; Visit Provider Nurse Practitioner Family
DX: D72.819 Decreased white blood cell count, unspecified
CPT/HCPCS: 36415; 80053; 85025

== ENCOUNTER 2023-12-10 09:52 | Inpatient (IN) | payer MEDICARE, SELFPAY ==
[2023-12-10] VITALS (78 sets, daily range): BP systolic 53–143; BP diastolic 31–86; PULSE 66–125; RESP 16–43; TEMP 35.1–37.6; O2SAT 83–100; BMI 21.9
--- NOTE | 2023-12-10 09:55 | ECG_ITS ---
[facility] Test Date: 2023-12-10 Pat Name: Clare Stovall Department: Room: Gender: Female Chronic Disease Manager: : 1950 Requested By: Geronimo Alberts Order Number: [id number] Matias MD: Apollo Oneal M.D. Measurements Intervals [place] Rate: 61 P: 58 HI: 144 QRS: 67 QRSD: 83 T: 75 QT: 435 QTc: 438 Interpretive Statements SINUS RHYTHM POSSIBLE LEFT ATRIAL ENLARGEMENT [-0.1mV P-WAVE IN V1/V2] Compared to ECG 03/06/2021 15:12:09 Sinus tachycardia no longer present Electronically Signed On 12-10-2023 17:47:45 CDT by Apollo Oneal M.D. [id number]
--- NOTE | 2023-12-10 09:55 | XRR_ITS ---
PROCEDURE INFORMATION: Exam: XR Chest Exam date and time: 12/10/2023 10:28 AM Age: 73 years old Clinical indication: Cough and dyspnea; Additional info: Dyspnea/cough TECHNIQUE: Imaging protocol: Radiologic exam of the chest. Views: 1 view. COMPARISON: CR XR chest 1V portable [id number] 03/06/2021 11:44 AM FINDINGS: Lungs: Mild chronic hypoventilatory changes at the left lung base. Pleural spaces: Unremarkable. No pleural effusion. No pneumothorax. Heart/Mediastinum: Unremarkable. No cardiomegaly. Bones/joints: Unremarkable. XR/XR chest 1V portable [id number] IMPRESSION: No acute cardiopulmonary disease.
--- NOTE | 2023-12-10 10:02 | PC.PHAR ---
VERIFIED WITH [facility]. 3 MEDICATIONS AND FILL DATES. FERROUS SULFATE AND MULTIVITAMIN NOT ON THEIR RECORDS.
[2023-12-10] MEDS: norepinephrine 4 MG/250 ML BAG 30 MG IV (10:03)
--- NOTE | 2023-12-10 10:05 | ECG_ITS ---
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 Measurements Intervals [place] Rate: 68 P: 76 MS: 144 QRS: 74 QRSD: 87 T: 78 QT: 441 QTc: 472 Interpretive Statements SINUS RHYTHM WITH SINUS ARRHYTHMIA POSSIBLE LEFT ATRIAL ENLARGEMENT [-0.1mV P-WAVE IN V1/V2] Compared to ECG 03/06/2021 15:12:09 Sinus tachycardia no longer present Electronically Signed On 12-10-2023 17:47:39 CDT by Apollo Oneal M.D. [id number]
[2023-12-10 10:07] LABS: ABG PCO2 37.1 mmHg (35-45); ABG PH Result 7.32 (7.35-7.45); Alveolar-Arterial Oxygen Gradi 0.8 mmHg (5-10); Arterial Blood Gas Hematocrit 35.6 % (37-47); Base Excess ABG -6.4 mmol/L (-2.0-2.0); Blood Gas Allen Test Pos; Blood Gas Operator Identificat WALCI; Blood Gas Sample Site Brachial, left; Blood Gas Sample Type Arterial; Carboxyhemoglobin 0.8 %THgb (0.4-20.1); HCO3 ABG 19.1 mmol/L (22-26); HGB O2 Sat 96.3 % (95-100); Ionized Calcium Level - ABG 1.3 mmol/L (1.1-1.4); Methemoglobin 0.2 % (0.4-1.5); Oxygen Device NC; Oxygen Saturation ABG 97.3; PO2 ABG 94.9 mmHg (80.0-100.0); Potassium Level - ABG 3.2 mmol/L (3.5-5.0); Total Hemoglobin 11.6 g/dL (12-16)
[2023-12-10 10:08] LABS: Basophils % 0.6 %; Eosinophils % 1.7 %; Hematocrit 41.3 % (36-47); Lymphocytes % 58.4 %; Mean Corpuscular HGB Conc 32.2 g/dL (30-55); Mean Corpuscular Hemoglobin 28.2 pg (27-33); Mean Corpuscular Volume 87.5 fl (85-98); Mean Platelet Volume 10.8 fL (7.4-10.4); Monocytes # 0.1 10^3/uL (0.2-0.9); Neutrophils % 35.3 %; Nucleated Red Blood Cells % 0 %; Platelet Count 229 10^3/cmm (157-399); Red Blood Count 4.72 10^6/uL (3.85-5.65); Red Cell Distribution Width 13.5 % (12.1-15.1); White Blood Count 1.73 10^3/uL (3.29-11.43)
--- NOTE | 2023-12-10 10:09 | ED_ITS ---
HPI - General Adult 2 General: Chief complaint: Syncope Stated complaint: Gen weakness, Syncope Time Seen by Provider: 12/10/23 09:55 Source: patient Mode of arrival: EMS History of Present Illness: 73-year-old female who presents to the e mergency room after an episode while she was at work where she syncopized. Bystanders performed CPR on 2 separate occasions the length of time is unknown. She is awake but somewhat lethargic when she arrives here she is able to give a fairly decent history. She denies any history of heart disease which is correlated in her chart. She denies any chest pain or abdominal pain. She states these episodes happened after she had stood up she felt lightheaded and dizzy and felt like she was going to pass out and she indeed did. She was profoundly hypotensive on arrival in the emergency room with blood pressures in the 60s and 70s systolic initially. She denies any recent fever sweats or chills dysuria urgency or frequency no chest or abdominal pain. Reviewing her chart she has a history of leukopenia and anemia as she has had a extensive workup for these including bone marrow biopsies did not show any bone marrow dysfunction. They have treated her with iron infusions in the past. She is also received blood transfusion multiple times. She did have an admission previously for anaphylaxis after bee sting. She also had a history of tickborne illness in the past on arrival here she was noted to have a tick in the right axilla however it was removed it was not attached and there is no rash or bull's-eye lesion noted. EKG done in the field did not show any acute ST changes. Patient did receive 400 mL of fluid prior to arrival. Blood pressure was 77 systolic initially. Her oxygen saturation initially was difficult to track and she was placed on 2 L were later able to get a good track with a forehead probe. There is no evidence of trauma to the head neck chest or abdomen. Patient denies any pain to her head or neck she does complain of some low back pain however she states this has been chronic Onset (ago): minute(s) Associated symptoms: Deny chest pain, confusion, cough, diaphoresis, decreased appetite, dyspnea, fevers/chills, headache(s), malaise, nausea, rash, palpitations, seizures, short of breath, syncope, vomiting or weakness Review of Systems 2 Const: Denies: fever(s), chills, malaise or diaphoresis Card: Denies: chest pain, palpitations or syncope Resp: Denies: dyspnea GI: Denies: abdominal pain, nausea or vomiting : Denies: dysuria, urinary frequency or urinary urgency Musc: Denies: neck pain or back pain Skin/Breast: Denies: rash Neuro: Denies: headache(s) or confusion PFSH ED 2 PFSH: Medical History (Updated 12/10/23 @ 14:28 by Geronimo Kirby DO) Esophageal hiatal hernia History of tularemia treated in 2020; at time had mass in neck that was biopsied twice with findings of necrotic tissue, mass resolved with treatment of disease Renal cyst, left Hypertension Osteoporosis on alendronate, DEXA 03/2023 Leukopenia Followed at Hem/Onc, has had workup with inconclusive findings, suspicion is that she has MDS in 08/2023 Anemia Gets venofer infusions at times and had B12 supplementation in 11/2022 History of microcytic hypochromic anemia Surgical History (Updated 12/10/23 @ 13:04 by Mae Galarza MD) History of bone marrow biopsy 07/2021 normal to mildly hypercellular bone marrow with trilineage hematopoesis, no overt dyspoietic or megaloblastic changes seen, FISH for MDS was unremarkable History of colonoscopy 02/2019 unremarkable History of esophagogastroduodenoscopy (EGD) 02/2019 moderate chronic patchy gastritis History of 3 sections Family History Father Lung cancer Other Cancer Dementia Hypertension Stroke Denies family history of Diabetes CAD (coronary artery disease) Clotting disorder Hyperlipidemia Psychiatric illness Suicide Anesthesia complication Bleeding disorder Lung disease Social History Smoking and tobacco/nicotine status: never used tobacco/nicotine Alcohol intake: never Substance/Drug Use: never Physical Exam 2 Const: GENERAL APPEARANCE: lethargic NUTRITIONAL APPEARANCE: thin O RIENTATION/CONSCIOUSNESS: Yes oriented to person, Yes oriented to place, Yes oriented to time and Yes lethargic HENMT: COMMON NORMALS: normocephalic, atraumatic and hearing grossly normal bilaterally HEAD & SCALP: normocephalic and atraumatic Resp: COMMON NORMALS: normal respiratory effort, No retractions, No use of accessory muscles and clear to auscultation bilaterally AUSCULTATION: clear to auscultation bilaterally Cardio: COMMON NORMALS: regular rate, regular rhythm and No murmurs present (Cardio) RATE: regular rate RHYTHM: regular rhythm GI: COMMON NORMALS: Soft to palpation and No hepatosplenomegaly present A USCULTATION: Yes normoactive bowel sounds PALPATION: Yes Soft to palpation, No Tenderness to palpation present (GI), No Guarding due to palpation present (GI) and Yes No hepatosplenomegaly present Extremity: COMMON NORMALS: normal to inspection, capillary refill normal, no clubbing, cyanosis or edema, no calf tenderness and no pedal edema OTHER: Femoral pulses are equal bilaterally Neuro: SENSORIUM/ORIENTATION: Yes oriented to person, Yes oriented to place, Yes oriented to time and Yes lethargic Skin: COMMON NORMALS: no rashes or lesions noted GENERAL SKIN EXAM: no rashes or lesions noted Course 2 Vital Signs: Vital signs: Vital Signs Temperature 97.6 F 12/10/23 09:52 Pulse Rate 67 12/10/23 11:30 Respiratory Rate 20 H 12/10/23 09:52 Blood Pressure 67/42 12/10/23 11:30 Pulse Oximetry 94 12/10/23 11:30 Oxygen Delivery Me thod Nasal Cannula 12/10/23 11:30 Oxygen Flow Rate 1 12/10/23 11:30 MDM - General Adult Medical Decision Making Patient arrives reportedly postcode bystanders had done CPR 2 rounds no cardiopulmonary arrest was witnessed by EMS she is significantly hypotensive on arrival. She is awake and alert and actually able to give a relatively good history. During course of exam found a tick in her right axilla that was not attached no sign of a rash. She has known history of leukopenia and anemia. This was present as well today or leukopenia is more pronounced than it has been in the past she does meet septic shock criteria. Patient was given fluid bolus started on IV antibiotics we subsequently added doxycycline to cover as further ticks were found embedded in her feet. She was given Vanco mycin and Zosyn initially as part of sepsis treatment. She had persistent hypotension was very profound initially the Levophed was started after fluid boluses we are not able to titrate off infective ultimately ended up titrating up and adding vasopressin as well and adding secondary fluid boluses because of her poor urinary output. EKG did not show any acute changes. A CT showed some nonspecific changes with significant amount of fluid distention in the stomach including an intrathoracic stomach from a hiatal hernia. There is also some small bowel enteritis because of her persistent nausea and vomiting we did place an NG tube. Discussed with the hospitalist will admit to the ICU she is currently on Levophed and vasopressin antibiotics has been started monitoring urinary output she has been given multiple fluid boluses as well cultures have been done as well. Medical Records I reviewed the patient's medical records. Lab Data I reviewed the patient's lab results. 12/10/23 09:38 12/10/23 09:38 Radiology Impressions Chest X-Ray 12/10/23 09:55 IMPRESSION: No acute cardiopulmonary disease. Abdomen/Pelvis CT 12/10/23 10:25 IMPRESSION: 1. Extensive sigmoid diverticulosis. No evidence of acute diverticulitis. 2. Fluid distended mid and distal small bowel loops with air and fluid in the colon. No visualized distal obstruction. Sigmoid constipation. 3. Diffuse thickening of jejunal small bowel loops in the LEFT upper quadrant suspicious for small bowel enteritis. 4. Large esophageal hiatal hernia with partial intrathoracic stomach with fluid distention and air-fluid levels. 5. Cholelithiasis. Gallbladder is contracted. Laboratory Results WBC 1.73 10^3/uL (3.29-11.43) L 12/10/23 09:38 RBC 4.72 10^6/uL (3.85-5.65) 12/10/23 09:38 Hgb 13.30 g/dL (11.27-16.99) 12/10/23 09:38 Hct 41.3 % (36-47) 12/10/23 09:38 MCV 87.5 fl (85-98) 12/10/23 09:38 MCH 28.2 pg (27-33) 12/10/23 09:38 MCHC 32.2 g/dL (30-55) 12/10/23 09:38 RDW 13.5 % (12.1-15.1) 12/10/23 09:38 Plt Count 229 10^3/cmm (157-399) 12/10/23 09:38 MPV 10.8 fL (7.4-10.4) H 12/10/23 09:38 Neut % (Auto) 35.3 % 12/10/23 09:38 Lymph % (Auto) 58.4 % 12/10/23 09:38 [place] % (Auto) 4.0 % 12/10/23 09:38 Eos % (Auto) 1.7 % 12/10/23 09:38 Baso % (Auto) 0.6 % 12/10/23 09:38 Neut # (Auto) 0.61 10^3/uL (1.8-7.7) L* 12/10/23 09:38 Lymph # (Auto) 1.0 10^3/uL (0.8-4.8) 12/10/23 09:38 [place] # (Auto) 0.1 10^3/uL (0.2-0.9) L 12/10/23 09:38 Eos # (Auto) 0.0 10^3/uL (0.0-0.8) 12/10/23 09:38 Baso # (Auto) 0.0 10^3/uL (0.0-0.1) 12/10/23 09:38 Nucleated RBC % (auto) 0 % 12/10/23 09: Nucleated RBCs # 0.0 /100WBC 12/10/23 09:38 Specimen Type Arterial 12/10/23 12:13 Sample Site Brachial, left 12/10/23 12:13 ABG pH 7.26 (7.35-7.45) L 12/10/23 12:13 ABG pCO2 29.8 mmHg (35-45) L 12/10/23 12:13 ABG pO2 81.6 mmHg (80.0-100.0) 12/10/23 12:13 ABG PO2/FiO2 Ratio 0 12/10/23 12:13 ABG HCO3 13.4 mmol/L (22-26) L 12/10/23 12:13 ABG O2 Saturation 95.0 12/10/23 12:13 ABG Base Excess -12.3 mmol/L (-2.0-2.0) L 12/10/23 12:13 [place] Test Pos 12/10/23 12:13 A-a O2 Gradient 3.6 mmHg (5-10) L 12/10/23 12:13 Hematocrit 39.8 % (37-47) 12/10/23 12:13 Hgb O2 Saturation 93.3 % (95-100) L 12/10/23 12:13 Carboxyhemoglobin 1.0 %THgb (0.4-20.1) 12/10/23 12:13 Methemoglobin 0.8 % (0.4-1.5) 12/10/23 12:13 Total Hemoglobin 13.0 g/dL (12-16) 12/10/23 12:13 Sodium 140.0 mmol/L (131-143) 12/10/23 12:13 Potassium 3.4 mmol/L (3.5-5.0) L 12/10/23 12:13 Glucose 178.0 mg/dL (70-115) H 12/10/23 12:13 Ionized Calcium 1.2 mmol/L (1.1-1.4) 12/10/23 12:13 O2 Delivery Device Room air 12/10/23 12:13 O2 Liters/Min 2.0 % 12/10/23 09:56 FiO2 21.0 % 12/10/23 12:13 Hotbed Lever Operator ID [place] 12/10/23 12:13 Sodium 140 mmol/L (136-145) 12/10/23 09:38 Potassium 3.6 mmol/L (3.5-5.1) 12/10/23 09:38 Chloride 108 mmol/L (98-107) H 12/10/23 09:38 Carbon Dioxide 20 mmol/L (22-29) L 12/10/23 09:38 Anion Gap 15.6 (5-19) 12/10/23 09:38 BUN 18 mg/dL (8-23) 12/10/23 09:38 Creatinine 1.2 mg/dL (0.5-0.9) H 12/10/23 09:38 GFR Calculation Not Reportable 12/10/23 09:38 Glucose 85 mg/dL (65-115) 12/10/23 09:38 Calculated Osmolality 291 mOsm/kg (285-295) 12/10/23 09:38 Lactic Acid 2.5 mmol/L (0.5-2.2) H 12/10/23 10:18 Calcium 10.0 mg/dL (8.5-10.5) 12/10/23 09:38 Phosphorus 2.7 mg/dL (2.5-4.5) 12/10/23 11:07 Magnesium 2.0 mg/dL (1.7-2.3) 12/10/23 11:07 Total Bilirubin 0.2 mg/dL (0.15-1.2) 12/10/23 09:38 AST 34 U/L (0-32) H 12/10/23 09:38 ALT 22 U/L (0-33) 12/10/23 09:38 Alkaline Phosphatase 114 U/L (35-105) H 12/10/23 09:38 Creatine Kinase 37 U/L (26-192) 12/10/23 09:38 Troponin T Baseline 8 ng/L (0-10) 12/10/23 09:38 Troponin T 120 Minute 8.18 ng/L (0-10) 12/10/23 11:17 Delta Troponin T 0.18 ABS# (0-10) 12/10/23 11:17 NT-Pro-B Natriuret Pep 213 pg/mL (0-450) 12/10/23 11:07 Total Protein 8.0 g/dL (6.6-8.7) 12/10/23 09:38 Albumin 3.6 g/dL (3.5-5.2) 12/10/23 09:38 Globulin 4.4 g/dL (1.3-4.6) 12/10/23 09:38 Lipase 73 U/L (13-60) H 12/10/23 09:38 All radiology interpretation(s) finalized by discharge Critical Care Time 2 Critical Care Time: Critical Care Time: Yes Total Critical Care Time: 40 Attestation: The high probability of a clinically significant, sudden or life threatening deterioration of the patient's cardiovascular renal endocrine system(s) required my full and direct attention, intervention and personal management. The critical care time is as shown. This time is in addition to time spent performing any reported procedures but includes the following: [x] Data and vital sign review and interpretation [x] Patient assessment, examination and intervention [x] Documentation [x] Medication orders and management Discharge Plan Discharge Patient Disposition: Admitted As Inpatient Admit Provider: Mae Galarza Clinical Impression: Septic shock, Acute kidney injury, Anemia, Leukopenia, Tick bites, Cardiopulmonary arrest Condition: Stable Coding Level of Care Code ED Bakery Technician for Tasneem Pratt
[2023-12-10 10:15] LABS: Neutrophils # 0.61 10^3/uL (1.8-7.7)
--- NOTE | 2023-12-10 10:25 | CT_ITS ---
WS: [id number] CT ABDOMEN PELVIS TECHNIQUE: Noncontrast CT of the abdomen and pelvis with coronal and sagittal reformatted images. CLINICAL INFORMATION: Abdominal pain COMPARISON: CT 2020 DLP: 365.[address] scans at [facility] use at least one of these dose optimization techniques: automated e xposure control; mA and/or kV adjustment per patient size (includes targeted exams where dose is matc hed to clinical indication); or iterative reconstruction. FINDINGS: Fluid distended partial intrathoracic stomach with air-fluid level in the intrathoracic hernia and radha dy of the stomach. Normal noncontrast liver. Gallbladder is contracted. Cholelithiasis. Splenic arter y calcifications. Noncontrast pancreas appears normal. Adrenal glands are normal. No hydronephrosis i n the kidney. LEFT renal cyst. Normal caliber abdominal aorta. Bean catheter. Bladder is decompressed. Small calcified uterine fibroid. Extensive sigmoid diverticu losis. No evidence of acute diverticulitis mild sigmoid constipation. LEFT adnexal cyst unchanged com pared to previous measuring 4.0 x 3.9 cm. Fluid distended colon with air-fluid levels. Fluid distended distal small bowel with air-fluid level s. Diffuse thickening with enhancement of jejunal small bowel loops in the LEFT upper quadrant suspic ious for small bowel enteritis. Moderate spondylitic changes lumbar spine. Prominent bilateral inguinal and femoral lymph nodes likely reactive. CT/CT abdomen pelvis wo con [id number] IMPRESSION: 1. Extensive sigmoid diverticulosis. No evidence of acute diverticulitis. 2. Fluid distended mid and distal small bowel loops with air and fluid in the colon. No visualized distal obstruction. Sigmoid constipation. 3. Diffuse thickening of jejunal small bowel loops in the LEFT upper quadrant suspicious for small bowel enteritis. 4. Large esophageal hiatal hernia with partial intrathoracic stomach with flui d distention and air-fluid levels. 5. Cholelithiasis. Gallbladder is contracted.
[2023-12-10 10:27] LABS: Alanine Aminotransferase 22 U/L (0-33); Albumin Level 3.6 g/dL (3.5-5.2); Alkaline Phosphatase 114 U/L (35-105); Anion Gap 15.6 (5-19); Aspartate Amino Transferase 34 U/L (0-32); Blood Urea Nitrogen 18 mg/dL (8-23); Carbon Dioxide 20 mmol/L (22-29); Chloride 108 mmol/L (98-107); Creatine Phosphokinase 37 U/L (26-192); Creatinine Clr Calc Pharmacy 33.1451; Globulin 4.4 g/dL (1.3-4.6); Glucose 85 mg/dL (65-115); Lipase 73 U/L (13-60); Magnesium 2.1 mg/dL (1.7-2.3); Osmolality Calculated 291 mOsm/kg (285-295); Potassium 3.6 mmol/L (3.5-5.1); Sodium 140 mmol/L (136-145); Total Bilirubin 0.2 mg/dL (0.15-1.2)
[2023-12-10 10:28] LABS: Troponin(5th) Baseline 8 ng/L (0-10)
[2023-12-10] MEDS: piperacillin-tazobactam 3.375 GM in sodium chloride 0.9% (plus) 50 ML IV (10:39)
[2023-12-10] MEDS: vancomycin 1,000 MG in sodium chloride 0.9% 250 ML 250 MG IV (10:40)
[2023-12-10] MEDS: sodium chloride 0.9% 1,632.93 ML 1632.93000000000006 ML IV (10:40)
[2023-12-10] MEDS: metoclopramide 5 mg/mL SDV 2 mL 10 MG IVP (10:58)
[2023-12-10 11:03] LABS: Lactic Sepsis W/Reflex 2.5 mmol/L (0.5-2.2)
[2023-12-10 11:43] LABS: Troponin 5 2HR 8.18 ng/L (0-10); Troponin 5 2HR Delta 0.18 ABS# (0-10)
--- NOTE | 2023-12-10 11:56 | ECG_ITS ---
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 Measurements Intervals [place] Rate: 81 P: 70 [place]: 154 QRS: 46 QRSD: 72 T: 77 QT: 381 QTc: 443 Interpretive Statements SINUS RHYTHM POSSIBLE LEFT ATRIAL ENLARGEMENT [-0.1mV P-WAVE IN V1/V2] LOW QRS VOLTAGE IN EXTREMITY LEADS [QRS DEFLECTION < 0.5 mV IN LIMB LEADS] POSSIBLE ANTERIOR MYOCARDIAL INFARCTION , OF INDETERMINATE AGE [30 ms Q WAVE IN V3/V4, OR R < 0.2 mV IN V4] Compared to ECG 12/10/2023 10:05:33 Low QRS voltage now present Myocardial infarct finding now present Sinus arrhythmia no longer present Electronically Signed On 12-10-2023 17:49:04 CDT by Apollo Oneal M.D. [email or web address]
[2023-12-10] MEDS: sodium chloride 0.9% 1,000 ML 999 ML IV ×2 (12:00→17:48)
[2023-12-10] MEDS: doxycycline 100 MG in sodium chloride 0.9% (plus) 100 ML IV ×2 (12:04→22:38)
[2023-12-10] MEDS: vasopressin 40 UNIT/100 ML PREMIX 4.5 UNIT IV ×2 (12:04→17:48)
--- NOTE | 2023-12-10 12:05 | USCV_ITS ---
Stovall Clare Age: 73 Gender: F : 1950 Exam Date: 12/10/2023 14:21 Ordering Phys: Geronimo Kirby DO Technologist: [place] [facility] [place]: hypotension BP: 95 / 65 HR: 78 Rhythm: Sinus Technical Quality: Adequate MEASUREMENTS (Male / Female) Normal Values 2D ECHO LV Diastolic Diameter PLAX 2.2 cm 4.2 - 5.9 / 3.9 - 5.3 cm IVS Diastolic Thickness 1.7 cm 0.6 - 1.0 / 0.6 - 0.9 cm IVS Systolic Thickness 1.6 cm LVPW Diastolic Thickness 1.6 cm 0.6 - 1.0 / 0.6 - 0.9 cm LVPW Systolic Thickness 1.4 cm LVOT Diameter 2.0 cm LV Ejection Fraction 2D Teich 83.9 % LV Ejection Fraction MOD 2C 75.0 % LV Ejection Fraction 2C AL 75.0 % LA Diameter 2.2 cm RA Systolic Volume 4C AL 39.6 ml RA Systolic Volume 4C MOD 40.7 ml Aorta at Sinotubular Diameter 2.3 cm M-MODE LA Ao Ratio MM 1.3 AV Cusp Separation MM 1.7 cm DOPPLER AV Peak Velocity 210.0 cm/s MV Peak Velocity 174.0 cm/s MV Area PHT 1.5 cm squared Mitral E to A Ratio 1.5 TV Peak Velocity 324.0 cm/s TR Peak Velocity 360.0 cm/s TR Peak Gradient 51.8 mmHg PV Peak Velocity 90.0 cm/s FINDINGS Left Ventricle Left ventricle is normal size. LV systolic function is normal with EF of 60 to 65%. No regional wall motion abnormalities are seen. Moderate to severe left ventricular hypertrophy seen. Grade 1 diastolic dysfunction Right Ventricle Normal in size and function Right Atrium Normal in size Left Atrium Normal in size Mitral Valve Structurally normal mitral valve. Mild mitral regurgitation. Aortic Valve Structurally normal aortic valve. No significant stenosis. Tricuspid Valve Insufficient TR jet to calculate RVSP Pulmonic Valve Not well-visualized. Pericardium Normal Aorta Normal in size IVC Appears to be normal CONCLUSIONS LV systolic function is normal with EF of 60-65%. Moderate to severe left ventricular hypertrophy Grade 1 diastolic dysfunction Mild mitral regurgitation No comparison studies are available. Apollo Oneal MD (Electronically Signed) Final Date: 11 Dec 2023 10:45 S
[2023-12-10] MEDS: ondansetron 2 mg/ML SDV 2 mL 4 MG IVP (12:12)
--- NOTE | 2023-12-10 12:12 | PM.HP ---
Providers/Chief Complaint Admitting Physician: Mae Galarza MD Primary Care Provider: Shade Duval DO Chief Complaint: Gen weakness, Syncope History of Present Illness Clare Stovall is a 73 year old female who presented to the emergency room after passing out at work today. She does not recall the details but from information available she was feeling okay this morning. She was sitting down and went to stand up and became dizzy and passed out. It sounds like she lost consciousness. Those who were near her did not notice her breathing nor feel a pulse and started CPR. She came to a short time later only to subsequently again look like she was not breathing and did not have a pulse. She received a second round of CPR. When EMS arrived Mrs. Stovall was awake and able to answer questions. She had a pulse and was breathing spontaneously but blood pressure was very low. Upon arrival to the emergency room her systolic pressures were in the 50s. She was given IV fluids and subsequently put on pressor support. Initial evaluation was focused on post arrest. Twelve-lead EKG did not show any acute ST segment changes. Initial cardiac enzymes were unremarkable. Mrs. Stovall has a history of hypertension but no other cardiovascular diagnoses. She has had some issues with anemia and leukopenia and has been evaluated by hematology/oncology over the last couple of years. White count today was found to be lower than it has ever been at 1.73 with an absolute neutrophil count of 610. Also identified was metabolic acidosis with lactic acid at 2.5 and acute kidney injury. She received additional fluids and was given empiric antibiotics to include vancomycin, Zosyn and doxycycline. ER provider removed a tick from her and she has had some tick bites. After being in the ER for a while patient started to have some nausea and vomiting. Vomitus consisted of the breakfast burrito from [employer] that she had this morning and bilious fluid. Hospitalist were contacted for admission. Additional pressor support had to be added for persistent hypertension. In talking with Mrs. Stovall she was feeling fine yesterday and even this morning when she got up. No specific complaints to note. She denies any headaches, vision changes, neck pain, fever, sore throat, runny nose, cough or shortness of breath, chest pain, abdominal pain. She has chronic constipation with her last bowel movement a couple of days ago which is her usual pattern. She is generally active going to a fitness center 3 times a week. She saw both of her sons that live here locally yesterday. One of them she saw at lunchtime and was doing well. The other when she saw yesterday evening. They walked around the yard before the rain came and sat on the porch for a while. She seemed like her normal self and was doing good. No issues reported overnight. She has never had a similar episode to this degree previously. When she had been identified as having leukopenia some years ago she had had multiple bee stings. 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 Laboratory workup showed abnormalities that subsequently identified tularemia for which she received treatment. She has had persistent leukopenia and neutropenia since then with extensive workup that has thus far been unrevealing for cause. 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 When she was last seen at the heme-onc clinic recommendation was for consideration of a repeat bone marrow biopsy which she has been thinking about. No new medications to report. She did take her medicines today. These do include amlodipine and lisinopril. Review of Systems General: Reports: Other (ROS as per HPI or as otherwise noted here) Medications/Allergies Home Medications Medication Instructions Recorded Confirmed Last Taken Type multivitamin 1 tab PO DAILY 05/18/22 12/10/23 Unknown History ferrous sulfate 325 mg (65 mg 325 mg PO DAILY 05/29/23 12/10/23 Unknown History iron) tablet (Feosol) alendronate 70 mg tablet 70 mg PO .weekly 09/02/23 12/10/23 Unknown History amlodipine 10 mg tablet 10 mg PO QPM 12/10/23 12/10/23 Unknown History lisinopril 40 mg tablet 40 mg PO DAILY 12/10/23 12/10/23 Unknown History Allergies Allergy/AdvReac Type Severity Reaction Status Date / Time insect venom Allergy anaphylaxis Verified 09/02/23 13:12 PFSH Acute PFSH: Medical History (Updated 12/10/23 @ 13:30 by Mae Galarza MD) Esophageal hiatal hernia History of tularemia treated in 2020; at time had mass in neck that was biopsied twice with findings of necrotic tissue, mass resolved with treatment of disease Renal cyst, left Hypertension Osteoporosis on alendronate, DEXA 03/2023 Leukopenia Followed at Hem/Onc, has had workup with inconclusive findings, suspicion is that she has MDS in 08/2023 Anemia Gets venofer infusions at times and had B12 supplementation in 11/2022 History of microcytic hypochromic anemia Surgical History (Updated 12/10/23 @ 13:04 by Mae Galarza MD) History of bone marrow biopsy 07/2021 normal to mildly hypercellular bone marrow with trilineage hematopoesis, no overt dyspoietic or megaloblastic changes seen, FISH for MDS was unremarkable History of colonoscopy 02/2019 unremarkable History of esophagogastroduodenoscopy (EGD) 02/2019 moderate chronic patchy gastritis History of 3 sections Family History Father Lung cancer Other Cancer Dementia Hypertension Stroke Denies family history of Diabetes CAD (coronary artery disease) Clotting disorder Hyperlipidemia Psychiatric illness Suicide Anesthesia complication Bleeding disorder Lung disease Social History Smoking and tobacco/nicotine status: never used tobacco/nicotine Alcohol intake: never Substance/Drug Use: never Other [facility] information: Supplemental [facility] Information: 2 sons live locally and see her regularly Vitals/I&O/Wt Last Vital Signs Temp 97.6 F 12/10/23 09:52 Pulse 75 12/10/23 09:52 Resp 20 H 12/10/23 09:52 BP 77/52 12/10/23 09:52 Pulse Ox 100 12/10/23 09:52 O2 Del Method Room Air 12/10/23 09:52 12/09/23 12/10/23 12/10/23 22:59 06:59 14:59 Intake Total 1666.93 / 1666.93 Balance 1666.93 / 1666.93 Weight last 48 hrs Weight 54.431 kg Physical Exam Narrative: Patient is acutely ill-appearing but opens her eyes and will answer questions. She is oriented to person and place but does not clear on details of what happened today. She remembers this morning and last night. Normocephalic. She has some scleral and conjunctival injection. No photophobia appreciated. Pupils are equally reactive. Nasopharynx is clear. Oropharynx with dry mucous membranes. Bilious vomitus is noted in emesis bag with some food particles visualized. Neck is supple. Lungs are remarkable for shallow, mildly tachypneic respirations. No wheezes or rhonchi noted. Cardiovascular exam reveals a regular rate and rhythm. No murmurs gallops or rubs are noted. Pulses are 1+ x 4. Capillary refill is greater than 3 seconds. She has some mottling noted to the feet and hands and feet are cool to touch. Abdomen is soft. No tenderness is noted. Decreased bowel sounds. No calf tenderness or pitting edema. Has what appears to be chronic scattered petechial erythematous areas to both legs. Scattered sores in different stages of healing none look to be acutely infected. Some minor bruising noted to extensor surfaces. I removed 2 small ticks from the right foot and 1 from the left foot all around her toes. Speech is clear, face symmetric, handgrip weak but equal bilaterally. No abnormal movements noted. Quick SOFA Score: Respiratory Rate: 20 Blood Pressure: 67/42 qSOFA Score: 1 If qSOFA score 2 or greater, continue: PaO2/FiO2 Ratio (mmHg): 0 Blood Pressure Mean: 50 Norepinephrine Current Rate (?g/kg/min): 20 Bilirubin (mg/dl): 0.2 Platelets (x10?/ml): 229 Creatinine (mg/dl): 1.2 Evaluation: Current stage of sepsis: septic shock Initial hypotension: SBP < 90 mmHg Persistent hypotension: SBP < 90 mmHg Sepsis stage criteria used: CMS Sep-1 and Sepsis-3 Crystalloid fluids: 30 mL/kg crystalloid fluids ordered and initiated within 3 hours Blood cultures ordered: Yes Possible source: GI tract/intra-abdominal (nausea/vomiting, abdominal distention, findings of enteritis on CT), genitourinary (limited UOP to date in ED), unknown and other (tick illness) Focused Exam: Vital signs: Temp Pulse Resp BP Pulse Ox O2 Del Method 12/10/23 09:52 97.6 F 75 20 H 77/52 100 Room Air Respiratory exam: Yes diminished lung sounds Cardiovascular exam: Yes regular rate, Yes regular rhythm and No Murmur heart sound present Capillary refill: > 3 Seconds Peripheral pulse strength: 1+ Faint Peripheral pulse location: Radial and Pedal Skin exam: No no rashes or lesions noted (scattered patches of petechial appearing erythema on legs (not new)), Yes mottling (feet only at present) and Yes other (several adherent small ticks removed from feet) Date exam was performed: 12/10/23 Time exam was performed: 13:49 Sepsis Screen No Definite Risk 12/10/23 11:30 Respiratory Rate 20 breaths/min H (12 - 18) 12/10/23 09:52 Blood Pressure 67/42 mmHg 12/10/23 11:30 SOFA Score: ABG PO2/FiO2 Ratio 0 12/10/23 12:13 Blood Pressure Mean 50 mmHg 12/10/23 11:30 Norepinephrine Current Rate 20 12/10/23 12:15 Total Bilirubin 0.2 mg/dL (0.15-1.2) 12/10/23 09:38 Platelet Count 229 10^3/cmm (157-399) 12/10/23 09:38 Creatinine 1.2 mg/dL (0.5-0.9) H 12/10/23 09:38 SOFA Score 8 12/10/23 12:21 Data 12/10/23 09:38 12/10/23 09:38 Other Labs: Radiology Impressions Chest X-Ray 12/10/23 09:55 IMPRESSION: No acute cardiopulmonary disease. Abdomen/Pelvis CT 12/10/23 10:25 IMPRESSION: 1. Extensive sigmoid diverticulosis. No evidence of acute diverticulitis. 2. Fluid distended mid and distal small bowel loops with air and fluid in the colon. No visualized distal obstruction. Sigmoid constipation. 3. Diffuse thickening of jejunal small bowel loops in the LEFT upper quadrant suspicious for small bowel enteritis. 4. Large esophageal hiatal hernia with partial intrathoracic stomach with fluid distention and air-fluid levels. 5. Cholelithiasis. Gallbladder is contracted. Laboratory Results WBC 1.73 10^3/uL (3.29-11.43) L 12/10/23 09:38 RBC 4.72 10^6/uL (3.85-5.65) 12/10/23 09:38 Hgb 13.30 g/dL (11.27-16.99) 12/10/23 09:38 Hct 41.3 % (36-47) 12/10/23 09:38 MCV 87.5 fl (85-98) 12/10/23 09:38 MCH 28.2 pg (27-33) 12/10/23 09:38 MCHC 32.2 g/dL (30-55) 12/10/23 09:38 RDW 13.5 % (12.1-15.1) 12/10/23 09:38 Plt Count 229 10^3/cmm (157-399) 12/10/23 09:38 MPV 10.8 fL (7.4-10.4) H 12/10/23 09:38 Neut % (Auto) 35.3 % 12/10/23 09:38 Lymph % (Auto) 58.4 % 12/10/23 09:38 [place] % (Auto) 4.0 % 12/10/23 09:38 Eos % (Auto) 1.7 % 12/10/23 09:38 Baso % (Auto) 0.6 % 12/10/23 09:38 Neut # (Auto) 0.61 10^3/uL (1.8-7.7) L* 12/10/23 09:38 Lymph # (Auto) 1.0 10^3/uL (0.8-4.8) 12/10/23 09:38 [place] # (Auto) 0.1 10^3/uL (0.2-0.9) L 12/10/23 09:38 Eos # (Auto) 0.0 10^3/uL (0.0-0.8) 12/10/23 09:38 Baso # (Auto) 0.0 10^3/uL (0.0-0.1) 12/10/23 09:38 Nucleated RBC % (auto) 0 % 12/10/23 09: Nucleated RBCs # 0.0 /100WBC 12/10/23 09:38 Specimen Type Arterial 12/10/23 12:13 Sample Site Brachial, left 12/10/23 12:13 ABG pH 7.26 (7.35-7.45) L 12/10/23 12:13 ABG pCO2 29.8 mmHg (35-45) L 12/10/23 12:13 ABG pO2 81.6 mmHg (80.0-100.0) 12/10/23 12:13 ABG PO2/FiO2 Ratio 0 12/10/23 12:13 ABG HCO3 13.4 mmol/L (22-26) L 12/10/23 12:13 ABG O2 Saturation 95.0 12/10/23 12:13 ABG Base Excess -12.3 mmol/L (-2.0-2.0) L 12/10/23 12:13 [place] Test Pos 12/10/23 12:13 A-a O2 Gradient 3.6 mmHg (5-10) L 12/10/23 12:13 Hematocrit 39.8 % (37-47) 12/10/23 12:13 Hgb O2 Saturation 93.3 % (95-100) L 12/10/23 12:13 Carboxyhemoglobin 1.0 %THgb (0.4-20.1) 12/10/23 12:13 Methemoglobin 0.8 % (0.4-1.5) 12/10/23 12:13 Total Hemoglobin 13.0 g/dL (12-16) 12/10/23 12:13 Sodium 140.0 mmol/L (131-143) 12/10/23 12:13 Potassium 3.4 mmol/L (3.5-5.0) L 12/10/23 12:13 Glucose 178.0 mg/dL (70-115) H 12/10/23 12:13 Ionized Calcium 1.2 mmol/L (1.1-1.4) 12/10/23 12:13 O2 Delivery Device Room air 12/10/23 12:13 O2 Liters/Min 2.0 % 12/10/23 09:56 FiO2 21.0 % 12/10/23 12:13 Electric Tool Repairer ID [place] 12/10/23 12:13 Sodium 140 mmol/L (136-145) 12/10/23 09:38 Potassium 3.6 mmol/L (3.5-5.1) 12/10/23 09:38 Chloride 108 mmol/L (98-107) H 12/10/23 09:38 Carbon Dioxide 20 mmol/L (22-29) L 12/10/23 09:38 Anion Gap 15.6 (5-19) 12/10/23 09:38 BUN 18 mg/dL (8-23) 12/10/23 09:38 Creatinine 1.2 mg/dL (0.5-0.9) H 12/10/23 09:38 GFR Calculation Not Reportable 12/10/23 09:38 Glucose 85 mg/dL (65-115) 12/10/23 09:38 Calculated Osmolality 291 mOsm/kg (285-295) 12/10/23 09:38 Lactic Acid 2.5 mmol/L (0.5-2.2) H 12/10/23 10:18 Calcium 10.0 mg/dL (8.5-10.5) 12/10/23 09:38 Magnesium 2.1 mg/dL (1.7-2.3) 12/10/23 09:38 Total Bilirubin 0.2 mg/dL (0.15-1.2) 12/10/23 09:38 AST 34 U/L (0-32) H 12/10/23 09:38 ALT 22 U/L (0-33) 12/10/23 09:38 Alkaline Phosphatase 114 U/L (35-105) H 12/10/23 09:38 Creatine Kinase 37 U/L (26-192) 12/10/23 09:38 Troponin T Baseline 8 ng/L (0-10) 12/10/23 09:38 Troponin T 120 Minute 8.18 ng/L (0-10) 12/10/23 11:17 Delta Troponin T 0.18 ABS# (0-10) 12/10/23 11:17 Total Protein 8.0 g/dL (6.6-8.7) 12/10/23 09:38 Albumin 3.6 g/dL (3.5-5.2) 12/10/23 09:38 Globulin 4.4 g/dL (1.3-4.6) 12/10/23 09:38 Lipase 73 U/L (13-60) H 12/10/23 09:38 Laboratory Tests 12/10/23 09:56 ABG pH 7.32 L ABG pCO2 37.1 ABG pO2 94.9 ABG HCO3 19.1 L ABG O2 Saturation 97.3 ABG Base Excess -6.4 L A-a O2 Gradient 0.8 L Hematocrit 35.6 L Hgb O2 Saturation 96.3 Carboxyhemoglobin 0.8 Methemoglobin 0.2 L Total Hemoglobin 11.6 L Sodium 142.0 Potassium 3.2 L Glucose 94.0 Ionized Calcium 1.3 O2 Liters/Min 2.0 Laboratory Tests 12/10/23 13:13 Urine Color [place]ina Urine Appearance Hazy A Urine pH 5 Ur Specific [place] 1.020 Urine Protein 1+ H Urine Glucose (UA) Norm Urine Ketones 1+ H Urine Blood 2+ H Urine Nitrate Negative Urine Bilirubin 1+ H Urine Urobilinogen 1 H Ur Leukocyte Esterase Negative Urine RBC 5-10 H Urine WBC 0-4 H Ur Squamous Epith Cells 0-4 H Ur Transition Epith Cell 5-10 Amorphous Sediment Trace Urine Bacteria Trace Hyaline Casts 0-4 H Urine Mucus 2+ Micro: Microbiology 12/10/23 11:17 Blood Culture - Preliminary Blood SPECIMEN COLLECTED 12/10/23 10:18 Blood Culture - Preliminary Blood SPECIMEN COLLECTED A&P Assessment and plan (1) Septic shock: Presenting complaint from the field was cardiopulmonary arrest, guiding the direction of initial ER evaluation and workup. With persistent hypotension despite fluid administration, leukopenia with absolute neutropenia, acute kidney injury, lactic acidosis, ABG results and findings on CT of the abdomen without contrast in the lying, severe sepsis with septic shock is current primary diagnosis. Empiric treatment with appropriate fluid boluses, initiation of pressor support for persistent hypotension and broad-spectrum antibiotics have been initiated. Current potential source of infection is intra-abdominal or tickborne illness based on available information. Opportunistic infections should also be considered given chronic leukopenia. That said patient's symptoms today were very sudden in onset so a vascular/embolic etiology should also be kept in mind. EKG without acute ST segment changes and troponin with unremarkable delta at 2 hours. No evidence of ingestion to account for the profound hypotension. She has had exposure to insect repellents but does not have other definitive symptoms to suggest a toxic exposure currently. Has associated acute kidney injury, metabolic acidosis, slight elevation in liver enzymes. Lipase is also noted to be slightly elevated. Nausea and vomiting noted in the ER. Urinalysis not consistent with infectious process. (2) Leukopenia: Has had chronic leukopenia for a couple of years without specific etiology identified beyond tularemia for which she received treatment. Prior to the identification of the leukopenia, patient and had numerous bee stings. Overarching thought at last hematology/oncology visit was that she probably has myelodysplastic syndrome/MDS despite prior bone marrow biopsy being unrevealing. Recommendation has been to repeat bone marrow biopsy which patient has been considering. Today's white count is the lowest it has ever been at 1.73 with an ANC of 0.61. Could be progressive decline of baseline hematopoietic abnormalities or related to acute infection/other acute process. No recent medication changes to account for this. Hemoglobin and platelet count are currently normal. Whether this is a primary component of today's presentation or a secondary component is unclear at this point in time. With absolute neutropenia at risk for atypical infections. (3) Acute kidney injury: Baseline creatinine 0.8. Known to have mild renal atrophy on prior abdominal ultrasounds but does not carry a diagnosis of chronic kidney disease. She is on chronic AMBIKA inhibitor therapy. Initially with no urine output. After a couple of liters of fluid is started to produce some darker yellow urine. (4) Abnormal CT of the abdomen: Noncontrasted CT of the abdomen and pelvis today revealed fluid distended mid and distal small bowel loops with air and fluid in the colon as well. Diffuse thickening of the jejunal small bowel loops in the left upper quadrant are noted to be suspicious for small bowel enteritis. Sigmoid constipation is identified as has a large esophageal hiatal hernia with partial intrathoracic stomach with fluid distention and air-fluid levels. Cholelithiasis with a contracted gallbladder and extensive diverticulosis without evidence of acute diverticulitis were also identified. Patient herself has no complaints of abdominal pain at any point today. She has chronic constipation with regular bowel movements occurring every few days. Last bowel movement was a couple of days ago following her normal pattern. She has had nausea and vomiting this morning. Vomitus consist of breakfast from this morning and bilious fluid. Findings could be secondary to hypoperfusion in a patient with chronic constipation issues and a large esophageal hiatal hernia. More concerned currently about possibility of an acute infection or acute vascular event. Chronic inflammatory process seems less likely but is also in the differential. I suspect the mild elevation in lipase is secondary rather than primary at this point in time. Lack of clear new GI symptoms beyond the vomiting that started after arrival to the emergency room confounds interpretation of imaging findings a bit. (5) Tick bites: Initial encounter. 3 small ticks were removed from patient's feet, 2 on the right, 1 on the left. ER provider also removed 1 from the axilla. Patient herself has removed other ticks already this season. Has a personal history of tularemia which she received treatment for a couple of years ago. The finding of tularemia occurred during workup for anemia and leukopenia. Has not had any focus symptoms of tick disease beyond presenting symptoms today. Has not been on any treatment for tick disease this season. She does use repellent and according to her sons is known at times to potentially get it on her skin rather than her clothes. (6) Anemia: Longstanding history of anemia with iron deficiency and B12 deficiency identified in the past. Receives intermittent Venofer infusions and is on chronic oral iron replacement. Has had B12 supplementation regimen in the past as well. Had EGD and colonoscopy in 2019. (7) Hypertension: Primary hypertension, chronically on amlodipine and lisinopril (8) Osteoporosis: Chronically on alendronate (9) Cardiopulmonary arrest: Reported by those at Mrs Stovall's place of employment who performed two rounds of chest compressions before EMS arrived. On EMS arrival, patient had a pulse and was breathing spontaneously. Blood pressure very low with first check and possible that it was low enough pulses not readily palpable. Plan Inpatient admission ICU level care Continue IV fluids, will add potassium if urine output improves Continue current pressor support which includes fixed rate vasopressin and Levophed Will add a as needed epinephrine drip in case needed Follow-up repeat laboratory studies being drawn soon to include repeat lactic acid among others Will cover empirically with vancomycin, cefepime and doxycycline Blood cultures have been collected Send tick titers Check bacterial antigen panel Get baseline BNP Echocardiogram has been ordered Continue serial cardiac enzymes/EKG Check coagulation studies Monitor urine output and renal function closely adjusting therapeutic agents as needed NG tube has been ordered N.p.o. status currently Serial abdominal exams Will discuss with on-call surgery Hold home medications VTE prophylaxis: Heparin sq and SCDs GI Prophylaxis: PPI Antibiotics: Received Vancomycin, Zosyn and Doxycycline in ED. Will continue with cefepime, vancomycin and doxycycline. Pending studies: Tick panel, bacterial antigens, blood cultures, 6 hr troponin, repeat lactic acid, coags. Morning labs include repeat lipase, CMP, CBC, ABG, lactic acid. Telemetry: Ordered secondary to critical nature of current illness Bean: Ordered for close monitoring of urine output and septic patient with acute kidney injury receiving high-volume IV fluids Line(s): peripheral IVs Disposition plan: Home with outpatient follow up currently though ultimately will depend on clinical course and degree of deconditioning from acute illness. Code Status: Full Code Supportive care otherwise Findings, concerns and plans were discussed with patient and her sons present in the room and they were given an opportunity to ask questions Attestations Medical Necessity Statement*: Anticipated stay greater than 2 midnights in this patient presenting with critically low blood pressures and currently receiving treatment for septic shock. She has an initial sofa score of 8. She is on 2 pressors, receiving IV antibiotics, close monitoring and ongoing workup as described above. At high risk of continued clinical decline up to and including the possibility of without appropriate inpatient treatment. Coding Level of Care Code Critical Care >/= 30 minutes Critical care time (in minutes): 75 The high probability of a clinically significant, sudden or life threatening deterioration, as referenced in this documentation, required my full and direct attention, intervention and personal management. The critical care time shown is in addition to time spent performing any reported separately billable procedures and includes the following: [x] Data and vital sign review and interpretation [x] Patient assessment, examination and intervention [x] Medication orders and management [x] Patient/Family updates as able [x] Care Coordination and Documentation. Diagnoses Septic shock A41.9; R65.21 Leukopenia D72.819 Tick bites W57.XXXA Acute kidney injury N17.[address] of the abdomen R93.5 Anemia D64.9 Hypertension I10 Osteoporosis M81.0 Cardiopulmonary arrest I46.9
[2023-12-10 12:17] LABS: Reflex Lactate Order REFLEX LACTIC ORDERD
[2023-12-10 12:26] LABS: ABG PCO2 29.8 mmHg (35-45); ABG PH Result 7.26 (7.35-7.45); Alveolar-Arterial Oxygen Gradi 3.6 mmHg (5-10); Arterial Blood Gas Hematocrit 39.8 % (37-47); Base Excess ABG -12.3 mmol/L (-2.0-2.0); Blood Gas Allen Test Pos; Blood Gas Operator Identificat WALCI; Blood Gas Sample Site Brachial, left; Blood Gas Sample Type Arterial; HCO3 ABG 13.4 mmol/L (22-26); HGB O2 Sat 93.3 % (95-100); Ionized Calcium Level - ABG 1.2 mmol/L (1.1-1.4); Methemoglobin 0.8 % (0.4-1.5); Oxygen Device ROOM AIR; PO2 ABG 81.6 mmHg (80.0-100.0); PO2 FiO2 Ratio Arterial Blood 0; Potassium Level - ABG 3.4 mmol/L (3.5-5.0)
[2023-12-10 13:26] LABS: Add Urine Microscopic? YES; Bilirubin Urine 1+ (Negative); Blood Urine 2+ (Negative); Glucose Urine UA Norm (Normal); Ketones Urine 1+ (Negative); Leukocyte Esterase Urine Negative (Negative); Nitrate Urine Negative (Negative); Protein Urine 1+ (Negative); Urine Appearance Hazy (CLEAR); Urine Color Amber (Yellow); Urobilinogen Urine 1 mg/dL (Negative); pH Urine 5 (5-7)
[2023-12-10 13:34] LABS: Amorphous Sediment Urine TRACE /hpf; Bacteria Urine TRACE /hpf; Hyaline Casts Urine 0-4 /lpf; Mucus Urine 2+ /hpf; Squamous Epithelial Cell Urine 0-4 /hpf (0-5); WBC Urine 0-4 /hpf (0-5)
[2023-12-10 13:35] LABS: Add Urine Culture? No
[2023-12-10 14:00] LABS: NT Pro B Type Natriuretic Pept 213 pg/mL (0-450); Phosphorus 2.7 mg/dL (2.5-4.5)
[2023-12-10 14:19] LABS: INR 1.38 (0.8-1.2)
[2023-12-10 14:20] LABS: Partial Thromboplastin Time 35.9 SECONDS (23.9-36.7)
[2023-12-10 14:24] LABS: Lactic Acid level (Lactate) 5.2 mmol/L (0.5-2.2)
[2023-12-10] MEDS: norepinephrine 4 MG/250 ML BAG 18 MG IV (14:31)
--- NOTE | 2023-12-10 14:39 | XR_ITS ---
WS: [id number] CHEST XRAY TECHNIQUE: Portable chest. CLINICAL INFORMATION: Post PICC insertion COMPARISON: 12/10/2023 FINDINGS: NG tube with tip in the large esophageal hiatal hernia with tip above the diaphragm. This is seen on the recent CT. Initial PICC line images demonstrate PICC line within the azygos vein at the level of the RIGHT jared tem bronchus. PICC line is repositioned with tip at the SVC/RA junction in good position. No pneumoth orax. No other significant interval changes. XR/XR chest 1V portable [id number] IMPRESSION: 1. Final image demonstrates PICC line in good position SVC/RA junction 2. No pneumothorax. 3. NG tube with tip in the large esophageal hiatal hernia with tip above the d iaphragm and sidehole in the mid esophagus
[2023-12-10 15:31] LABS: Basophils % 0.1 %; Eosinophils % 0.1 %; Hematocrit 40.5 % (36-47); Mean Corpuscular HGB Conc 31.9 g/dL (30-55); Mean Corpuscular Hemoglobin 29.2 pg (27-33); Mean Corpuscular Volume 91.6 fl (85-98); Monocytes # 0.7 10^3/uL (0.2-0.9); Neutrophils # 11.81 10^3/uL (1.8-7.7); Neutrophils % 87.4 %; Nucleated Red Blood Cells % 0 %; Platelet Count 213 10^3/cmm (157-399); Red Blood Count 4.42 10^6/uL (3.85-5.65); Red Cell Distribution Width 13.7 % (12.1-15.1); White Blood Count 13.53 10^3/uL (3.29-11.43)
--- NOTE | 2023-12-10 15:31 | P.CONIM_ITS ---
Providers/Reason For Consult 2 Consulting Physician/Specialty*: Dr. Hari Burk, DO/General surgery Reason for Consult*: SIRS criteria, abdominal pain nausea and vomiting Attending Physician: Gregorio Lepe MD Primary Care Provider: Shade Duval DO History of Present Illness History of Present Illness Clare Stovall is a 73 year old female, with no known cardiac history and a history of leukopenia, who presented to the hospital after a presumed cardiopulmonary arrest. She reports that this morning she felt lightheaded upon standing up and then had a syncopal event. Bystanders reportedly performed 2 separate rounds of CPR. She reports that she did have some nausea and vomiting this morning. Emesis was bilious and not bloody. She reports that she is constipated and has not had a bowel movement for couple of days. She does have diffuse mild abdominal pain. Palpation makes the pain worse. Nothing seems to make the pain better. She ate [employer] this morning but does not believe she could have had any other bad food. She is not around any sick contacts and has not traveled recently. She does report that she has had several tick bites recently. CT of the abdomen pelvis shows a hiatal hernia with a partially intrathoracic stomach. There is also sigmoid constipation and mild jejunal wall thickening. Review of Systems 2 General: Reports: 10 or more systems reviewed and unremarkable except in HPI and below Medications/Allergies Home Medications Medication Instructions Recorded Confirmed Last Taken Type multivitamin 1 tab PO DAILY 05/18/22 12/10/23 Unknown History ferrous sulfate 325 mg (65 mg 325 mg PO DAILY 05/29/23 12/10/23 Unknown History iron) tablet (Feosol) alendronate 70 mg tablet 70 mg PO .weekly 09/02/23 12/10/23 Unknown History amlodipine 10 mg tablet 10 mg PO QPM 12/10/23 12/10/23 Unknown History lisinopril 40 mg tablet 40 mg PO DAILY 12/10/23 12/10/23 Unknown History Allergies Allergy/AdvReac Type Severity Reaction Status Date / Time insect venom Allergy anaphylaxis Verified 09/02/23 13:12 Current Medications Generic Name Dose Route Start Last Admin Trade Name Freq PRN Reason Stop Dose Admin Heparin Sodium (Porcine) 5,000 unit 12/10/23 14:15 12/11/23 01:22 Heparin 5,000 Unit/Ml Inj 1 Ml SUBCUT 5,000 unit Q12H EDILMA Administration norepinephrine 4 mg in 250 mls @ 0 mls/hr 12/10/23 10:00 12/10/23 23:36 Levophed IV 0 mcg/min .Q0M EDILMA 0 mls/hr Titration Protocol Per Protocol Vasopressin 40 unit in 100 mls @ 0.075 mls/min 12/10/23 12:00 12/10/23 19:00 Vasostrict IV 0 mls/min CONT EDILMA Infusion Doxycycline Hyclate 100 mg/ 100 mls @ 100 mls/hr 12/10/23 23:30 12/10/23 23:40 Sodium Chloride IV Infused Q12H EDILMA Infusion Protocol Vancomycin HCl 750 mg/ Sodium 250 mls @ 250 mls/hr 12/10/23 14:30 12/10/23 17:41 Chloride IV Infused Q24H EDILMA Infusion Protocol Sodium Chloride 1,000 mls @ 150 mls/hr 12/10/23 18:30 12/11/23 06:13 Sodium Chloride 0.9% IV 150 mls/hr .Q6H40M EDILMA Infusion Cefepime HCl 2,000 mg/ Sodium 50 mls @ 100 mls/hr 12/11/23 01:00 12/11/23 01:49 Chloride IV Infused Q12H EDIMLA Infusion Protocol Insulin Human Lispro 0 unit 12/10/23 21:00 12/10/23 21:26 Insulin Lispro 100 Unit/1 Ml SUBCUT 1 unit BEDTIME EDILMA Administration Protocol Lanolin 1 applic 12/10/23 20:43 12/10/23 21:26 Lanolin Oint 7 Gm TOPICAL 1 applic PRN PRN Administration DRYNESS Pantoprazole Sodium 40 mg 12/11/23 04:00 12/11/23 04:37 Pantoprazole 40 Mg Sdv IVP 40 mg Q12H EDILMA Administration PFSH Acute 2 PFSH: Medical History (Updated 12/12/23 @ 07:03 by Hari Burk DO) Esophageal hiatal hernia History of tularemia treated in 2020; at time had mass in neck that was biopsied twice with findings of necrotic tissue, mass resolved with treatment of disease Renal cyst, left Hypertension Osteoporosis on alendronate, DEXA 03/2023 Leukopenia Followed at Hem/Onc, has had workup with inconclusive findings, suspicion is that she has MDS in 08/2023 Anemia Gets venofer infusions at times and had B12 supplementation in 11/2022 History of microcytic hypochromic anemia Surgical History History of bone marrow biopsy 07/2021 normal to mildly hypercellular bone marrow with trilineage hematopoesis, no overt dyspoietic or megaloblastic changes seen, FISH for MDS was unremarkable History of colonoscopy 02/2019 unremarkable History of esophagogastroduodenoscopy (EGD) 02/2019 moderate chronic patchy gastritis History of 3 sections Family History Father Lung cancer Other Cancer Dementia Hypertension Stroke Denies family history of Diabetes CAD (coronary artery disease) Clotting disorder Hyperlipidemia Psychiatric illness Suicide Anesthesia complication Bleeding disorder Lung disease Social History Smoking and tobacco/nicotine status: never used tobacco/nicotine Alcohol intake: never Substance/Drug Use: never 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 Vitals/I&O/Wt Last Vital Signs Temp 99.2 F 12/11/23 04:30 Pulse 119 H 12/11/23 06:00 Resp 35 H 12/11/23 06:00 BP 110/63 12/11/23 06:00 Pulse Ox 92 12/11/23 06:00 O2 Del Method Nasal Cannula 12/11/23 06:00 O2 Flow Rate 3 12/11/23 06:00 12/10/23 12/11/23 12/11/23 22:59 06:59 14:59 Intake Total 2437.500 / 5559.630 1765.875 / 7325.505 Output Total 50 / 50 800 / 850 Balance 2387.500 / 5509.630 965.875 / 6475.505 Weight last 48 hrs Weight 143 lb 4.8 oz Weight 143 lb 11.2 oz Weight 120 lb Physical Exam 2 Narrative: General : Patient is well developed , no acute distress, oriented x3 Head : Normal cephalic, a-traumatic. Ears : Pinnae and external canal are normal. Hearing is normal. Eyes : PERRLA, Sclera and injection are normal. No conjunctival discharge. Nose : Mucous membranes are without erythema. Throat : buccal mucosa is normal, gums are without significant recession or hypertrophy. Lungs : Equal chest rise bilaterally, no use of accessory muscles, trachea is midline. Cor : Tachycardic, regular rhythm are normal. Abdomen : Soft, mild distention and mild diffuse tenderness,, no g/r/m Extremities : No edema, no cyanosis or clubbing, dorsalis pedis pulses are present bilaterally, non-tender to palpation of calves. Upper extremities are normal bilaterally. Back : non-tender to palpation, no CVA tenderness. Neuro : CN II - XII intact, Upper and lower extremities have equal and full strength Data 12/11/23 06:55 12/12/23 06:01 Micro: Microbiology 12/10/23 17:50 Occult Blood (FIT) - Final Stool Routine Collection 12/10/23 11:17 Blood Culture - Preliminary Blood SPECIMEN COLLECTED 12/10/23 10:18 Blood Culture - Preliminary Blood SPECIMEN COLLECTED A&P Assessment and plan (1) Gastroenteritis: (2) Leukopenia: (3) Anemia: (4) Cardiopulmonary arrest: (5) Tick bites: Plan I suspect she became dehydrated from gastroenteritis and the resulting nausea and emesis. This may be viral, but we will test her stool. IV fluids NG tube to low intermittent suction N.p.o. Laxative suppository Stool studies No acute surgical intervention Medical management per hospitalist Coding Level of Care Code 23771 Diagnoses Gastroenteritis K52.9 Leukopenia D72.819 Anemia D64.9 Cardiopulmonary arrest I46.9 Tick bites W57.XXXA
[2023-12-10] MEDS: vancomycin 750 MG in sodium chloride 0.9% 250 ML 250 MG IV (15:48)
[2023-12-10 15:49] LABS: Alanine Aminotransferase 23 U/L (0-33); Albumin Level 2.7 g/dL (3.5-5.2); Alkaline Phosphatase 801 U/L (35-105); Anion Gap 17.9 (5-19); Aspartate Amino Transferase 36 U/L (0-32); Blood Urea Nitrogen 23 mg/dL (8-23); Calcium 7.6 mg/dL (8.5-10.5); Carbon Dioxide 13 mmol/L (22-29); Chloride 110 mmol/L (98-107); Creatinine Clr Calc Pharmacy 33.1337; Globulin 3.4 g/dL (1.3-4.6); Glucose 263 mg/dL (65-115); Osmolality Calculated 297 mOsm/kg (285-295); Potassium 3.9 mmol/L (3.5-5.1); Sodium 137 mmol/L (136-145); Total Bilirubin 0.4 mg/dL (0.15-1.2); Total Protein 6.1 g/dL (6.6-8.7)
[2023-12-10] MEDS: heparin 5,000 unit/mL INJ 1 mL 5000 UNIT SUBCUT (15:49)
[2023-12-10] MEDS: cefepime 2,000 MG in sodium chloride 0.9% (plus) 50 ML 100 MG IV (15:49)
[2023-12-10] MEDS: pantoprazole 40 mg SDV IVP (15:49)
[2023-12-10 15:50] LABS: Troponin 5 6HR 8.31 ng/L (0-10); Troponin 5 6HR Delta 0.31 ng/L (0-12)
[2023-12-10] MEDS: sodium chloride 0.9% 1,000 ML 200 ML IV (15:50)
[2023-12-10] MEDS: bisacodyl 10 mg Supp PR (15:50)
--- NOTE | 2023-12-10 15:55 | PICC.NOTE ---
Triple lumen PICC placed to right basilic vein. Referred to vascular access nurse for PICC placement due to use of IV vasopressors. Risks and benefits discussed and informed consent obtained from patient. Right arm assessed with right basilic vein measuring 3.8 mm, straight, and apparent best choice for placement. Using sterile technique and MST, right basilic vein accessed x 1 stick. Mid-arm circumference measured 10 cm from right AC 27 cm. Trimmed cath 35 cm with 2 cm external length noted. CXR shows tip in distal SVC RA junction, in good position for use per radiologist. Line secured with stat-lock. Insertion site covered with Biopatch, gauze, and TSM. Report given to bedside nurse, JAMES Vo.
[2023-12-10 16:55] LABS: ABG PCO2 26.3 mmHg (35-45); ABG PH Result 7.24 (7.35-7.45); Alveolar-Arterial Oxygen Gradi 10.7 mmHg (5-10); Arterial Blood Gas Hematocrit 38.2 % (37-47); Base Excess ABG -14.7 mmol/L (-2.0-2.0); Blood Gas Operator Identificat GD; Blood Gas Sample Site Brachial, left; Blood Gas Sample Type Arterial; Carboxyhemoglobin 0.7 %THgb (0.4-20.1); HCO3 ABG 11.2 mmol/L (22-26); Ionized Calcium Level - ABG 1.2 mmol/L (1.1-1.4); Methemoglobin < 0.0 % (0.4-1.5); Oxygen Device NC; Oxygen Saturation ABG 94.6; PO2 ABG 80.2 mmHg (80.0-100.0); PO2 FiO2 Ratio Arterial Blood 0; Potassium Level - ABG 3.6 mmol/L (3.5-5.0); Total Hemoglobin 12.5 g/dL (12-16)
--- NOTE | 2023-12-10 17:13 | ECG_ITS ---
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 Measurements Intervals [place] Rate: 107 P: 60 SC: 152 QRS: 38 QRSD: 77 T: 62 QT: 339 QTc: 453 Interpretive Statements SINUS TACHYCARDIA POSSIBLE LEFT ATRIAL ENLARGEMENT [-0.1mV P-WAVE IN V1/V2] LOW QRS VOLTAGE IN EXTREMITY LEADS [QRS DEFLECTION < 0.5 mV IN LIMB LEADS] POSSIBLE ANTERIOR MYOCARDIAL INFARCTION , OF INDETERMINATE AGE [30 ms Q WAVE IN V3/V4, OR R < 0.2 mV IN V4] Compared to ECG 12/10/2023 14:51:38 Sinus rhythm no longer present Myocardial infarct finding still present Electronically Signed On 12-10-2023 17:48:35 CDT by Apollo Oneal M.D. [id number]
[2023-12-10] MEDS: norepinephrine 4 MG/250 ML BAG 37.5 MG IV (17:49)
[2023-12-10] MEDS: sodium chloride 0.9% 1,000 ML 150 ML IV (19:21)
[2023-12-10 19:49] LABS: C.Diff PCR (Lab) NEGATIVE (Negative)
[2023-12-10 21:00] LABS: Glucose Point of Care 167 mg/dL (70-110)
[2023-12-10] MEDS: insulin lispro 100 unit/1 mL SUBCUT (21:26)
[2023-12-10] MEDS: lanolin oint 7 gm 1 APPLIC TOPICAL (21:26)
[2023-12-10 23:17] LABS: Anion Gap 14.9 (5-19); Blood Urea Nitrogen 23 mg/dL (8-23); Calcium 7.1 mg/dL (8.5-10.5); Carbon Dioxide 13 mmol/L (22-29); Chloride 117 mmol/L (98-107); Glucose 172 mg/dL (65-115); Lactate (Lactic Acid level) 3.3 mmol/L (0.5-2.2); Osmolality Calculated 300 mOsm/kg (285-295); Potassium 3.9 mmol/L (3.5-5.1); Sodium 141 mmol/L (136-145)
[2023-12-10 23:20] LABS: Creatinine Clr Calc Pharmacy 35.8949
[2023-12-11] VITALS (41 sets, daily range): BP systolic 88–135; BP diastolic 59–84; PULSE 102–128; RESP 1–41; TEMP 36.8–37.9; O2SAT 87–97
[2023-12-11] MEDS: cefepime 2,000 MG in sodium chloride 0.9% (plus) 50 ML 100 MG IV (01:18)
[2023-12-11] MEDS: heparin 5,000 unit/mL INJ 1 mL 5000 UNIT SUBCUT ×2 (01:22→14:42)
[2023-12-11] MEDS: sodium chloride 0.9% 1,000 ML 150 ML IV ×2 (02:10→09:25)
[2023-12-11] MEDS: pantoprazole 40 mg SDV IVP ×2 (04:37→15:47)
[2023-12-11 04:44] LABS: ABG PCO2 23.9 mmHg (35-45); ABG PH Result 7.33 (7.35-7.45); Arterial Blood Gas Hematocrit 36.6 % (37-47); Base Excess ABG -11.8 mmol/L (-2.0-2.0); Blood Gas Allen Test Pos; Blood Gas Sample Site Radial, left; Blood Gas Sample Type Arterial; HCO3 ABG 12.5 mmol/L (22-26); Oxygen Device NC; PO2 ABG 64.5 mmHg (80.0-100.0); PO2 FiO2 Ratio Arterial Blood 0
--- NOTE | 2023-12-11 07:05 | P.PN_ITS ---
Subjective 2 Subjective: Patient seen and examined. She reports that her abdominal pain is much improved and she longer has any nausea or vomiting Vitals/I&O/Wt Last Vital Signs Temp 98.4 F 12/12/23 00:00 Pulse 106 H 12/12/23 06:00 Resp 32 H 12/12/23 06:00 BP 128/79 12/12/23 06:00 Pulse Ox 93 12/12/23 06:00 O2 Del Method Nasal Cannula 12/12/23 06:00 O2 Flow Rate 2 12/12/23 06:00 12/11/23 12/12/23 12/12/23 22:59 06:59 14:59 Intake Total 400 / 1103.333 150 / 1253.333 Output Total 1950 / 2300 800 / 3100 Balance -1550 / -1196.667 -650 / -1846.667 Weight last 48 hrs Weight 138 lb 9.6 oz Weight 143 lb 4.8 oz Weight 143 lb 11.2 oz Weight 120 lb Physical Exam 2 Narrative: General: No acute distress, awake alert and oriented x 3 Abdomen: Soft, nondistended, minimal diffuse tenderness, no guarding rebound or masses Data 12/12/23 06:01 12/12/23 06:01 Micro: Microbiology 12/10/23 11:17 Blood Culture - Preliminary Blood NEGATIVE TO DATE 12/10/23 10:18 Blood Culture - Preliminary Blood NEGATIVE TO DATE 12/10/23 13:13 Bacterial Antigens - Final Urine Kidney A&P Assessment and plan (1) Gastroenteritis: (2) Leukopenia: (3) Anemia: (4) Cardiopulmonary arrest: (5) Tick bites: (6) Bandemia: Plan I suspect she became dehydrated from gastroenteritis and the resulting nausea and emesis. This may be viral, but we will test her stool. Her abdominal pain is much improved. I am not concerned about serious intra- abdominal pathology at this time. Her bandemia may be soliloquy of downtime and CPR IV fluids Recommend removing NG tube and starting clear liquid diet Await stool studies No acute surgical intervention Medical management per hospitalist Attestations 2 Medical Necessity Statement*: Per primary Coding Level of Care Code 40462 Diagnoses Gastroenteritis K52.9 Leukopenia D72.819 Anemia D64.9 Cardiopulmonary arrest I46.9 Tick bites W57.XXXA Bandemia D72.825
[2023-12-11 07:11] LABS: Hematocrit 34.9 % (36-47); Mean Corpuscular HGB Conc 31.8 g/dL (30-55); Mean Corpuscular Volume 91.1 fl (85-98); Mean Platelet Volume 10.9 fL (7.4-10.4); Platelet Count 143 10^3/cmm (157-399); Red Blood Count 3.83 10^6/uL (3.85-5.65); Red Cell Distribution Width 14.2 % (12.1-15.1); White Blood Count 9.96 10^3/uL (3.29-11.43)
[2023-12-11 07:32] LABS: Alanine Aminotransferase 16 U/L (0-33); Albumin Level 2.4 g/dL (3.5-5.2); Alkaline Phosphatase 524 U/L (35-105); Anion Gap 12.6 (5-19); Aspartate Amino Transferase 30 U/L (0-32); Blood Urea Nitrogen 24 mg/dL (8-23); Carbon Dioxide 13 mmol/L (22-29); Chloride 120 mmol/L (98-107); Creatinine Clr Calc Pharmacy 35.8486; Glucose 132 mg/dL (65-115); Lipase 14 U/L (13-60); Magnesium 1.7 mg/dL (1.7-2.3); Osmolality Calculated 300 mOsm/kg (285-295); Potassium 3.6 mmol/L (3.5-5.1); Sodium 142 mmol/L (136-145); Total Bilirubin 0.2 mg/dL (0.15-1.2); Total Protein 5.4 g/dL (6.6-8.7); Uric Acid 5.9 mg/dL (2.4-5.7)
[2023-12-11 07:35] LABS: Lactate (Lactic Acid level) 1.4 mmol/L (0.5-2.2)
[2023-12-11 07:37] LABS: Glucose Point of Care 130 mg/dL (70-110)
[2023-12-11 08:39] LABS: Absolute Neutrophil 9.2 10^3/cmm (1.4-6.5); Absolute Segmented Neutrophil 5.9 10/cmm (1.6-7.1); Band Neutrophils Absolute 3.3 10^3/cmm (0.0-1.2); Eosinophils 0 %; Lymphocytes 2 %; Lymphocytes Absolute 0.2 10^3/cmm (1.2-3.4); Monocytes Absolute 0.4 10^3/cmm (0.1-0.6); Platelet Estimate Decreased (Normal); Segmented Neutrophils 59 %; Slide Review Slide Review Perform; Total Cells Counted 100 (0-100)
[2023-12-11 08:40] LABS: Anisocytosis 1+; Giant Platelets Trace
--- NOTE | 2023-12-11 10:39 | PC.NURSE ---
Garry test performed per Dr. Lepe verbal order. Per PLR test, patient not fluid responsive. SVI 35, CL 4.3, HR 122. Change SVI= 3.6%.
[2023-12-11] MEDS: doxycycline 100 MG in sodium chloride 0.9% (plus) 100 ML IV ×2 (11:35→23:16)
--- NOTE | 2023-12-11 11:39 | P.PN_ITS ---
Subjective 2 Subjective: Hospital course, labs appreciated. Seen with multiple family members at bedside. Overnight patient's blood pressures have remained stable and her vasopressors have been discontinued. She has been maintain mean artery pressure 65. On examination patient has NG tube in place with 3 days of oxygen supplementation. Urine output the last 24 hours up to 1000 cc. Patient complaining of mild difficulty in breathing. Fluid was discontinued. She denies any abdominal pain. Has not had any bowel movements. Tmax since admission of 100.2 Fahrenheit. Vitals/I&O/Wt Last Vital Signs Temp 100.1 F H 12/11/23 07:00 Pulse 122 H 12/11/23 10:00 Resp 32 H 12/11/23 10:00 BP 133/80 12/11/23 10:00 Pulse Ox 92 12/11/23 10:00 O2 Del Method Nasal Cannula 12/11/23 10:00 O2 Flow Rate 3 12/11/23 10:00 12/10/23 12/11/23 12/11/23 22:59 06:59 14:59 Intake Total 2437.500 / 5559.630 1765.875 / 7325.505 575.0 / 575.0 Output Total 50 / 50 800 / 850 350 / 350 Balance 2387.500 / 5509.630 965.875 / 6475.505 225.0 / 225.0 Weight last 48 hrs Weight 65 kg Weight 65.181 kg Weight 54.431 kg Physical Exam 2 Narrative: General: No acute distress, AO x3, sick appearing, NG tube in place on nasal cannula, weak appearing HEENT: PERRLA, pupils bilaterally equal and reactive Chest: Bilateral Dipti-Sucralate sounds all over lung field with decreased air entry, fine crackles up to mid lungs bilaterally CVS: S1-S2 regular, no murmurs, tachycardia, no gallops, no rubs Abdomen: Soft, nontender, no organomegaly, bowel sounds present but sluggish Neuro: No focal deficits, no facial deformity, AO x3, moving all limbs Resp: AUSCULTATION: diminished lung sounds Cardio: COMMON NORMALS: regular rate and regular rhythm RATE: regular rate RHYTHM: regular rhythm HEART SOUNDS: no murmurs Skin: COMMON NORMALS: negative for no rashes or lesions noted (scattered patches of petechial appearing erythema on legs (not new)) GENERAL SKIN EXAM: rashes and/or lesions noted (scattered patches of petechial appearing erythema on legs (not new)), mottling (feet only at present) and other (several adherent small ticks removed from feet) Quick SOFA Score: Respiratory Rate: 30 Blood Pressure: 112/79 Chaitanya Coma Scale: 15 qSOFA Score: 1 If qSOFA score 2 or greater, continue: PaO2/FiO2 Ratio (mmHg): 0 Blood Pressure Mean: 90 Norepinephrine Current Rate (?g/kg/min): 0 Bilirubin (mg/dl): 0.2 Platelets (x10?/ml): 143 Creatinine (mg/dl): 1.2 Daily urine output (ml/day): 1,200 SOFA Score: 6 Evaluation: Current stage of sepsis: severe sepsis Sepsis stage criteria used: [facility] Sep-1 and Sepsis-3 Crystalloid fluids: 30 mL/kg crystalloid fluids ordered and initiated within 3 hours Blood cultures ordered: Yes Possible source: GI tract/intra-abdominal Focused Exam: Vital signs: Temp Pulse Resp BP Pulse Ox O2 Del Method O2 Del Method 12/11/23 10:00 122 H 32 H 133/80 92 Nasal Cannula 12/11/23 09:00 123 H 31 H 125/66 90 Nasal Cannula 12/11/23 08:39 123 H 93 Nasal Cannula 12/11/23 08:00 120 H 32 H 116/70 92 Nasal Cannula 12/11/23 07:00 100.1 F H 119 H 36 H 119/76 92 Nasal Cannula 12/11/23 06:00 119 H 35 H 110/63 92 Nasal Cannula 12/11/23 05:45 122 H 12/11/23 05:30 123 H 35 H 115/69 90 Nasal Cannula 12/11/23 05:00 124 H 35 H 114/69 91 Nasal Cannula 12/11/23 04:30 99.2 F 121 H 35 H 117/71 92 Nasal Cannula 12/11/23 04:00 122 H 36 H 121/71 91 Nasal Cannula 12/11/23 03:30 123 H 37 H 114/71 90 Nasal Cannula 12/11/23 03:00 124 H 35 H 114/70 91 Nasal Cannula 12/11/23 02:30 124 H 34 H 118/70 91 Nasal Cannula 12/11/23 02:00 121 H 34 H 117/73 93 Nasal Cannula 12/11/23 01:45 122 H 36 H 120/72 91 Nasal Cannula 12/11/23 01:30 125/73 92 Nasal Cannula 12/11/23 01:15 120 H 36 H 109/68 94 Nasal Cannula 12/11/23 01:00 125 H 35 H 107/66 94 Nasal Cannula 12/11/23 00:45 126 H 1 L 112/62 87 L Nasal Cannula 12/11/23 00:30 126 H 39 H 114/68 92 Nasal Cannula 12/11/23 00:15 126 H 40 H 108/65 93 Nasal Cannula 12/11/23 00:00 124 H 41 H 113/65 92 Nasal Cannula 12/10/23 23:45 124 H 29 H 108/70 93 Nasal Cannula 12/10/23 23:45 99.7 F H O2 Flow Rate O2 Flow Rate 12/11/23 10:00 3 12/11/23 09:00 3 12/11/23 08:39 2 12/11/23 08:00 12/11/23 07:00 12/11/23 06:00 3 12/11/23 05:45 12/11/23 05:30 3 12/11/23 05:00 3 12/11/23 04:30 3 12/11/23 04:00 3 12/11/23 03:30 3 12/11/23 03:00 3 12/11/23 02:30 3 12/11/23 02:00 2.5 12/11/23 01:45 3.5 12/11/23 01:30 3.5 12/11/23 01:15 3.5 12/11/23 01:00 3.5 12/11/23 00:45 3.5 12/11/23 00:30 3.5 12/11/23 00:15 3.5 12/11/23 00:00 3.5 12/10/23 23:45 3.5 12/10/23 23:45 Respiratory exam: Yes diminished lung sounds Cardiovascular exam: Yes regular rate, Yes regular rhythm and No Murmur heart sound present Skin exam: No no rashes or lesions noted (scattered patches of petechial appearing erythema on legs (not new)), Yes mottling (feet only at present) and Yes other (several adherent small ticks removed from feet) Date exam was performed: 12/11/23 Time exam was performed: 17:09 2 Sepsis Screen No Definite Risk 12/10/23 11:30 Respiratory Rate 30 breaths/min H (12 - 18) 12/11/23 16:00 Blood Pressure 112/79 mmHg 12/11/23 16:00 Chaitanya Coma Scale Score 15 12/11/23 16:39 Quick SOFA Score 1 12/11/23 11:45 SOFA Score: 2 ABG PO2/FiO2 Ratio 0 12/11/23 04:35 [place] Coma Scale Score 15 12/11/23 16:39 Blood Pressure Mean 90 mmHg 12/11/23 16:00 Norepinephrine Current Rate 0 12/11/23 11:45 Total Bilirubin 0.2 mg/dL (0.15-1.2) 12/11/23 06:55 Platelet Count 143 10^3/cmm (157-399) L 12/11/23 06:55 Creatinine 1.2 mg/dL (0.5-0.9) H 12/11/23 06:55 Daily Urine Output (ml/day) 1,200 12/11/23 11:45 SOFA Score 4 12/11/23 11:45 Data 12/11/23 06:55 12/11/23 06:55 Micro: Microbiology 12/10/23 11:17 Blood Culture - Preliminary Blood NEGATIVE TO DATE 12/10/23 10:18 Blood Culture - Preliminary Blood NEGATIVE TO DATE 12/10/23 13:13 Bacterial Antigens - Final Urine Kidney 12/10/23 17:50 Occult Blood (FIT) - Final Stool Routine Collection A&P Assessment and plan (1) Septic shock: Resolved. On admission was on 3 vasopressors. Currently have been weaned off. Keep mean artery pressure 65. Patient having mild concern for fluid overload. Stop IV fluids. Follow-up blood culture, urine culture. Stool studies awaited. Add stool Shigella and Salmonella studies. I have been told C. difficile has been ruled out but I do not see the results in the chart. Will request to be updated. Tick panel awaited. Respiratory viral panel negative. Add tularemia studies as patient has a history of tularemia in the past. Check MRSA swab. Check procalcitonin. Urine Legionella, bacterial antigen negative. Continue with empiric IV antibiotics for now including IV vancomycin. Switch from cefepime to Zosyn for better anaerobic coverage. IV Lasix 40 mg one-time. Monitor urine output. Check chest CT without contrast. (2) Leukopenia: Possible history of MDS as an outpatient. Follows up with oncology. No concerns for neutropenia for now. Continue to monitor. (3) Acute kidney injury: Baseline renal function is normal. Currently creatinine up to 1.2. Most likely in setting of septic shock on presentation. Check urine lites, urine creatinine, urine eosinophils. Medical reconstruction done for nephrotoxic drugs. Monitor BMP daily. No obstructive nephropathy on CT abdomen pelvis done on admission. (4) Abnormal CT of the abdomen: Concerns of dilated small bowel loops on admission. Could be infectious versus shock bowel in setting of hypotension on admission. Currently abdominal examination is benign. Abdominal series x-ray. NG tube as per surgical team. Keep n.p.o. for now. Protonix twice daily, Zofran as needed. (5) Tick bites: History of tick bites in the past. History of tularemia in the past. Initiate doxycycline 100 mg twice daily. (6) Anemia: With history of possible MDS. Baseline hemoglobin around 11. Currently hemoglobin at baseline. Continue to monitor daily. Protonix as above. (7) Hypertension: Goal blood pressure less than 140/90 mmHg with mean over 65. In severe septic shock on admission. Resolved for now. Hold off on antihypertensive for now. (8) Osteoporosis: (9) Cardiopulmonary arrest: Reported by those at Mrs Stovall's place of employment who performed two rounds of chest compressions before EMS arrived. On EMS arrival, patient had a pulse and was breathing spontaneously. Blood pressure very low with first check and possible that it was low enough pulses not readily palpable. Plan Thrombocytopenia: Platelet back to baseline of around 166. Continue to monitor for now. 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 Type 2 diabetes mellitus: Check A1c. No past history of type 2 diabetes mellitus. For now we will hold off on insulin sliding scale. Hypoglycemia protocol. Watch for shock liver and shock kidney. Out of bed to chair. Keep NPO. Will plan for PT evaluation within next 24 hours. Incentive spirometry Check iron panel, vitamin B12, folate level, procalcitonin, TSH. Start on IV iron supplementation. Analgesia: Tylenol as needed Glycemic control: Not needed Nutrition: N.p.o. CODE STATUS: Full code PUD prophylaxis: Protonix OPD prophylaxis DVT prophylaxis: Heparin 5000 every 12 hourly Discharge planning: Home with caregiver once medically stable Continue with care at ICU This documentation was created by [employer] podiatric medicine doctor software. Every effort was made to ensure accuracy of podiatric medicine doctor. Any obvious errors or omissions should be clarified with the author of the document. Attestations 2 Medical Necessity Statement*: Requires further hospitalization for management of severe sepsis with concerns for acute kidney injury, possible tick infection in a patient who was admitted with septic shock post CPR with concerns for shock bowel Critical Care Time: The high probability of a clinically significant, sudden or life threatening deterioration of the patient's [cardiac, nephrology, GI] system(s) required my full and direct attention, intervention and personal management. The critical care time is as shown. This time is in addition to time spent performing any reported procedures but includes the following: [x] Data and vital sign review and interpretation [x] Patient assessment, examination and intervention [x] Documentation [x] Medication orders and management Critical Care Time (min): 60 Coding Level of Care Code Critical Care >/= 30 minutes Critical care time (in minutes): 60 The high probability of a clinically significant, sudden or life threatening deterioration, as referenced in this documentation, required my full and direct attention, intervention and personal management. The critical care time shown is in addition to time spent performing any reported separately billable procedures and includes the following: [x] Data and vital sign review and interpretation [x ] Patient assessment, examination and intervention [x] Medication orders and management [x] Patient/Family updates as able [x] Care Coordination and Documentation. Diagnoses Septic shock A41.9; R65.21 Leukopenia D72.819 Acute kidney injury N17.[address] of the abdomen R93.5 Tick bites W57.XXXA Anemia D64.9 Hypertension I10 Osteoporosis M81.0 Cardiopulmonary arrest I46.9
--- NOTE | 2023-12-11 11:48 | CTR_ITS ---
PROCEDURE INFORMATION: Exam: CT Chest Without Contrast; Diagnostic Exam date and time: 12/11/2023 3:26 PM Age: 73 years old Clinical indication: Condition or disease; Other: Pna, sepsis TECHNIQUE: Imaging protocol: Diagnostic computed tomography of the chest without contrast. COMPARISON: CR XR chest 1V portable [id number] 12/10/2023 3:20 PM RADIATION DOSE METRICS: Total DLP (mGy-cm): 247 FINDINGS: Lungs: Dependent atelectasis in each lower lobe. Pleural spaces: Small bilateral pleural effusions. Calcified pleural plaques anteriorly on the left side. Heart: Unremarkable. No cardiomegaly. No pericardial effusion. Lymph nodes: Unremarkable. No enlarged lymph nodes. Vasculature: Unremarkable. No aortic aneurysm. Gallbladder and bile ducts: Cholelithiasis. Kidneys and ureters: Left renal cyst. Intraperitoneal space: There is a small amount of free fluid within the upper abdomen. Bones/joints: Unremarkable. No acute fracture. Soft tissues: Unremarkable. CT/CT chest wo con [id number] IMPRESSION: Dependent atelectasis. Small effusions. COMMENTS: Consistent with the [place]'s Incidental Findings Committee white paper (J Am Mik Radiol 2018): Any incidental renal lesion less than 1 cm or classified as too small to characterize, or any incidental cystic renal lesion characterized as simple-appearing, is likely benign. No follow-up imaging is recommended for these lesions per consensus recommendations based on imaging criteria.
[2023-12-11 12:24] LABS: Estmated Average Glucose 100; Hemoglobin A1C 5.1 % (4.0-6.0)
[2023-12-11] MEDS: FUROsemide 10 mg/mL SDV 4mL 40 MG IVP (12:24)
[2023-12-11 12:30] LABS: Procalcitonin 24.06 ng/mL (0-0.5); Thyroid Stimulating Hormone 1.03 uIU/mL (0.27-4.20); Vitamin B12 712 pg/mL (232-1245)
[2023-12-11 12:41] LABS: Iron 9 ug/dL (37-145); Percent Saturation 7.2 % (20-50); Total Iron Binding Capacity 125 mcg/dl; Unsaturated Iron Binding 116 ug/dL (112-347)
[2023-12-11] MEDS: piperacillin-tazobactam 3.375 GM in sodium chloride 0.9% (plus) 50 ML IV ×2 (12:55→19:44)
[2023-12-11 13:29] LABS: Lyme AB Screen <0.90 index
--- NOTE | 2023-12-11 14:28 | PC.NURSE ---
Verified administration of Heparin subcut with Dr. Lepe. See MAR for admin time.
[2023-12-11 14:40] LABS: Adenovirus Not Detected (NOT DETECT); Chlamydia Pneumoniae Not Detected (NOT DETECT); Coronavirus 229E,HKU1,NL63,OC4 Not Detected (NOT DETECT); Human Metapneumovirus Not Detected (NOT DETECT); Human Rhinovirus/Enterovirus Not Detected (NOT DETECT); Influenza A Not Detected (NOT DETECT); Influenza A H1 Not Detected (NOT DETECT); Influenza A H1-2009 Not Detected (NOT DETECT); Influenza A H3 Not Detected (NOT DETECT); Influenza B Not Detected (NOT DETECT); Mycoplasma Pneumoniae Not Detected (NOT DETECT); Parainfluenza Virus Type 1 Not Detected (NOT DETECT); Parainfluenza Virus Type 2 Not Detected (NOT DETECT); Parainfluenza Virus Type 3 Not Detected (NOT DETECT); Parainfluenza Virus Type 4 Not Detected (NOT DETECT); Respiratory Syncytial Virus A Not Detected (NOT DETECT); Respiratory Syncytial Virus B Not Detected (NOT DETECT); SARS-COV-2 Not Detected (NOT DETECT)
[2023-12-11] MEDS: vancomycin 750 MG in sodium chloride 0.9% 250 ML 250 MG IV (14:42)
--- NOTE | 2023-12-11 14:50 | XRR_ITS ---
PROCEDURE INFORMATION: Exam: XR Abdomen Exam date and time: 12/11/2023 3:04 PM Age: 73 years old Clinical indication: Abdominal pain; Generalized; Additional info: Ileus vs shock abd TECHNIQUE: Imaging protocol: Radiologic exam of the abdomen. Views: 2 Views. Upright and supine views. COMPARISON: CT abdomen pelvis con [id number] 12/10/2023 11:07 AM FINDINGS: Tubes, catheters and devices: PICC line terminates in the SVC. Bilateral pleural effusions with bibasilar atelectasis or infiltrates. Gastrointestinal tract: Gas fluid levels within prominent loops of mid abdominal small bowel are nonspecific in appearance. Intraperitoneal space: Normal. No free air. Bones/joints: Unremarkable for age. XR/XR acute abdomen series [id number] IMPRESSION: Nonspecific.
[2023-12-11] MEDS: acetaminophen 1,000 MG/100 ML PIGGYBACK 400 MG IV (15:46)
[2023-12-11 16:41] LABS: Glucose Point of Care 109 mg/dL (70-110)
[2023-12-11 17:49] LABS: Albumin Level 2.6 g/dL (3.5-5.2); Alkaline Phosphatase 492 U/L (35-105); Blood Urea Nitrogen 26 mg/dL (8-23); Calcium 6.8 mg/dL (8.5-10.5); Carbon Dioxide 12 mmol/L (22-29); Chloride 117 mmol/L (98-107); Globulin 3.7 g/dL (1.3-4.6); Glucose 123 mg/dL (65-115); Osmolality Calculated 302 mOsm/kg (285-295); Sodium 143 mmol/L (136-145); Total Bilirubin 0.4 mg/dL (0.15-1.2); Total Protein 6.3 g/dL (6.6-8.7)
[2023-12-11 17:51] LABS: Alanine Aminotransferase 19 U/L (0-33); Anion Gap 17.9 (5-19); Aspartate Amino Transferase 47 U/L (0-32); Potassium 3.9 mmol/L (3.5-5.1)
--- NOTE | 2023-12-11 18:15 | PC.NURSE ---
Shift note: Family at bedside throughout shift given updates in care as orders received. Patient remains on 3LNC. Temperatures in low 100's, IV Tylenol given per SEP, temperature as documented after administration. NPO status, NG removed with no complications, Output as documented, Patient brought to CT via wheelchair on 3LNC, stand by assistance, CT results : Dependent atelectasis. Small effusions, patient using IS at bedside, instructed to use at least 10 times every hour. PICC dressing changed. Patient up to chair approximately three hours. Patient states she is feeling much better now and is in good spirits visiting with family. Lungs sounds clear, respirations are less labored than earlier in in shift. Patient is resting in bed with visitors at bedside. Denies pain, no requests or complaints at this time.
[2023-12-12] VITALS (22 sets, daily range): BP systolic 106–150; BP diastolic 63–90; PULSE 91–125; RESP 17–38; TEMP 36.8–37.7; O2SAT 90–97
[2023-12-12] MEDS: pantoprazole 40 mg SDV IVP ×2 (03:24→15:28)
[2023-12-12] MEDS: heparin 5,000 unit/mL INJ 1 mL 5000 UNIT SUBCUT ×2 (03:24→13:57)
[2023-12-12] MEDS: piperacillin-tazobactam 3.375 GM in sodium chloride 0.9% (plus) 50 ML IV ×3 (03:48→20:29)
[2023-12-12 06:13] LABS: Basophils % 0.1 %; Hematocrit 32.4 % (36-47); Lymphocytes # 0.7 10^3/uL (0.8-4.8); Lymphocytes % 8.3 %; Mean Corpuscular HGB Conc 32.7 g/dL (30-55); Mean Corpuscular Volume 88.5 fl (85-98); Mean Platelet Volume 10.9 fL (7.4-10.4); Monocytes # 0.4 10^3/uL (0.2-0.9); Monocytes % 5.1 %; Neutrophils # 6.75 10^3/uL (1.8-7.7); Neutrophils % 86.1 %; Nucleated Red Blood Cells % 0 %; Platelet Count 142 10^3/cmm (157-399); Red Blood Count 3.66 10^6/uL (3.85-5.65); Red Cell Distribution Width 14.5 % (12.1-15.1); White Blood Count 7.84 10^3/uL (3.29-11.43)
[2023-12-12 06:33] LABS: Alanine Aminotransferase 14 U/L (0-33); Albumin Level 2.4 g/dL (3.5-5.2); Alkaline Phosphatase 371 U/L (35-105); Aspartate Amino Transferase 30 U/L (0-32); Blood Urea Nitrogen 26 mg/dL (8-23); Calcium 6.8 mg/dL (8.5-10.5); Carbon Dioxide 16 mmol/L (22-29); Chloride 119 mmol/L (98-107); Chol HDL Ratio 2.02 mg/dL (0.0-4.40); Cholesterol 91 mg/dL (0-200); Globulin 3.4 g/dL (1.3-4.6); Glucose 100 mg/dL (65-115); HDL Cholesterol 45 mg/dL (60-100); LDL Cholesterol Calculated 34 mg/dL (50-129); Magnesium 1.8 mg/dL (1.7-2.3); Osmolality Calculated 305 mOsm/kg (285-295); Sodium 145 mmol/L (136-145); Total Bilirubin 0.3 mg/dL (0.15-1.2); Total Protein 5.8 g/dL (6.6-8.7); Triglycerides 59 mg/dL (0-150); VLDL Cholestrol Calculation 12 mg/dL (0-30)
[2023-12-12 06:35] LABS: Creatinine Clr Calc Pharmacy 32.5876
[2023-12-12 06:59] LABS: Glucose Point of Care 103 mg/dL (70-110)
[2023-12-12 07:00] LABS: Slide Review Slide Review Perform
[2023-12-12 07:03] LABS: Folate Level > 20.0 ng/mL (4.8-37.3)
[2023-12-12 07:47] LABS: Glucose Point of Care 120 mg/dL (70-110)
--- NOTE | 2023-12-12 09:38 | P.PN_ITS ---
Subjective 2 Subjective: Patient seen and examined. She is awake and alert. She reports that her abdominal pain has improved and she is passing flatus and had a bowel movement. Tolerating liquid diet Vitals/I&O/Wt Last Vital Signs Temp 98.4 F 12/14/23 08:05 Pulse 81 12/14/23 08:05 Resp 18 12/14/23 08:05 BP 154/91 12/14/23 08:05 Pulse Ox 96 12/14/23 08:05 O2 Del Method Room Air 12/14/23 08:05 O2 Flow Rate 2 12/12/23 10:00 12/13/23 12/14/23 12/14/23 22:59 06:59 14:59 Intake Total 400 / 1050 170 / 1220 530 / 530 Balance 400 / 700 170 / 870 530 / 530 Weight last 48 hrs Weight 143 lb 1 oz Weight 143 lb 1 oz Weight 143 lb 6 oz Weight 146 lb 7 oz Physical Exam 2 Narrative: General: No acute distress, awake alert and oriented x 3 Abdomen: Soft, mildly distended but she reports that this is her normal state, nontender except at injection sites, no guarding or rebound Data 12/14/23 06:30 12/14/23 06:30 Micro: Microbiology 12/10/23 17:30 E. coli Shiga-like Toxin (PCR) - Final Stool Campylobacter (PCR) - Final A&P Assessment and plan (1) Gastroenteritis: (2) Anemia: (3) Cardiopulmonary arrest: (4) Tick bites: Plan I suspect she became dehydrated from gastroenteritis and the resulting nausea and emesis. This may be viral. Stool studies: C. difficile negative, Salmonella still pending Her abdominal pain has resolved. I am not concerned about serious intra- abdominal pathology at this time. Her bandemia may be soliloquy of downtime and CPR Recommend regular diet Await stool studies No acute surgical intervention Medical management per hospitalist Attestations 2 Medical Necessity Statement*: Per primary Coding Level of Care Code 84726 Diagnoses Gastroenteritis K52.9 Anemia D64.9 Cardiopulmonary arrest I46.9 Tick bites W57.XXXA
[2023-12-12 10:59] LABS: Hematocrit 31.9 % (36-47); Lymphocytes # 0.7 10^3/uL (0.8-4.8); Lymphocytes % 8.6 %; Mean Corpuscular HGB Conc 32.6 g/dL (30-55); Mean Corpuscular Volume 88.9 fl (85-98); Mean Platelet Volume 11.3 fL (7.4-10.4); Monocytes # 0.4 10^3/uL (0.2-0.9); Neutrophils # 7.16 10^3/uL (1.8-7.7); Nucleated Red Blood Cells % 0 %; Platelet Count 149 10^3/cmm (157-399); Red Blood Count 3.59 10^6/uL (3.85-5.65); Red Cell Distribution Width 14.8 % (12.1-15.1); White Blood Count 8.33 10^3/uL (3.29-11.43)
[2023-12-12 12:33] LABS: C.Diff PCR (Lab) NEGATIVE (Negative)
[2023-12-12] MEDS: potassium chloride ER 20 mEq Tablet 80 MEQ PO (12:35)
[2023-12-12] MEDS: doxycycline 100 MG in sodium chloride 0.9% (plus) 100 ML IV ×2 (12:42→23:34)
[2023-12-12 13:31] LABS: Methicillin-Resist S.aureu PCR NOT DETECTED (NOT DETECTED)
--- NOTE | 2023-12-12 13:45 | PC.NURSE ---
Report given to JAMES Obrien [facility].
[2023-12-12] MEDS: vancomycin 750 MG in sodium chloride 0.9% 250 ML 250 MG IV (13:59)
--- NOTE | 2023-12-12 14:00 | PC.NURSE ---
[facility]. All belongings with pt. further updates given to Camille RAMIREZ
--- NOTE | 2023-12-12 14:08 | P.PN_ITS ---
Subjective 2 Subjective: No acute events overnight. Patient has remained hemodynamically stable and afebrile. Last fever 11/26:15 100.2 Fahrenheit. Heart rate better and trending down. Still around 100s. Patient states she is feeling better. On room air. During the day was sitting up in chair. Orthostatics negative. Vitals/I&O/Wt Last Vital Signs Temp 98.4 F 12/12/23 08:00 Pulse 112 H 12/12/23 13:00 Resp 23 H 12/12/23 13:00 BP 143/86 12/12/23 13:00 Pulse Ox 92 12/12/23 13:00 O2 Del Method Room Air 12/12/23 13:00 O2 Flow Rate 2 12/12/23 10:00 12/11/23 12/12/23 12/12/23 22:59 06:59 14:59 Intake Total 400 / 1103.333 150 / 1253.333 500 / 500 Output Total 1950 / 2300 800 / 3100 250 / 250 Balance -1550 / -1196.667 -650 / -1846.667 250 / 250 Weight last 48 hrs Weight 62.868 kg Weight 65 kg Weight 65.181 kg Physical Exam 2 Narrative: General: No acute distress, AO x3, sick appearing, NG tube in place on nasal cannula, weak appearing HEENT: PERRLA, pupils bilaterally equal and reactive Chest: Bilateral Dipti-Sucralate sounds all over lung field with decreased air entry, fine crackles up to mid lungs bilaterally CVS: S1-S2 regular, no murmurs, tachycardia, no gallops, no rubs Abdomen: Soft, nontender, no organomegaly, bowel sounds present but sluggish Neuro: No focal deficits, no facial deformity, AO x3, moving all limbs Resp: AUSCULTATION: diminished lung sounds Cardio: COMMON NORMALS: regular rate and regular rhythm RATE: regular rate RHYTHM: regular rhythm HEART SOUNDS: no murmurs Skin: COMMON NORMALS: negative for no rashes or lesions noted (scattered patches of petechial appearing erythema on legs (not new)) GENERAL SKIN EXAM: rashes and/or lesions noted (scattered patches of petechial appearing erythema on legs (not new)), mottling (feet only at present) and other (several adherent small ticks removed from feet) Quick SOFA Score: Respiratory Rate: 23 Blood Pressure: 143/86 Chaitanya Coma Scale: 15 qSOFA Score: 1 If qSOFA score 2 or greater, continue: PaO2/FiO2 Ratio (mmHg): 0 Blood Pressure Mean: 105 Bilirubin (mg/dl): 0.3 Platelets (x10?/ml): 149 C reatinine (mg/dl): 1.3 SOFA Score: 6 Evaluation: Current stage of sepsis: sepsis Sepsis stage criteria used: [facility] Sep-1 and Sepsis-3 Crystalloid fluids: no fluids ordered Reasons: heart failure Blood cultures ordered: Yes Possible source: GI tract/intra- abdominal Focused Exam: Vital signs: Temp Pulse Pulse Pulse Pulse Resp BP 12/12/23 13:00 112 H 23 H 143/86 12/12/23 12:00 94 31 H 143/86 12/12/23 11:00 91 25 H 122/80 12/12/23 10:00 125 H 38 H 116/78 12/12/23 09:55 107 H 117 H 121 H 12/12/23 09:00 113 H 28 H 134/79 12/12/23 08:44 105 H 12/12/23 08:00 98.4 F 105 H 33 H 128/75 12/12/23 08:00 105 H 12/12/23 07:00 107 H 31 H 128/75 12/12/23 06:00 106 H 32 H 128/79 12/12/23 05:08 108 H 12/12/23 05:00 108 H 31 H 128/72 12/12/23 04:00 107 H 31 H 127/72 12/12/23 03:00 106 H 29 H 123/69 BP BP BP Pulse Ox O2 Del Method O2 Del Method O2 Flow Rate 12/12/23 13:00 92 Room Air 12/12/23 12:00 94 Room Air 12/12/23 11:00 93 Room Air 12/12/23 10:00 90 Nasal Cannula 2 12/12/23 09:55 117/76 124/81 115/77 12/12/23 09:00 93 Nasal Cannula 2 12/12/23 08:44 93 Nasal Cannula 12/12/23 08:00 93 Nasal Cannula 2 12/12/23 08:00 12/12/23 07:00 92 Nasal Cannula 2 12/12/23 06:00 93 Nasal Cannula 2 12/12/23 05:08 12/12/23 05:00 93 Nasal Cannula 2 12/12/23 04:00 93 Nasal Cannula 2 12/12/23 03:00 93 Nasal Cannula 2 O2 Flow Rate 12/12/23 13:00 12/12/23 12:00 12/12/23 11:00 12/12/23 10:00 12/12/23 09:55 12/12/23 09:00 12/12/23 08:44 1.5 12/12/23 08:00 12/12/23 08:00 12/12/23 07:00 12/12/23 06:00 12/12/23 05:08 12/12/23 05:00 12/12/23 04:00 12/12/23 03:00 Respiratory exam: Yes diminished lung sounds Cardiovascular exam: Yes regular rate, Yes regular rhythm and No Murmur heart sound present Skin exam: No no rashes or lesions noted (scattered patches of petechial appearing erythema on legs (not new)), Yes mottling (feet only at present) and Yes other (several adherent small ticks removed from feet) Date exam was performed: 12/12/23 Time exam was performed: 14:39 2 Sepsis Screen No Definite Risk 12/10/23 11:30 Respiratory Rate 23 breaths/min H (12 - 18) 12/12/23 13:00 Blood Pressure 143/86 mmHg 12/12/23 13:00 [place] Coma Scale Score 15 12/12/23 12:00 Quick SOFA Score 1 12/12/23 14:45 SOFA Score: 2 ABG PO2/FiO2 Ratio 0 12/11/23 04:35 [place] Coma Scale Score 15 12/12/23 12:00 Blood Pressure Mean 105 mmHg 12/12/23 13:00 Norepinephrine Current Rate 0 12/11/23 11:45 Total Bilirubin 0.3 mg/dL (0.15-1.2) 12/12/23 06:01 Platelet Count 149 10^3/cmm (157-399) L 12/12/23 10:50 Creatinine 1.3 mg/dL (0.5-0.9) H 12/12/23 06:01 Daily Urine Output (ml/day) 1,200 12/11/23 11:45 SOFA Score 6 12/12/23 14:45 Data 12/12/23 10:50 12/12/23 06:01 Micro: Microbiology 12/10/23 11:17 Blood Culture - Preliminary Blood NEGATIVE TO DATE 12/10/23 10:18 Blood Culture - Preliminary Blood NEGATIVE TO DATE A&P Assessment and plan (1) Septic shock: Resolved. On admission was on 3 vasopressors. Currently have been weaned off. Keep mean artery pressure 65. Patient having mild concern for fluid overload. Stop IV fluids. Follow-up blood culture, urine culture. Stool studies awaited. Add stool Shigella and Salmonella studies. I have been told C. difficile has been ruled out but I do not see the results in the chart. Will request to be updated. Tick panel awaited. Respiratory viral panel negative. Add tularemia studies as patient has a history of tularemia in the past. Check MRSA swab. Check procalcitonin. Urine Legionella, bacterial antigen negative. Continue with empiric IV antibiotics for now including IV vancomycin. Switch from cefepime to Zosyn for better anaerobic coverage. IV Lasix 40 mg one-time. Monitor urine output. Check chest CT without contrast. (2) Leukopenia: Possible history of MDS as an outpatient. Follows up with oncology. No concerns for neutropenia for now. Continue to monitor. (3) Acute kidney injury: Baseline renal function is normal. Currently creatinine up to 1.2. Most likely in setting of septic shock on presentation. Check urine lites, urine creatinine, urine eosinophils. Medical reconstruction done for nephrotoxic drugs. Monitor BMP daily. No obstructive nephropathy on CT abdomen pelvis done on admission. (4) Abnormal CT of the abdomen: Concerns of dilated small bowel loops on admission. Could be infectious versus shock bowel in setting of hypotension on admission. Currently abdominal examination is benign. Abdominal series x-ray. NG tube as per surgical team. Keep n.p.o. for now. Protonix twice daily, Zofran as needed. (5) Tick bites: History of tick bites in the past. History of tularemia in the past. Initiate doxycycline 100 mg twice daily. (6) Anemia: With history of possible MDS. Baseline hemoglobin around 11. Currently hemoglobin at baseline. Continue to monitor daily. Protonix as above. (7) Hypertension: Goal blood pressure less than 140/90 mmHg with mean over 65. In severe septic shock on admission. Resolved for now. Hold off on antihypertensive for now. (8) Osteoporosis: (9) Cardiopulmonary arrest: Reported by those at Mrs Stovall's place of employment who performed two rounds of chest compressions before EMS arrived. On EMS arrival, patient had a pulse and was breathing spontaneously. Blood pressure very low with first check and possible that it was low enough pulses not readily palpable. (10) Gastroenteritis: (11) Bandemia: Plan Thrombocytopenia: Platelet back to baseline of around 166. Continue to monitor for now. 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 Type 2 diabetes mellitus: Ruled out. A1c 5.1. Hypoglycemia protocol. Plan for the day: Continue to monitor vitals. Keep manual pressure 65 and saturation over 90%. Check orthostatic vitals. Out of bed to chair. Incentive spirometry. PT and OT evaluation. Advance to full liquid diet. Replace 80 mg of oral potassium. Kidney function so far stable. Mild improvement in metabolic acidosis. Continue to monitor renal and liver functions. MRSA swab negative. Discontinue vancomycin. Continue with IV doxycycline and Zosyn for now. Tick panel awaited. Tularemia workup awaiting. Blood cultures and urine cultures so far negative. Patient having further diarrhea. C. difficile negative. Shigella studies and parasite studies awaited. Procalcitonin elevated. Monitor in AM. [facility] Analgesia: Tylenol as needed Glycemic control: Not needed Nutrition: Full liquid. Advance as per tolerance. CODE STATUS: Full code PUD prophylaxis: Protonix OPD prophylaxis DVT prophylaxis: Heparin 5000 every 12 hourly Discharge planning: Home with caregiver within next 24 to 48 hours patient remains hemodynamically stable and afebrile with stable LFTs and TFTs. This documentation was created by [employer] educational aide software. Every effort was made to ensure accuracy of educational aide. Any obvious errors or omissions should be clarified with the author of the document. Attestations 2 Medical Necessity Statement*: Requires further hospitalization for management of resolving severe sepsis and the patient was admitted with syncope, septic shock, acute kidney injury Diagnoses Gastroenteritis K52.9 Leukopenia D72.819 Anemia D64.9 Cardiopulmonary arrest I46.9 Tick bites W57.XXXA Bandemia D72.825 Septic shock A41.9; R65.21 Acute kidney injury N17.[address] of the abdomen R93.5 Hypertension I10 Osteoporosis M81.0
[2023-12-12] MEDS: iron sucrose 200 MG in sodium chloride 0.9% (100 ml) 100 ML 220 MG IV (15:28)
[2023-12-12 20:43] LABS: Glucose Point of Care 112 mg/dL (70-110)
[2023-12-13] VITALS (9 sets, daily range): BP systolic 139–154; BP diastolic 82–91; PULSE 79–104; RESP 17–18; TEMP 36.6–37.1; O2SAT 92–96
[2023-12-13] MEDS: heparin 5,000 unit/mL INJ 1 mL 5000 UNIT SUBCUT ×2 (02:16→15:37)
[2023-12-13] MEDS: pantoprazole 40 mg SDV IVP ×2 (03:37→17:11)
[2023-12-13] MEDS: piperacillin-tazobactam 3.375 GM in sodium chloride 0.9% (plus) 50 ML IV ×3 (04:21→20:33)
[2023-12-13 05:47] LABS: Basophils % 0.2 %; Eosinophils % 0.2 %; Hematocrit 31.1 % (36-47); Lymphocytes # 0.8 10^3/uL (0.8-4.8); Lymphocytes % 13.5 %; Mean Corpuscular HGB Conc 32.5 g/dL (30-55); Mean Corpuscular Hemoglobin 28.6 pg (27-33); Mean Corpuscular Volume 88.1 fl (85-98); Monocytes # 0.3 10^3/uL (0.2-0.9); Monocytes % 4.3 %; Neutrophils # 4.69 10^3/uL (1.8-7.7); Neutrophils % 81.3 %; Nucleated Red Blood Cells % 0 %; Platelet Count 140 10^3/cmm (157-399); Red Blood Count 3.53 10^6/uL (3.85-5.65); Red Cell Distribution Width 14.9 % (12.1-15.1); White Blood Count 5.77 10^3/uL (3.29-11.43)
[2023-12-13 06:08] LABS: Alanine Aminotransferase 14 U/L (0-33); Albumin Level 2.4 g/dL (3.5-5.2); Alkaline Phosphatase 261 U/L (35-105); Anion Gap 13.7 (5-19); Aspartate Amino Transferase 25 U/L (0-32); Blood Urea Nitrogen 18 mg/dL (8-23); Calcium 7.6 mg/dL (8.5-10.5); Carbon Dioxide 15 mmol/L (22-29); Chloride 119 mmol/L (98-107); Creatinine Clr Calc Pharmacy 48.2834; Globulin 3.3 g/dL (1.3-4.6); Glucose 88 mg/dL (65-115); Osmolality Calculated 299 mOsm/kg (285-295); Potassium 3.7 mmol/L (3.5-5.1); Sodium 144 mmol/L (136-145); Total Bilirubin 0.3 mg/dL (0.15-1.2); Total Protein 5.7 g/dL (6.6-8.7)
[2023-12-13 07:00] LABS: Glucose Point of Care 86 mg/dL (70-110)
--- NOTE | 2023-12-13 09:42 | P.PN_ITS ---
Subjective 2 Subjective: Patient seen and examined. Denies any abdominal pain. Tolerating diet and positive BM Vitals/I&O/Wt Last Vital Signs Temp 98.4 F 12/14/23 08:05 Pulse 81 12/14/23 08:05 Resp 18 12/14/23 08:05 BP 154/91 12/14/23 08:05 Pulse Ox 96 12/14/23 08:05 O2 Del Method Room Air 12/14/23 08:05 O2 Flow Rate 2 12/12/23 10:00 12/13/23 12/14/23 12/14/23 22:59 06:59 14:59 Intake Total 400 / 1050 170 / 1220 530 / 530 Balance 400 / 700 170 / 870 530 / 530 Weight last 48 hrs Weight 143 lb 1 oz Weight 143 lb 1 oz Weight 143 lb 6 oz Weight 146 lb 7 oz Physical Exam 2 Narrative: General: No acute distress, awake alert and oriented x 3 Abdomen: Soft, mildly distended but she reports that this is her normal state, nontender except at injection sites, no guarding or rebound Data 12/14/23 06:30 12/14/23 06:30 Micro: Microbiology 12/10/23 17:30 E. coli Shiga-like Toxin (PCR) - Final Stool Campylobacter (PCR) - Final A&P Assessment and plan (1) Gastroenteritis: (2) Anemia: (3) Cardiopulmonary arrest: (4) Tick bites: Plan I suspect she became dehydrated from gastroenteritis and the resulting nausea and emesis. This may be viral. Stool studies: C. difficile negative, Salmonella still pending Her abdominal pain has resolved. I am not concerned about serious intra- abdominal pathology at this time. Recommend regular diet Await stool studies No acute surgical intervention Medical management per hospitalist Attestations 2 Medical Necessity Statement*: Per primary Coding Level of Care Code 00058 Diagnoses Gastroenteritis K52.9 Anemia D64.9 Cardiopulmonary arrest I46.9 Tick bites W57.XXXA
--- NOTE | 2023-12-13 10:06 | PC.SOCIAL ---
IMM Update pg 2 of IMM updated and reviewed w/ patient. Copy provided and copy dated, initialed and placed in chart.
[2023-12-13] MEDS: metoprolol tartrate 25 mg Tablet PO ×2 (10:28→20:33)
[2023-12-13] MEDS: doxycycline 100 mg Tablet PO ×2 (10:28→17:11)
[2023-12-13 11:25] LABS: Glucose Point of Care 94 mg/dL (70-110)
--- NOTE | 2023-12-13 12:54 | P.PN_ITS ---
Subjective 2 Subjective: No acute vents overnight. Patient has remained hemodynamically stable and afebrile on room air. Patient seen with family at bedside. She states she is feeling a lot better. Feeling stronger. Vitals/I&O/Wt Last Vital Signs Temp 97.9 F 12/13/23 11:58 Pulse 88 12/13/23 11:58 Resp 17 12/13/23 11:58 BP 143/88 12/13/23 11:58 Pulse Ox 95 12/13/23 11:58 O2 Del Method Room Air 12/13/23 11:58 O2 Flow Rate 2 12/12/23 10:00 12/12/23 12/13/23 12/13/23 22:59 06:59 14:59 Intake Total 770 / 1370 270 / 1640 650 / 650 Output Total 550 / 800 750 / 1550 350 / 350 Balance 220 / 570 -480 / 90 300 / 300 Weight last 48 hrs Weight 65.034 kg Weight 66.423 kg Weight 62.868 kg Physical Exam 2 Narrative: General: No acute distress, AO x3, sick appearing, NG tube in place on nasal cannula, weak appearing HEENT: PERRLA, pupils bilaterally equal and reactive Chest: Bilateral Dipti-Sucralate sounds all over lung field with decreased air entry, fine crackles up to mid lungs bilaterally CVS: S1-S2 regular, no murmurs, tachycardia, no gallops, no rubs Abdomen: Soft, nontender, no organomegaly, bowel sounds present but sluggish Neuro: No focal deficits, no facial deformity, AO x3, moving all limbs Resp: AUSCULTATION: diminished lung sounds Cardio: COMMON NORMALS: regular rate and regular rhythm RATE: regular rate RHYTHM: regular rhythm HEART SOUNDS: no murmurs Skin: COMMON NORMALS: negative for no rashes or lesions noted (scattered patches of petechial appearing erythema on legs (not new)) GENERAL SKIN EXAM: rashes and/or lesions noted (scattered patches of petechial appearing erythema on legs (not new)), mottling (feet only at present) and other (several adherent small ticks removed from feet) Data 12/13/23 05:12 12/13/23 05:12 A&P Assessment and plan (1) Gastroenteritis: (2) Leukopenia: Possible history of MDS as an outpatient. Follows up with oncology. No concerns for neutropenia for now. Continue to monitor. (3) Anemia: With history of possible MDS. Baseline hemoglobin around 11. Currently hemoglobin at baseline. Continue to monitor daily. Protonix as above. (4) Cardiopulmonary arrest: Reported by those at Mrs Stovall's place of employment who performed two rounds of chest compressions before EMS arrived. On EMS arrival, patient had a pulse and was breathing spontaneously. Blood pressure very low with first check and possible that it was low enough pulses not readily palpable. (5) Tick bites: History of tick bites in the past. History of tularemia in the past. Initiate doxycycline 100 mg twice daily. Plan Thrombocytopenia: Platelet back to baseline of around 166. Continue to monitor for now. 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 Type 2 diabetes mellitus: Ruled out. A1c 5.1. Hypoglycemia protocol. Plan for the day: DC Bean catheter. Blood pressures have been stable to mildly elevated. Goal blood pressure less than 140/90 mmHg. Start patient to metoprolol 25 mg twice daily. Continue with out of bed to chair, incentive spirometry. Physical therapy. Follow-up stool studies. Continue with IV Zosyn and doxycycline for now. Continue with IV iron supplementation. Advance to mechanical soft diet. Potassium level stable. Continue to monitor daily. Renal function is back to normal. LFTs have remained stable. Discharge plan: Plan to discharge home within next 24 hours with caregiver the patient remains hemodynamically stable and afebrile. Patient's plan is to stay with one of her sons for a week or so prior to living by herself. Home health has been arranged. Analgesia: Tylenol as needed Glycemic control: Not needed Nutrition: Full liquid. Advance as per tolerance. CODE STATUS: Full code PUD prophylaxis: Protonix OPD prophylaxis DVT prophylaxis: Heparin 5000 every 12 hourly This documentation was created by [employer] blood bank calendar control clerk software. Every effort was made to ensure accuracy of blood bank calendar control clerk. Any obvious errors or omissions should be clarified with the author of the document. Attestations 2 Medical Necessity Statement*: Requires further hospitalization for management of resolving sepsis in a patient who was admitted in septic shock on multiple pressors while safe discharge planning and cultures are awaited Diagnoses Gastroenteritis K52.9 Leukopenia D72.819 Anemia D64.9 Cardiopulmonary arrest I46.9 Tick bites W57.XXXA
[2023-12-13 15:09] LABS: Vancomycin Trough 4.9 ug/mL (10-15)
[2023-12-13] MEDS: iron sucrose 200 MG in sodium chloride 0.9% (100 ml) 100 ML 220 MG IV (15:47)
[2023-12-13 16:45] LABS: Glucose Point of Care 88 mg/dL (70-110)
[2023-12-13 21:18] LABS: Glucose Point of Care 107 mg/dL (70-110)
[2023-12-14] VITALS: BP 124/76; PULSE 62; RESP 17; TEMP 36.8; O2SAT 93
[2023-12-14] MEDS: pantoprazole 40 mg SDV IVP (03:03)
[2023-12-14] MEDS: heparin 5,000 unit/mL INJ 1 mL 5000 UNIT SUBCUT (03:03)
[2023-12-14] MEDS: piperacillin-tazobactam 3.375 GM in sodium chloride 0.9% (plus) 50 ML IV (03:38)
[2023-12-14 04:00] VITALS: BP 156/83; PULSE 75; RESP 17; TEMP 36.9; O2SAT 94
[2023-12-14 06:46] VITALS: PULSE 80
[2023-12-14 06:57] LABS: Basophils % 0.3 %; Eosinophils % 0.8 %; Lymphocytes # 0.7 10^3/uL (0.8-4.8); Lymphocytes % 18.4 %; Mean Corpuscular Hemoglobin 28.7 pg (27-33); Mean Corpuscular Volume 89.8 fl (85-98); Mean Platelet Volume 10.9 fL (7.4-10.4); Monocytes # 0.3 10^3/uL (0.2-0.9); Monocytes % 6.9 %; Neutrophils # 2.73 10^3/uL (1.8-7.7); Neutrophils % 72.8 %; Nucleated Red Blood Cells % 0 %; Platelet Count 136 10^3/cmm (157-399); Red Blood Count 3.34 10^6/uL (3.85-5.65); White Blood Count 3.75 10^3/uL (3.29-11.43)
[2023-12-14 07:01] LABS: Glucose Point of Care 93 mg/dL (70-110)
[2023-12-14 07:08] LABS: Alanine Aminotransferase 12 U/L (0-33); Albumin Level 2.5 g/dL (3.5-5.2); Alkaline Phosphatase 195 U/L (35-105); Anion Gap 10.7 (5-19); Aspartate Amino Transferase 24 U/L (0-32); Blood Urea Nitrogen 15 mg/dL (8-23); Calcium 7.3 mg/dL (8.5-10.5); Carbon Dioxide 17 mmol/L (22-29); Chloride 118 mmol/L (98-107); Creatinine Clr Calc Pharmacy 53.7314; Globulin 2.5 g/dL (1.3-4.6); Glucose 88 mg/dL (65-115); Osmolality Calculated 294 mOsm/kg (285-295); Potassium 3.7 mmol/L (3.5-5.1); Sodium 142 mmol/L (136-145); Total Bilirubin 0.3 mg/dL (0.15-1.2)
[2023-12-14 07:09] LABS: Magnesium 1.9 mg/dL (1.7-2.3)
[2023-12-14 08:05] VITALS: BP 154/91; PULSE 81; RESP 18; TEMP 36.9; O2SAT 96
[2023-12-14] MEDS: doxycycline 100 mg Tablet PO (08:21)
[2023-12-14] MEDS: metoprolol tartrate 25 mg Tablet PO (08:21)
--- NOTE | 2023-12-14 11:27 | P.DS_ITS ---
Discharge Providers Date of Admission: 12/10/23 12:23 Date of Discharge: December 14, 2023 Attending Provider at Admission: Mae Galarza MD Attending Provider at Discharge: Gregorio Lepe MD Consults: Surgery: Dr. Burk Primary Care Provider: Shade Duval DO Diagnoses at Discharge Discharge Diagnosis (1) Gastroenteritis: Status: Acute (2) Anemia: Status: Chronic Permanent problem details: Gets venofer infusions at times and had B12 supplementation in 11/2022 (3) Cardiopulmonary arrest: Status: Acute (4) Tick bites: Status: Acute Reason for Visit Reason for Visit: Gen weakness, Syncope Brief History: History as per HPI: Clare Stovall is a 73 year old female who presented to the emergency room after passing out at work today. She does not recall the details but from information available she was feeling okay this morning. She was sitting down and went to stand up and became dizzy and passed out. It sounds like she lost consciousness. Those who were near her did not notice her breathing nor feel a pulse and started CPR. She came to a short time later only to subsequently again look like she was not breathing and did not have a pulse. She received a second round of CPR. When EMS arrived Mrs. Stovall was awake and able to answer questions. She had a pulse and was breathing spontaneously but blood pressure was very low. Upon arrival to the emergency room her systolic pressures were in the 50s. She was given IV fluids and subsequently put on pressor support. Initial evaluation was focused on post arrest. Twelve-lead EKG did not show any acute ST segment changes. Initial cardiac enzymes were unremarkable. Mrs. Stovall has a history of hypertension but no other cardiovascular diagnoses. She has had some issues with anemia and leukopenia and has been evaluated by hematology/oncology over the last couple of years. White count today was found to be lower than it has ever been at 1.73 with an absolute neutrophil count of 610. Also identified was metabolic acidosis with lactic acid at 2.5 and acute kidney injury. She received additional fluids and was given empiric antibiotics to include vancomycin, Zosyn and doxycycline. ER provider removed a tick from her and she has had some tick bites. After being in the ER for a while patient started to have some nausea and vomiting. Vomitus consisted of the breakfast burrito from [employer] that she had this morning and bilious fluid. Hospitalist were contacted for admission. Additional pressor support had to be added for persistent hypertension. In talking with Mrs. Stovall she was feeling fine yesterday and even this morning when she got up. No specific complaints to note. She denies any headaches, vision changes, neck pain, fever, sore throat, runny nose, cough or shortness of breath, chest pain, abdominal pain. She has chronic constipation with her last bowel movement a couple of days ago which is her usual pattern. She is generally active going to a fitness center 3 times a week. She saw both of her sons that live here locally yesterday. One of them she saw at lunchtime and was doing well. The other when she saw yesterday evening. They walked around the yard before the rain came and sat on the porch for a while. She seemed like her normal self and was doing good. No issues reported overnight. She has never had a similar episode to this degree previously. When she had been identified as having leukopenia some years ago she had had multiple bee stings. 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 Laboratory workup showed abnormalities that subsequently identified tularemia for which she received treatment. She has had persistent leukopenia and neutropenia since then with extensive workup that has thus far been unrevealing for cause. 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 When she was last seen at the heme-onc clinic recommendation was for consideration of a repeat bone marrow biopsy which she has been thinking about. No new medications to report. She did take her medicines today. These do include amlodipine and lisinopril. Hospital Course Hospital Course Patient was admitted to the ICU for further evaluation and management of severe septic shock on multiple pressors along with mild acute kidney injury. On admission CT abdomen pelvis was concerning for dilated distal bowel for which surgery was consulted. She was started on IV fluid resuscitation. Patient responded really well to the treatment and was off pressors within 24 hours. During hospitalization multiple cultures including blood culture, urine culture remain negative. Stool for C. difficile was ruled out. Other studies including ova parasite and Shigella from stool are still pending. Tick panel was also sent out along with tularemia serology which are still pending. She was continued on broad-spectrum antibiotics along with doxycycline. Patient has been back to her baseline mentation, hemodynamics for last 48 hours. She has worked well with physical therapy. LEIDY has resolved. Bean catheter was removed on 12/12 and PICC line has been removed prior to discharge. She has been discharged in hemodynamically stable condition on oral doxycycline twice daily for next 7 days along with Levaquin for next 5 days with advised to maintain her hydration up to 60 ounces of fluid daily and follow-up with a primary care provider within next 1 week for a repeat CBC, CMP and follow-up on the blood work from tick panel and tularemia. Safe discharge plan were discussed in detail with the patient. Patient will be going to live with her son for a short while. Home health is being arranged. Physical Exam Narrative: General: No acute distress, AO x3, sick appearing, NG tube in place on nasal cannula, weak appearing HEENT: PERRLA, pupils bilaterally equal and reactive Chest: Bilateral Dipti-Sucralate sounds all over lung field with decreased air entry, fine crackles up to mid lungs bilaterally CVS: S1-S2 regular, no murmurs, tachycardia, no gallops, no rubs Abdomen: Soft, nontender, no organomegaly, bowel sounds present but sluggish Neuro: No focal deficits, no facial deformity, AO x3, moving all limbs Skin: COMMON NORMALS: negative for no rashes or lesions noted (scattered patches of petechial appearing erythema on legs (not new)) GENERAL SKIN EXAM: rashes and/or lesions noted (scattered patches of petechial appearing erythema on legs (not new)), mottling (feet only at present) and other (several adherent small ticks removed from feet) Discharge Data Studies Completed and Pending Completed Studies During Hospitalization Category Date Time Status CT abdomen pelvis wo con [id number] Stat Cat Scan 12/10/23 10:[address] chest wo con [id number] Routine Cat Scan 12/11/23 11:48 Completed CXRP [XR chest 1V portable [id number]] Routine Exams 12/10/23 14:39 Completed XR acute abdomen series [id number] Routine Exams 12/11/23 14:50 Completed XR chest 1V portable [id number] Stat Exams 12/10/23 09:55 Completed CV echo complete* [id number] Stat Ultrasound 12/10/23 12:05 Completed Pending at discharge Category Date Time Status Blood Culture Stat Lab 12/10/23 11:17 Results Francisella tularensis IgM/IgG Routine Lab 12/11/23 12:45 Received OVA and Parasites, Conc and PE Routine Lab 12/10/23 17:50 Received Salmonella / Shigella / Campy Routine Lab 12/11/23 11:36 Results Tick Panel Stat Lab 12/10/23 13:50 Results Radiology Impressions Abdomen/Pelvis CT 12/10/23 10:25 IMPRESSION: 1. Extensive sigmoid diverticulosis. No evidence of acute diverticulitis. 2. Fluid distended mid and distal small bowel loops with air and fluid in the colon. No visualized distal obstruction. Sigmoid constipation. 3. Diffuse thickening of jejunal small bowel loops in the LEFT upper quadrant suspicious for small bowel enteritis. 4. Large esophageal hiatal hernia with partial intrathoracic stomach with fluid distention and air-fluid levels. 5. Cholelithiasis. Gallbladder is contracted. Chest X-Ray 12/10/23 14:39 IMPRESSION: 1. Final image demonstrates PICC line in good position SVC/RA junction 2. No pneumothorax. 3. NG tube with tip in the large esophageal hiatal hernia with tip above the diaphragm and sidehole in the mid esophagus Chest CT 12/11/23 11:48 IMPRESSION: Dependent atelectasis. Small effusions. COMMENTS: Consistent with the [employer]'s Incidental Findings Committee white paper (J Am Mik Radiol 2018): Any incidental renal lesion less than 1 cm or classified as too small to characterize, or any incidental cystic renal lesion characterized as simple-appearing, is likely benign. No follow-up imaging is recommended for these lesions per consensus recommendations based on imaging criteria. Chest/Abdomen X-ray 12/11/23 14:50 IMPRESSION: Nonspecific. Microbiology 12/10/23 17:30 Stool E. coli Shiga-like Toxin (PCR) - Final 12/10/23 17:30 Stool Campylobacter (PCR) - Final 12/10/23 11:17 Blood Blood Culture - Preliminary NEGATIVE TO DATE 12/10/23 10:18 Blood Blood Culture - Preliminary NEGATIVE TO DATE 12/10/23 13:13 Urine Kidney Bacterial Antigens - Final 12/10/23 17:50 Stool Routine Collection Occult Blood (FIT) - Final Laboratory Results WBC 3.75 10^3/uL (3.29-11.43) 12/14/23 06:30 Corrected WBC Cancelled 12/12/23 03:50 RBC 3.34 10^6/uL (3.85-5.65) L 12/14/23 06:30 Hgb 9.60 g/dL (11.27-16.99) L 12/14/23 06:30 Hct 30.0 % (36-47) L 12/14/23 06:30 MCV 89.8 fl (85-98) 12/14/23 06:30 MCH 28.7 pg (27-33) 12/14/23 06:30 MCHC 32.0 g/dL (30-55) 12/14/23 06:30 RDW 15.0 % (12.1-15.1) 12/14/23 06:30 Plt Count 136 10^3/cmm (157-399) L 12/14/23 06:30 MPV 10.9 fL (7.4-10.4) H 12/14/23 06:30 Gran % Cancelled 12/12/23 03:50 Neut % (Auto) 72.8 % 12/14/23 06:30 Lymph % (Auto) 18.4 % 12/14/23 06:30 [place] % (Auto) 6.9 % 12/14/23 06:30 Eos % (Auto) 0.8 % 12/14/23 06:30 Baso % (Auto) 0.3 % 12/14/23 06:30 Neut # (Auto) 2.73 10^3/uL (1.8-7.7) 12/14/23 06:30 Lymph # (Auto) 0.7 10^3/uL (0.8-4.8) L 12/14/23 06:30 [place] # (Auto) 0.3 10^3/uL (0.2-0.9) 12/14/23 06:30 Eos # (Auto) 0.0 10^3/uL (0.0-0.8) 12/14/23 06:30 Baso # (Auto) 0.0 10^3/uL (0.0-0.1) 12/14/23 06:30 Absolute Gran (auto) Cancelled 12/12/23 03:50 Nucleated RBC % (auto) 0 % 12/14/23 06:30 Total Counted 100 (0-100) 12/11/23 06:55 Atypical Lymphs % 0.0 % (0-5) 12/11/23 06:55 Absolute Neutrophils 9.2 10^3/cmm (1.4-6.5) H 12/11/23 06:55 Segmented Neutrophils 59 % 12/11/23 06:55 Abs Segm Neuts (Man) 5.9 10/cmm (1.6-7.1) 12/11/23 06:55 Band Neutrophils 33.0 % 12/11/23 06:55 Abs Band Neuts (Man) 3.3 10^3/cmm (0.0-1.2) H 12/11/23 06:55 Absolute Lymphocytes 0.2 10^3/cmm (1.2-3.4) L 12/11/23 06:55 Lymphocytes (Manual) 2 % 12/11/23 06:55 Monocytes (Manual) 4.0 % 12/11/23 06:55 Absolute Monocytes 0.4 10^3/cmm (0.1-0.6) 12/11/23 06:55 Eosinophils (Manual) 0 % 12/11/23 06:55 Absolute Eosinophils 0.0 10^3/cmm (0.0-0.7) 12/11/23 06:55 Basophils (Manual) 0.0 % 12/11/23 06:55 Absolute Basophils 0.0 10^3/cmm (0.0-0.2) 12/11/23 06:55 Metamyelocytes 2.0 % 12/11/23 06:55 Nucleated RBCs # 0.0 /100WBC 12/14/23 06:30 Platelet Estimate Decreased (Normal) L 12/11/23 06:55 Giant Platelets Trace 12/11/23 06:55 Anisocytosis 1+ H 12/11/23 06:55 PT 17.40 SECONDS (12.1-14.9) H 12/10/23 13:50 INR 1.38 (0.8-1.2) H 12/10/23 13:50 APTT 35.9 SECONDS (23.9-36.7) 12/10/23 13:50 Specimen Type Arterial 12/11/23 04:35 Sample Site Radial, left 12/11/23 04:35 ABG pH 7.33 (7.35-7.45) L 12/11/23 04:35 ABG pCO2 23.9 mmHg (35-45) L 12/11/23 04:35 ABG pO2 64.5 mmHg (80.0-100.0) L 12/11/23 04:35 ABG PO2/FiO2 Ratio 0 12/11/23 04:35 ABG HCO3 12.5 mmol/L (22-26) L 12/11/23 04:35 ABG O2 Saturation 94.6 12/10/23 16:40 ABG Base Excess -11.8 mmol/L (-2.0-2.0) L 12/11/23 04:35 [place] Test Pos 12/11/23 04:35 A-a O2 Gradient 10.7 mmHg (5-10) H 12/10/23 16:40 Hematocrit 36.6 % (37-47) L 12/11/23 04:35 Hgb O2 Saturation 94.0 % (95-100) L 12/10/23 16:40 Carboxyhemoglobin 0.7 %THgb (0.4-20.1) 12/10/23 16:40 Methemoglobin < 0.0 % (0.4-1.5) L 12/10/23 16:40 Total Hemoglobin 12.5 g/dL (12-16) 12/10/23 16:40 Sodium 138.0 mmol/L (131-143) 12/10/23 16:40 Potassium 3.6 mmol/L (3.5-5.0) 12/10/23 16:40 Glucose 233.0 mg/dL (70-115) H 12/10/23 16:40 Ionized Calcium 1.2 mmol/L (1.1-1.4) 12/10/23 16:40 O2 Delivery Device Nc 12/11/23 04:35 O2 Liters/Min 3.0 % 12/11/23 04:35 FiO2 32.0 % 12/11/23 04:35 Nitrocellulose Operator ID Rosa 12/11/23 04:35 Sodium 142 mmol/L (136-145) 12/14/23 06:30 Potassium 3.7 mmol/L (3.5-5.1) 12/14/23 06:30 Chloride 118 mmol/L (98-107) H 12/14/23 06:30 Carbon Dioxide 17 mmol/L (22-29) L 12/14/23 06:30 Anion Gap 10.7 (5-19) 12/14/23 06:30 BUN 15 mg/dL (8-23) 12/14/23 06:30 Creatinine 0.7 mg/dL (0.5-0.9) 12/14/23 06:30 GFR Calculation Not Reportable 12/14/23 06:30 Glucose 88 mg/dL (65-115) 12/14/23 06:30 POC Glucose 93 mg/dL (70-110) 12/14/23 06:47 Estimat Average Glucose 100 12/11/23 06:55 Hemoglobin A1c 5.1 % (4.0-6.0) 12/11/23 06:55 Calculated Osmolality 294 mOsm/kg (285-295) 12/14/23 06:30 Lactic Acid 2.5 mmol/L (0.5-2.2) H 12/10/23 10:18 Lactic Acid (Sepsis) 5.2 mmol/L (0.5-2.2) H* 12/10/23 13:50 Lactate 1.4 mmol/L (0.5-2.2) 12/11/23 06:55 Uric Acid 5.9 mg/dL (2.4-5.7) H 12/11/23 06:55 Calcium 7.3 mg/dL (8.5-10.5) L 12/14/23 06:30 Phosphorus 3.0 mg/dL (2.5-4.5) 12/11/23 06:55 Magnesium 1.9 mg/dL (1.7-2.3) 12/14/23 06:30 Iron 9 ug/dL (37-145) L 12/11/23 06:55 TIBC 125 mcg/dl 12/11/23 06:55 % Saturation 7.2 % (20-50) L 12/11/23 06:55 Unsat Iron Binding 116 ug/dL (112-347) 12/11/23 06:55 Total Bilirubin 0.3 mg/dL (0.15-1.2) 12/14/23 06:30 AST 24 U/L (0-32) 12/14/23 06:30 ALT 12 U/L (0-33) 12/14/23 06:30 Alkaline Phosphatase 195 U/L (35-105) H 12/14/23 06:30 Creatine Kinase 37 U/L (26-192) 12/10/23 09:38 Troponin T Baseline 8 ng/L (0-10) 12/10/23 09:38 Troponin T 120 Minute 8.18 ng/L (0-10) 12/10/23 11:17 Delta Troponin T 0.18 ABS# (0-10) 12/10/23 11:17 Troponin T Hi Sens 6Hr 8.31 ng/L (0-10) 12/10/23 15:22 Troponin T Hi Sens 6Hr Delta 0.31 ng/L (0-12) 12/10/23 15:22 NT-Pro-B Natriuret Pep 213 pg/mL (0-450) 12/10/23 11:07 Total Protein 5.0 g/dL (6.6-8.7) L 12/14/23 06:30 Albumin 2.5 g/dL (3.5-5.2) L 12/14/23 06:30 Globulin 2.5 g/dL (1.3-4.6) 12/14/23 06:30 Triglycerides 59 mg/dL (0-150) 12/12/23 06:01 Cholesterol 91 mg/dL (0-200) 12/12/23 06:01 LDL Cholesterol, Calc 34 mg/dL (50-129) L 12/12/23 06:01 Total VLDL Cholesterol 12 mg/dL (0-30) 12/12/23 06:01 HDL Cholesterol 45 mg/dL (60-100) L 12/12/23 06:01 Cholesterol/HDL Ratio 2.02 mg/dL (0.0-4.40) 12/12/23 06:01 Lipase 14 U/L (13-60) 12/11/23 06:55 Vitamin B12 712 pg/mL (232-1245) 12/11/23 06:55 Folate > 20.0 ng/mL (4.8-37.3) 12/12/23 06:01 Procalcitonin 24.06 ng/mL (0-0.5) H 12/11/23 06:55 TSH 1.03 uIU/mL (0.27-4.20) 12/11/23 06:55 Urine Color [place] (Yellow) 12/10/23 13:13 Urine Appearance Hazy (CLEAR) A 12/10/23 13:13 Urine pH 5 (5-7) 12/10/23 13:13 Ur Specific [place] 1.020 (1.005-1.030) 12/10/23 13:13 Urine Protein 1+ (Negative) H 12/10/23 13:13 Urine Glucose (UA) Norm (Normal) 12/10/23 13:13 Urine Ketones 1+ (Negative) H 12/10/23 13:13 Urine Blood 2+ (Negative) H 12/10/23 13:13 Urine Nitrate Negative (Negative) 12/10/23 13:13 Urine Bilirubin 1+ (Negative) H 12/10/23 13:13 Urine Urobilinogen 1 mg/dL (Negative) H 12/10/23 13:13 Ur Leukocyte Esterase Negative (Negative) 12/10/23 13:13 Urine RBC 5-10 /hpf (0-2) H 12/10/23 13:13 Urine WBC 0-4 /hpf (0-5) H 12/10/23 13:13 Ur Squamous Epith Cells 0-4 /hpf (0-5) H 12/10/23 13:13 Ur Transition Epith Cell 5-10 /hpf 12/10/23 13:13 Amorphous Sediment Trace /hpf 12/10/23 13:13 Urine Bacteria Trace /hpf (NONE) 12/10/23 13:13 Hyaline Casts 0-4 /lpf H 12/10/23 13:13 Urine Mucus 2+ /hpf 12/10/23 13:13 Vancomycin Trough 4.9 ug/mL (10-15) L 12/13/23 14:28 Adenovirus (PCR) Not detected (NOT DETECT) 12/11/23 12:30 Lyme Ab (Western Blot) <0.90 index 12/10/23 13:50 C. pneumoniae DNA (PCR) Not detected (NOT DETECT) 12/11/23 12:30 C. difficile (PCR) Negative (Negative) 12/12/23 10:20 Coronavirus 229E (PCR) Not detected (NOT DETECT) 12/11/23 12:30 Human Metapneumovir PCR Not detected (NOT DETECT) 12/11/23 12:30 Influenza A (H1) PCR Not detected (NOT DETECT) 12/11/23 12:30 Influ A (H1/09) PCR Not detected (NOT DETECT) 12/11/23 12:30 Influenza A (H3) PCR Not detected (NOT DETECT) 12/11/23 12:30 Influenza Type A (PCR) Not detected (NOT DETECT) 12/11/23 12:30 Influenza Type B (PCR) Not detected (NOT DETECT) 12/11/23 12:30 M. pneumoniae (PCR) Not detected (NOT DETECT) 12/11/23 12:30 Parainfluenza 1 (PCR) Not detected (NOT DETECT) 12/11/23 12:30 Parainfluenza 2 (PCR) Not detected (NOT DETECT) 12/11/23 12:30 Parainfluenza 3 (PCR) Not detected (NOT DETECT) 12/11/23 12:30 Parainfluenza 4 (PCR) Not detected (NOT DETECT) 12/11/23 12:30 RSV Type A (PCR) Not detected (NOT DETECT) 12/11/23 12:30 RSV Type B (PCR) Not detected (NOT DETECT) 12/11/23 12:30 Entero/Rhino (PCR) Not detected (NOT DETECT) 12/11/23 12:30 SARS-CoV-2 (PCR) Not detected (NOT DETECT) 12/11/23 12:30 MRSA (PCR) Not detected (NOT DETECTED) 12/11/23 12:30 Blood Type O Positive 12/11/23 06:55 Rho(D) Type Rh positive 12/11/23 06:55 Antibody Screen Negative 12/11/23 06:55 Vitals Last Vital Signs Temp 98.4 F 12/14/23 08:05 Pulse 81 12/14/23 08:05 Resp 18 12/14/23 08:05 BP 154/91 12/14/23 08:05 Pulse Ox 96 12/14/23 08:05 O2 Del Method Room Air 12/14/23 08:05 O2 Flow Rate 2 12/12/23 10:00 Discharge Plan Discharge Patient Disposition: Home Health Service Condition: Stable Prescriptions: New doxycycline monohydrate 100 mg Tablet 100 mg PO BID Qty: 14 0RF metoprolol tartrate 25 mg Tablet 25 mg PO BID@0900,2100 30 Days Qty: 60 0RF levofloxacin 500 mg tablet 500 mg PO Q24H 5 Days Qty: 5 0RF ferrous fum-vit C-vit B12-FA 460-60-0.01-1 mg capsule 1 cap PO DAILY Qty: 30 0RF Continued multivitamin Tablet 1 tab PO DAILY ferrous sulfate [Feosol] 325 mg (65 mg iron) tablet 325 mg PO DAILY alendronate 70 mg tablet 70 mg PO .weekly amlodipine 10 mg tablet 10 mg PO QPM Held lisinopril 40 mg tablet 40 mg PO DAILY Hold Instructions: Resume on 12/28/23. Discharge Orders: Discharge Order (Routine); Ordered 12/14/23 Ordered By: Gregorio Lepe Other Ambulatory Orders: DME: Walker (Order) Location: None Selected Ordered By: Gregorio Lepe Referrals: Shade Duval DO [Primary Care Provider] - 12/23/23 2:00 pm Discharge Diet: Advance as tolerated and Soft Mechanical Discharge Activity: Resume usual activity and Increase activity as tolerated Patient Instructions: Opioid Safety Activity Restrictions/Additional Instructions: Continue with mechanical soft diet for next few days and then advance to regular diet within next 3 to 4 days. Amlodipine has been continued, metoprolol 25 mg twice daily has been added to her medication list. For now do not take lisinopril. Please continue checking your blood pressure daily at home maintain a blood pressure diary and follow-up with a primary care provider on set appointment for further adjustment of antihypertensive. Doxycycline is the antibiotic by mouth for next 7 days which she may take twice daily along with Levaquin 500 mg once daily for next 5 days. Please maintain your oral hydration with up to 2 L of fluids daily. If you have more than 2 bowel movements a day you can take [id number] Imodium daily as needed. Discharge Attestations Time Spent in Discharge Care*: greater than 30 min Specific Discharge Activities: educating patient, educating and/or supporting family/caregiver, discussing with pcp/other providers, discussing with cyanide case hardener/social workers/dc planners, documenting/other paperwork and evaluating patient/reviewing data Status at Discharge: Cognitive status at discharge: cognitively intact , Behavioral status at discharge: cooperative , Functional status at discharge: uses cane/walker , Overall status at discharge: patient is progressing back to baseline Quality Metrics Clinical Quality Measures [ No reported AMI, CVA or VTE this stay] Coding Level of Care Code 35128 Total time (in minutes) for Discharge: 60 Diagnoses Gastroenteritis K52.9 Anemia D64.9 Cardiopulmonary arrest I46.9 Tick bites W57.XXXA
[2023-12-14 11:41] LABS: Glucose Point of Care 77 mg/dL (70-110)
[2023-12-14 11:44] VITALS: BP 128/72; PULSE 73; RESP 18; TEMP 36.6; O2SAT 94
--- NOTE | 2023-12-14 12:29 | PC.NURSE ---
Discharge Note Patient discharged to home via private vehicle accompanied by son. Discharge instructions reviewed with patient and/or public service representative. Mobile pharmacy medications and/or prescriptions provided. Belongings/home medications returned.
[2023-12-14 12:37] VITALS: BP 128/72; PULSE 73; RESP 18; TEMP 36.6; O2SAT 94
[2023-12-14 16:35] LABS: RMSF IGG NOT DETECTED; RMSF IGM NOT DETECTED
[2023-12-14 21:04] LABS: E. Chaffeensis AB IGG <1:64; E. Chaffeensis AB IGM <1:20
[2023-12-16 21:29] LABS: F.tularensis IgG AB Serum Positive (Negative); F.tularensis IgM AB Serum Positive (Negative)
== END 2023-12-14 13:44 | disposition home or self-care (01) | DRG 871 ==
LOC: ER 10:26 → ICU 12:23 → MEDSURG 12-12 14:22
PROVIDERS: Surgery; Admitting Provider Hospitalist; Emergency Provider Family Medicine; PCP Electrodiagnostic Medicine; Visit Provider Student in an Organized Health Care Education/Training Program
DX: A41.9 Sepsis, unspecified organism (principal); I46.9 Cardiac arrest, cause unspecified; R65.21 Severe sepsis with septic shock; N17.9 Acute kidney failure, unspecified; E87.20 Acidosis, unspecified; D72.819 Decreased white blood cell count, unspecified; D64.9 Anemia, unspecified; M81.0 Age-related osteoporosis without current pathological fracture; K80.20 Calculus of gallbladder without cholecystitis without obstruction; I10 Essential (primary) hypertension; K52.9 Noninfective gastroenteritis and colitis, unspecified; D69.6 Thrombocytopenia, unspecified; S90.862A Insect bite (nonvenomous), left foot, initial encounter; S90.861A Insect bite (nonvenomous), right foot, initial encounter; W57.XXXA Bitten or stung by nonvenomous insect and other nonvenomous arthropods, initial encounter; Y92.9 Unspecified place or not applicable
CPT/HCPCS: 36415; 36416; 36573; 36592; 36600; 71045; 71250; 74022; 74176; 80048; 80051; 80053; 80061; 80202; 81001; 82274; 82330; 82550; 82607; 82746; 82803; 82805; 82962; 83036; 83540; 83550; 83605; 83690; 83735; 83880; 84100; 84145; 84443; 84484; 84550; 85007; 85025; 85610; 85730; 86160; 86403; 86618; 86666; 86668; 86757; 86850; 86900; 87040; 87045; 87177; 87209; 87427; 87449; 87486; 87493; 87581; 87633; 87641; 93005; 93306; 96365; 96366; 96367; 96372; 96375; 97110; 97116; 97161; 99285; C1751; C9113; J0131; J0692; J1644; J1756; J1815; J1940; J2405; J2543; J2598; J2765; J3370; J3490; J7030; J7050

== ENCOUNTER 2024-01-09 11:01 | Oncology outpatient (recurring) (ONCR) | payer MEDICARE, SELFPAY ==
[2024-01-09 11:57] LABS: Basophils % 0.7 %; Eosinophils # 0.2 10^3/uL (0.0-0.8); Eosinophils % 5.7 %; Hematocrit 35.9 % (36-47); Lymphocytes % 33.6 %; Mean Corpuscular HGB Conc 31.2 g/dL (30-55); Mean Corpuscular Hemoglobin 28.4 pg (27-33); Mean Corpuscular Volume 90.9 fl (85-98); Mean Platelet Volume 10.9 fL (7.4-10.4); Monocytes # 0.2 10^3/uL (0.2-0.9); Monocytes % 7.8 %; Neutrophils # 1.47 10^3/uL (1.8-7.7); Neutrophils % 51.8 %; Nucleated Red Blood Cells % 0 %; Platelet Count 174 10^3/cmm (157-399); Red Blood Count 3.95 10^6/uL (3.85-5.65); Red Cell Distribution Width 14.6 % (12.1-15.1); White Blood Count 2.83 10^3/uL (3.29-11.43)
[2024-01-09 12:19] LABS: Alanine Aminotransferase 10 U/L (0-33); Albumin Level 3.3 g/dL (3.5-5.2); Alkaline Phosphatase 88 U/L (35-105); Anion Gap 12.1 (5-19); Aspartate Amino Transferase 24 U/L (0-32); Blood Urea Nitrogen 11 mg/dL (8-23); Calcium 9.8 mg/dL (8.5-10.5); Carbon Dioxide 28 mmol/L (22-29); Chloride 102 mmol/L (98-107); Globulin 3.7 g/dL (1.3-4.6); Glucose 98 mg/dL (65-115); INR 0.91 (0.8-1.2); Osmolality Calculated 285 mOsm/kg (285-295); Potassium 4.1 mmol/L (3.5-5.1); Sodium 138 mmol/L (136-145); Total Bilirubin 0.2 mg/dL (0.15-1.2)
[2024-01-09 12:45] LABS: Hepatitis A Antibody IgM Non-Reactive (Nonreactive); Hepatitis B Core AB, Total Non-Reactive (Nonreactive); Hepatitis B Surface AB < 3.5 (11.5-1000); Hepatitis B Surface Antigen Non-Reactive (Nonreactive); Hepatitis C Virus Antibody Non-Reactive (Nonreactive)
[2024-01-09 17:49] LABS: Ferritin 751 ng/mL (15-150); Iron 38 ug/dL (37-145); Percent Saturation 22.6 % (20-50); Total Iron Binding Capacity 168 mcg/dl; Unsaturated Iron Binding 130 ug/dL (112-347); Vitamin B12 534 pg/mL (232-1245)
[2024-01-10 05:10] LABS: Folate Level 16.4 ng/mL (4.8-37.3)
[2024-01-10 12:35] LABS: Leukemia Profile (BBPL) See Report
[2024-01-13 08:45] LABS: Anti-Nuclear Antibody Screen NEGATIVE (NEGATIVE)
[2024-01-13 11:29] LABS: Zinc Level, Serum or Plasma 50 mcg/dL (60-130)
[2024-01-14 14:45] LABS: Methylmalonic Acid 311 nmol/L (87-318)
[2024-01-16 17:19] LABS: Soluble Transferrin Receptor 0.81 mg/L (0.76-1.76)
== END 2024-01-26 23:59 | disposition home or self-care (01) ==
PROVIDERS: Internal Medicine; PCP Electrodiagnostic Medicine; Visit Provider Nurse Practitioner Family
DX: D72.819 Decreased white blood cell count, unspecified (principal); D64.9 Anemia, unspecified; N17.9 Acute kidney failure, unspecified; Z11.59 Encounter for screening for other viral diseases; Z79.52 Long term (current) use of systemic steroids; Z79.899 Other long term (current) drug therapy
CPT/HCPCS: 36415; 80053; 82607; 82728; 82746; 83540; 83550; 83921; 84238; 84630; 85025; 85610; 86038; 86705; 86706; 86709; 86803; 87340; 88184; 88185; 99213

== ENCOUNTER → 2024-01-28 12:55 | Outpatient (BNVA) | payer MEDICARE, SELFPAY | PROVIDERS: PCP Electrodiagnostic Medicine; Visit Provider Student in an Organized Health Care Education/Training Program | DX: A21.9 Tularemia, unspecified (principal); W57.XXXA Bitten or stung by nonvenomous insect and other nonvenomous arthropods, initial encounter | CPT/HCPCS: 99205 ==

== ENCOUNTER 2024-02-10 11:11 | Outpatient (CLI) | payer MEDICARE, SELFPAY ==
[2024-02-10 11:59] LABS: Basophils % 0.4 %; Eosinophils # 0.1 10^3/uL (0.0-0.8); Hematocrit 35.3 % (36-47); Lymphocytes % 34.8 %; Mean Corpuscular HGB Conc 30.9 g/dL (30-55); Mean Corpuscular Hemoglobin 27.8 pg (27-33); Mean Corpuscular Volume 90.1 fl (85-98); Mean Platelet Volume 10.8 fL (7.4-10.4); Monocytes # 0.3 10^3/uL (0.2-0.9); Monocytes % 11.4 %; Neutrophils # 1.35 10^3/uL (1.8-7.7); Neutrophils % 49.4 %; Nucleated Red Blood Cells % 0 %; Platelet Count 190 10^3/cmm (157-399); Red Blood Count 3.92 10^6/uL (3.85-5.65); Red Cell Distribution Width 14.6 % (12.1-15.1); White Blood Count 2.73 10^3/uL (3.29-11.43)
[2024-02-10 12:27] LABS: Alanine Aminotransferase 8 U/L (0-33); Albumin Level 3.3 g/dL (3.5-5.2); Alkaline Phosphatase 78 U/L (35-105); Anion Gap 10.9 (5-19); Aspartate Amino Transferase 21 U/L (0-32); Blood Urea Nitrogen 15 mg/dL (8-23); Calcium 9.7 mg/dL (8.5-10.5); Carbon Dioxide 28 mmol/L (22-29); Chloride 104 mmol/L (98-107); Globulin 4.2 g/dL (1.3-4.6); Glucose 82 mg/dL (65-115); Osmolality Calculated 288 mOsm/kg (285-295); Potassium 3.9 mmol/L (3.5-5.1); Sodium 139 mmol/L (136-145); Total Bilirubin 0.2 mg/dL (0.15-1.2); Total Protein 7.5 g/dL (6.6-8.7)
== END 2024-02-10 11:12 | disposition home or self-care (01) ==
LOC: LAB 11:12
PROVIDERS: Internal Medicine; PCP Electrodiagnostic Medicine; Visit Provider Student in an Organized Health Care Education/Training Program
DX: D64.9 Anemia, unspecified (principal)
CPT/HCPCS: 36415; 80053; 85025

== ENCOUNTER 2024-03-09 13:02 | Oncology outpatient (recurring) (ONCR) | payer MEDICARE, SELFPAY ==
[2024-03-09 13:36] LABS: Basophils % 0.4 %; Eosinophils # 0.1 10^3/uL (0.0-0.8); Eosinophils % 2.9 %; Hematocrit 34.2 % (36-47); Lymphocytes # 0.8 10^3/uL (0.8-4.8); Lymphocytes % 33.3 %; Mean Corpuscular HGB Conc 30.7 g/dL (30-55); Mean Corpuscular Hemoglobin 27.3 pg (27-33); Mean Corpuscular Volume 88.8 fl (85-98); Mean Platelet Volume 11.3 fL (7.4-10.4); Monocytes # 0.3 10^3/uL (0.2-0.9); Monocytes % 11.1 %; Neutrophils # 1.26 10^3/uL (1.8-7.7); Neutrophils % 51.9 %; Nucleated Red Blood Cells % 0 %; Platelet Count 156 10^3/cmm (157-399); Red Blood Count 3.85 10^6/uL (3.85-5.65); Red Cell Distribution Width 15.4 % (12.1-15.1); White Blood Count 2.43 10^3/uL (3.29-11.43)
[2024-03-09 13:55] LABS: Alanine Aminotransferase 8 U/L (0-33); Albumin Level 3.5 g/dL (3.5-5.2); Alkaline Phosphatase 80 U/L (35-105); Anion Gap 12.7 (5-19); Aspartate Amino Transferase 25 U/L (0-32); Blood Urea Nitrogen 17 mg/dL (8-23); Calcium 9.5 mg/dL (8.5-10.5); Carbon Dioxide 28 mmol/L (22-29); Chloride 104 mmol/L (98-107); Glucose 121 mg/dL (65-115); Osmolality Calculated 295 mOsm/kg (285-295); Potassium 3.7 mmol/L (3.5-5.1); Sodium 141 mmol/L (136-145); Total Bilirubin 0.2 mg/dL (0.15-1.2); Total Protein 7.5 g/dL (6.6-8.7)
[2024-03-11 11:45] LABS: Copper Level 104 mcg/dL (70-175)
== END 2024-03-28 23:59 | disposition home or self-care (01) ==
PROVIDERS: PCP Electrodiagnostic Medicine; Visit Provider Nurse Practitioner Family
DX: D72.819 Decreased white blood cell count, unspecified (principal); D64.9 Anemia, unspecified; Z79.899 Other long term (current) drug therapy
CPT/HCPCS: 36415; 80053; 82525; 85025; 99214

== ENCOUNTER 2024-04-06 14:17 | Oncology outpatient (recurring) (ONCR) | payer MEDICARE, SELFPAY ==
[2024-04-06 14:48] LABS: Basophils % 0.4 %; Eosinophils # 0.1 10^3/uL (0.0-0.8); Eosinophils % 2.7 %; Hematocrit 35.5 % (36-47); Lymphocytes # 0.9 10^3/uL (0.8-4.8); Lymphocytes % 34.7 %; Mean Corpuscular HGB Conc 31.3 g/dL (30-55); Mean Corpuscular Hemoglobin 27.4 pg (27-33); Mean Corpuscular Volume 87.7 fl (85-98); Mean Platelet Volume 10.1 fL (7.4-10.4); Monocytes # 0.3 10^3/uL (0.2-0.9); Monocytes % 11.8 %; Neutrophils # 1.32 10^3/uL (1.8-7.7); Neutrophils % 50.4 %; Nucleated Red Blood Cells % 0 %; Platelet Count 143 10^3/cmm (157-399); Red Blood Count 4.05 10^6/uL (3.85-5.65); White Blood Count 2.62 10^3/uL (3.29-11.43)
[2024-04-06 15:26] LABS: Alanine Aminotransferase 9 U/L (0-33); Albumin Level 3.7 g/dL (3.5-5.2); Alkaline Phosphatase 80 U/L (35-105); Anion Gap 12.9 (5-19); Aspartate Amino Transferase 24 U/L (0-32); Blood Urea Nitrogen 14 mg/dL (8-23); Calcium 10.1 mg/dL (8.5-10.5); Carbon Dioxide 26 mmol/L (22-29); Chloride 103 mmol/L (98-107); Globulin 3.8 g/dL (1.3-4.6); Glucose 115 mg/dL (65-115); Osmolality Calculated 287 mOsm/kg (285-295); Potassium 3.9 mmol/L (3.5-5.1); Sodium 138 mmol/L (136-145); Total Bilirubin 0.2 mg/dL (0.15-1.2); Total Protein 7.5 g/dL (6.6-8.7)
== END 2024-04-27 23:59 | disposition home or self-care (01) ==
PROVIDERS: PCP Electrodiagnostic Medicine; Visit Provider Nurse Practitioner Family
DX: D64.9 Anemia, unspecified
CPT/HCPCS: 36415; 80053; 85025

== ENCOUNTER 2024-05-11 12:52 | Oncology outpatient (recurring) (ONCR) | payer MEDICARE, SELFPAY ==
[2024-05-11 13:32] LABS: Basophils % 0.4 %; Eosinophils # 0.1 10^3/uL (0.0-0.8); Eosinophils % 2.1 %; Hematocrit 37.3 % (36-47); Lymphocytes # 0.8 10^3/uL (0.8-4.8); Lymphocytes % 34.7 %; Mean Corpuscular HGB Conc 31.6 g/dL (30-55); Mean Corpuscular Hemoglobin 27.7 pg (27-33); Mean Corpuscular Volume 87.6 fl (85-98); Mean Platelet Volume 10.7 fL (7.4-10.4); Monocytes # 0.3 10^3/uL (0.2-0.9); Monocytes % 12.8 %; Neutrophils # 1.21 10^3/uL (1.8-7.7); Nucleated Red Blood Cells % 0 %; Platelet Count 166 10^3/cmm (157-399); Red Blood Count 4.26 10^6/uL (3.85-5.65); Red Cell Distribution Width 14.3 % (12.1-15.1); White Blood Count 2.42 10^3/uL (3.29-11.43)
[2024-05-11 13:44] LABS: Alanine Aminotransferase 6 U/L (0-33); Albumin Level 3.7 g/dL (3.5-5.2); Alkaline Phosphatase 90 U/L (35-105); Anion Gap 13.2 (5-19); Aspartate Amino Transferase 22 U/L (0-32); Blood Urea Nitrogen 11 mg/dL (8-23); Calcium 9.3 mg/dL (8.5-10.5); Carbon Dioxide 25 mmol/L (22-29); Chloride 106 mmol/L (98-107); Globulin 3.6 g/dL (1.3-4.6); Glucose 98 mg/dL (65-115); Osmolality Calculated 289 mOsm/kg (285-295); Potassium 4.2 mmol/L (3.5-5.1); Sodium 140 mmol/L (136-145); Total Bilirubin 0.2 mg/dL (0.15-1.2); Total Protein 7.3 g/dL (6.6-8.7)
== END 2024-05-28 23:59 | disposition home or self-care (01) ==
PROVIDERS: PCP Electrodiagnostic Medicine; Visit Provider Nurse Practitioner Family
DX: D64.9 Anemia, unspecified (principal); M81.0 Age-related osteoporosis without current pathological fracture
CPT/HCPCS: 36415; 80053; 85025; 99214

== ENCOUNTER 2024-08-18 09:23 | Oncology outpatient (recurring) (ONCR) | payer MEDICARE, SELFPAY ==
[2024-08-18 11:32] LABS: Basophils % 0.4 %; Eosinophils % 1.2 %; Hematocrit 39.1 % (36-47); Lymphocytes # 0.8 10^3/uL (0.8-4.8); Mean Corpuscular HGB Conc 31.2 g/dL (30-55); Mean Corpuscular Hemoglobin 28.1 pg (27-33); Mean Corpuscular Volume 90.1 fl (85-98); Mean Platelet Volume 10.8 fL (7.4-10.4); Monocytes # 0.4 10^3/uL (0.2-0.9); Monocytes % 14.5 %; Neutrophils # 1.25 10^3/uL (1.8-7.7); Neutrophils % 51.9 %; Nucleated Red Blood Cells % 0 %; Platelet Count 159 10^3/cmm (157-399); Red Blood Count 4.34 10^6/uL (3.85-5.65); Red Cell Distribution Width 13.6 % (12.1-15.1); Reticulocyte % 0.8 % (0.5-2.0); White Blood Count 2.41 10^3/uL (3.29-11.43)
[2024-08-18 11:49] LABS: Alanine Aminotransferase 9 U/L (0-33); Albumin Level 3.7 g/dL (3.5-5.2); Alkaline Phosphatase 90 U/L (35-105); Anion Gap 13.8 (5-19); Aspartate Amino Transferase 24 U/L (0-32); Blood Urea Nitrogen 19 mg/dL (8-23); Calcium 9.9 mg/dL (8.5-10.5); Carbon Dioxide 27 mmol/L (22-29); Chloride 102 mmol/L (98-107); Creatinine Clr Calc Pharmacy 43.8753; Globulin 3.7 g/dL (1.3-4.6); Glucose 88 mg/dL (65-115); Lactate Dehydrogenase 180 U/L (135-214); Osmolality Calculated 288 mOsm/kg (285-295); Potassium 4.8 mmol/L (3.5-5.1); Sodium 138 mmol/L (136-145); Total Bilirubin 0.2 mg/dL (0.15-1.2); Total Protein 7.4 g/dL (6.6-8.7)
[2024-08-18 13:38] LABS: Ferritin 411 ng/mL (15-150); Iron 57 ug/dL (37-145); Percent Saturation 28.2 % (20-50); Total Iron Binding Capacity 202 mcg/dl; Unsaturated Iron Binding 145 ug/dL (112-347)
[2024-08-18 13:39] LABS: Folate Level 11.1 ng/mL (4.8-37.3)
[2024-08-18 13:53] LABS: Vitamin B12 318 pg/mL (232-1245)
[2024-08-21 10:09] LABS: Soluble Transferrin Receptor 1.66 mg/L (0.76-1.76)
== END 2024-08-28 23:59 | disposition home or self-care (01) ==
PROVIDERS: Internal Medicine Hematology & Oncology; PCP Electrodiagnostic Medicine; Visit Provider Nurse Practitioner Family
DX: D50.9 Iron deficiency anemia, unspecified (principal); D72.819 Decreased white blood cell count, unspecified; Z79.899 Other long term (current) drug therapy
CPT/HCPCS: 36415; 80053; 82607; 82728; 82746; 83540; 83550; 83615; 84238; 85025; 85045; 99213

== ENCOUNTER 2024-11-17 08:55 | Oncology outpatient (recurring) (ONCR) | payer MEDICARE, SELFPAY ==
[2024-11-17 09:56] LABS: Alanine Aminotransferase 33 U/L (0-33); Albumin Level 3.5 g/dL (3.5-5.2); Alkaline Phosphatase 76 U/L (35-105); Anion Gap 13.1 (5-19); Aspartate Amino Transferase 45 U/L (0-32); Blood Urea Nitrogen 17 mg/dL (8-23); Calcium 9.3 mg/dL (8.5-10.5); Carbon Dioxide 23 mmol/L (22-29); Chloride 108 mmol/L (98-107); Ferritin 325 ng/mL (15-150); Globulin 4.1 g/dL (1.3-4.6); Glucose 62 mg/dL (65-115); Iron 54 ug/dL (37-145); Osmolality Calculated 290 mOsm/kg (285-295); Percent Saturation 27.5 % (20-50); Potassium 4.1 mmol/L (3.5-5.1); Sodium 140 mmol/L (136-145); Total Bilirubin 0.2 mg/dL (0.15-1.2); Total Iron Binding Capacity 196 mcg/dl; Total Protein 7.6 g/dL (6.6-8.7); Unsaturated Iron Binding 142 ug/dL (112-347)
[2024-11-17 10:08] LABS: Eosinophils # 0.1 10^3/uL (0.0-0.8); Eosinophils % 3.4 %; Hematocrit 35.5 % (36-47); Lymphocytes # 0.7 10^3/uL (0.8-4.8); Lymphocytes % 33.8 %; Mean Corpuscular Hemoglobin 27.3 pg (27-33); Mean Corpuscular Volume 88.1 fl (85-98); Mean Platelet Volume 10.7 fL (7.4-10.4); Monocytes # 0.3 10^3/uL (0.2-0.9); Monocytes % 14.7 %; Neutrophils % 46.6 %; Nucleated Red Blood Cells % 0 %; Platelet Count 186 10^3/cmm (157-399); Red Blood Count 4.03 10^6/uL (3.85-5.65); Red Cell Distribution Width 14.1 % (12.1-15.1); White Blood Count 2.04 10^3/uL (3.29-11.43)
[2024-11-17 10:11] LABS: Neutrophils # 0.95 10^3/uL (1.8-7.7)
== END 2024-11-25 23:59 | disposition home or self-care (01) ==
PROVIDERS: PCP Electrodiagnostic Medicine; Visit Provider Nurse Practitioner Family
DX: D50.9 Iron deficiency anemia, unspecified (principal); D72.819 Decreased white blood cell count, unspecified; R03.0 Elevated blood-pressure reading, without diagnosis of hypertension; D61.818 Other pancytopenia; Z79.899 Other long term (current) drug therapy
CPT/HCPCS: 36415; 80053; 82728; 83540; 83550; 85025; 99214

== ENCOUNTER 2024-12-17 10:54 | Oncology outpatient (recurring) (ONCR) | payer MEDICARE, SELFPAY ==
[2024-12-17 11:13] LABS: Basophils % 0.4 %; Eosinophils # 0.1 10^3/uL (0.0-0.8); Eosinophils % 2.3 %; Hematocrit 34.7 % (36-47); Lymphocytes # 0.7 10^3/uL (0.8-4.8); Lymphocytes % 27.3 %; Mean Corpuscular HGB Conc 30.8 g/dL (30-55); Mean Corpuscular Hemoglobin 27.4 pg (27-33); Mean Platelet Volume 10.7 fL (7.4-10.4); Monocytes # 0.3 10^3/uL (0.2-0.9); Monocytes % 13.3 %; Neutrophils # 1.44 10^3/uL (1.8-7.7); Neutrophils % 56.3 %; Nucleated Red Blood Cells % 0 %; Platelet Count 149 10^3/cmm (157-399); Red Cell Distribution Width 14.2 % (12.1-15.1); White Blood Count 2.56 10^3/uL (3.29-11.43)
[2024-12-17 11:31] LABS: Alanine Aminotransferase 8 U/L (0-33); Albumin Level 3.4 g/dL (3.5-5.2); Alkaline Phosphatase 84 U/L (35-105); Aspartate Amino Transferase 23 U/L (0-32); Blood Urea Nitrogen 17 mg/dL (8-23); Calcium 9.5 mg/dL (8.5-10.5); Carbon Dioxide 26 mmol/L (22-29); Chloride 104 mmol/L (98-107); Globulin 4.6 g/dL (1.3-4.6); Glucose 82 mg/dL (65-115); Osmolality Calculated 287 mOsm/kg (285-295); Sodium 138 mmol/L (136-145); Total Bilirubin 0.2 mg/dL (0.15-1.2)
== END 2024-12-26 23:59 | disposition home or self-care (01) ==
LOC: ONCMED 10:54
PROVIDERS: PCP Electrodiagnostic Medicine; Visit Provider Nurse Practitioner Family
DX: D61.818 Other pancytopenia (principal)
CPT/HCPCS: 36415; 80053; 85025

== ENCOUNTER 2025-02-16 10:19 | Oncology outpatient (recurring) (ONCR) | payer MEDICARE, SELFPAY ==
[2025-02-16 10:55] LABS: Hematocrit 36.2 % (36-47); Hemoglobin 11.30 g/dL (11.27-16.99); Mean Corpuscular HGB Conc 31.2 g/dL (30-55); Mean Corpuscular Hemoglobin 26.7 pg (27-33); Mean Corpuscular Volume 85.6 fl (85-98); Nucleated Red Blood Cells % 0 %; Platelet Count 163 10^3/cmm (157-399); Red Blood Count 4.23 10^6/uL (3.85-5.65); White Blood Count 2.22 10^3/uL (3.29-11.43)
[2025-02-16 11:02] LABS: Alanine Aminotransferase 7 U/L (0-33); Albumin Level 3.5 g/dL (3.5-5.2); Alkaline Phosphatase 80 U/L (35-105); Anion Gap 12.9 (5-19); Aspartate Amino Transferase 19 U/L (0-32); Blood Urea Nitrogen 15 mg/dL (8-23); Calcium 9.6 mg/dL (8.5-10.5); Carbon Dioxide 25 mmol/L (22-29); Chloride 101 mmol/L (98-107); Creatinine Clr Calc Pharmacy 44.5798; Ferritin 218 ng/mL (15-150); Globulin 4.2 g/dL (1.3-4.6); Glucose 77 mg/dL (65-115); Iron 40 ug/dL (37-145); Osmolality Calculated 280 mOsm/kg (285-295); Potassium 3.9 mmol/L (3.5-5.1); Sodium 135 mmol/L (136-145); Total Iron Binding Capacity 190 mcg/dl; Total Protein 7.7 g/dL (6.6-8.7); Unsaturated Iron Binding 150 ug/dL (112-347)
== END 2025-02-25 23:59 | disposition home or self-care (01) ==
PROVIDERS: Internal Medicine Medical Oncology; PCP Electrodiagnostic Medicine; Visit Provider Nurse Practitioner Family
DX: D50.9 Iron deficiency anemia, unspecified (principal); R03.0 Elevated blood-pressure reading, without diagnosis of hypertension; D61.818 Other pancytopenia
CPT/HCPCS: 36415; 80053; 82728; 83540; 83550; 85025; 99214